=== PATIENT | male | born 1980 | race Caucasian/White ===

== ENCOUNTER 2019-04-24 15:49 | Emergency (ER) | payer OTHER, SELFPAY ==
[2019-04-24 15:56] VITALS: BP 143/82; PULSE 100; RESP 16; TEMP 36.8; O2SAT 98
--- NOTE | 2019-04-24 15:59 | ED.URI ---
HPI - URI/Sore Throat General Chief Complaint: Upper Respiratory Infection Stated Complaint: asthma Time Seen by Provider: 04/24/19 15:59 Source: patient and RN notes reviewed History of Present Illness HPI Narrative: Patient is a 38-year-old male presents the urgent care with complaints of asthma complications. Patient states that for the last week he has been wheezing, cough, shortness of breath. Patient states that he has been using his inhalers, nebulizer solution, Singulair and Claritin as prescribed. Patient also reports of chills and sweats but denies taking his temperature. No other acute complaints. No acute distress noted. Patient read the plan of care. Related Data Home Medications Medication Instructions Recorded Confirmed albuterol sulfate 1.25 mg INHALATION Q4H PRN 04/24/19 04/24/19 albuterol sulfate 2 puff INHALATION QID PRN 04/24/19 04/24/19 fluticasone propion-salmeterol 1 inh INHALATION Q12H 04/24/19 04/24/19 [Wixela Inhub] loratadine 10 mg PO DAILY 04/24/19 04/24/19 montelukast [Singulair] 10 mg PO DAILY 04/24/19 04/24/19 Allergies Allergy/AdvReac Type Severity Reaction Status Date / Time No Known Allergies Allergy Verified 04/24/19 16:08 Review of Systems Review of Systems: Narrative: CONSTITUTIONAL: Reports of chills and sweats EYES: Denies visual changes, redness, or discharge. ENT: Reports of sinus congestion CARDIOVASCULAR: Denies chest pain, palpitations, or edema. RESPIRATORY: Reports of cough with dyspnea and wheezing GASTROINTESTINAL: Denies abdominal pain, nausea, vomiting, or diarrhea. GENITOURINARY: Denies dysuria or hematuria. SKIN: Denies rash or itching. MUSCULOSKELETAL: Denies back pain, joint pain, or myalgia. NEUROLOGIC: Denies headache, numbness, or weakness. PMFSH Comments At the time of my signature, I reviewed and agree with the nursing past medical, surgical, social, and family history. There is no relevant family history pertinent to the patient complaint. Exam Narrative: Exam Narrative: GENERAL: This is a well-nourished, well-developed patient, in no apparent distress. HEAD: normocephalic, atraumatic. EYES: PERRL. Sclera clear/white. Vision is grossly intact. EARS: External ears normal, auditory canals clear and without drainage, TMs normal without perforation. Hearing grossly intact. NOSE: External nose normal with no obvious nasal discharge, nares without redness, clear rhinorrhea. THROAT: Mucous membranes moist, posterior pharynx clear. NECK: Neck supple CARDIOVASCULAR: Regular rate and rhythm without murmurs, gallops, or rubs. RESPIRATORY: Moderate inspiratory and expiratory wheezes throughout slightly diminished left upper lobe SKIN: warm, intact with no suspicious lesions or rash, good texture and turgor. NEURO: awake, alert, and oriented to person, place and time. There were no obvious focal neurologic abnormalities. EXTREMITIES: No clubbing, cyanosis, or edema. Course Vital Signs Vital signs: Vital Signs Temperature 98.2 F 04/24/19 15:56 Pulse Rate 100 04/24/19 15:56 Respiratory Rate 16 04/24/19 15:56 Blood Pressure 143/82 H 04/24/19 15:56 Pulse Oximetry 98 04/24/19 15:56 Temperature 98.2 F 04/24/19 15:56 Pulse Rate 100 04/24/19 15:56 Respiratory Rate 16 04/24/19 15:56 Blood Pressure 143/82 H 04/24/19 15:56 Pulse Oximetry 98 04/24/19 15:56 Reviewed?patient is informed that they may have pre-hypertension or hypertension based on a blood pressure reading in the department. I recommend the patient call the primary care provider listed on their discharge instructions or a physician of their choice this week to arrange follow-up for further evaluation of possible pre-hypertension or hypertension. MDM - URI/Sore Throat MDM Narrative Medical decision making narrative: Advised the patient to complete antibiotic regimen as prescribed. Make sure to eat and drink with medication. Complete steroid regimen as prescribed. Increase f
== END 2019-04-24 16:15 | disposition home or self-care (01) ==
PROVIDERS: Emergency Provider Nurse Practitioner Family
DX: J40 Bronchitis, not specified as acute or chronic (principal)
CPT/HCPCS: 99213; G0463

== ENCOUNTER 2019-09-22 13:04 | Emergency (ER) | payer OTHER, SELFPAY ==
--- NOTE | ~2019-09-22 | XR_ITS ---
EXAMINATION: XR chest 2V EXAM DATE: 09/22/2019 13:36 INDICATION: Cough. TECHNIQUE: Frontal and lateral projections of the chest obtained and reviewed. Comparison is made to prior examination from 11/26/2018. FINDINGS: There is moderate sliding gastroesophageal hiatal hernia. Mild hyperinflation. The lungs ar e clear. There are no pleural effusions. The cardiomediastinal silhouette is within normal limits. There is no pneumothorax suspected. The bones and soft tissues are unremarkable. There is no sign ificant interval change. IMPRESSION: 1. No acute cardiopulmonary findings. 2. Moderate hiatal hernia. Reviewed, dictated and finalized at location B.
[2019-09-22 13:09] VITALS: BP 134/79; PULSE 90; RESP 14; TEMP 36.8; O2SAT 98
--- NOTE | 2019-09-22 13:48 | ED.URI ---
HPI - URI/Sore Throat General Chief Complaint: Upper Respiratory Infection Stated Complaint: chest congestion/cough Time Seen by Provider: 09/22/19 13:31 Source: patient and RN notes reviewed Mode of arrival: ambulatory Limitations: no limitations History of Present Illness HPI Narrative: Patient presents today complaining of a 3-week history of nasal congestion, chest congestion, occasional cough with clear sputum, and occasional shortness of breath with exertion. Denies fever, wheezing. He does have severe asthma and allergies. He has been using albuterol, Singulair, Claritin, Mucinex with some relief. He ran out of his nebulizer solution yesterday. MD elicited complaint: cough Related Data Home Medications Medication Instructions Recorded Confirmed albuterol sulfate 1.25 mg INHALATION Q4H PRN 04/24/19 09/22/19 albuterol sulfate 2 puff INHALATION QID PRN 04/24/19 09/22/19 loratadine 10 mg PO DAILY 04/24/19 09/22/19 montelukast [Singulair] 10 mg PO DAILY 04/24/19 09/22/19 fluticasone propion-salmeterol 1 inh INHALATION BID 09/22/19 09/22/19 Allergies Allergy/AdvReac Type Severity Reaction Status Date / Time No Known Allergies Allergy Verified 09/22/19 13:17 Review of Systems Review of Systems: Narrative: CONSTITUTIONAL: Denies body aches, fever, chills, or sweats. EYES: Denies visual changes, redness, or discharge. ENT: Denies rhinorrhea, congestion, sore throat, or otalgia. CARDIOVASCULAR: Denies chest pain, palpitations, or edema. RESPIRATORY: + Cough, chest congestion, shortness of breath with exertion GASTROINTESTINAL: Denies abdominal pain, nausea, vomiting, or diarrhea. GENITOURINARY: Denies dysuria or hematuria. SKIN: Denies rash, itching, or wounds. MUSCULOSKELETAL: Denies back pain, joint pain, or myalgia. NEUROLOGIC: Denies headache, numbness, tingling, or weakness. PSYCH: Denies depression or anxiety. [facility] Past Medical History Medical History (Updated 09/22/19 @ 13:52 by Chetna Alcocer, PROCEDURES ANALYST, BC) Asthma Seasonal allergies Comments At time of signature, I have reviewed and agree with nursing past medical, surgical, social and family history unless otherwise noted. Please see nursing chart for further information. There is no relevant family history pertinent to the presenting complaint Exam Narrative: Exam Narrative: GENERAL: Well-appearing, well-nourished, and in no acute distress. HEAD: Normocephalic, atraumatic. EYES: EOMI. No redness or drainage. Conjunctivae normal. ENT: Mucous membranes pink and moist. Nares clear. No rhinorrhea. TMs normal bilaterally. Throat normal. Uvula midline. NECK: Normal AROM. Supple. No lymphadenopathy. CHEST: No respiratory distress. Clear to auscultation. HEART: Regular rate and rhythm. No murmur appreciated. Normal peripheral pulses. EXTREMITIES: Normal range of motion. No edema. SKIN: Warm, dry, no rash. Capillary refill normal. Normal skin turgor. NEURO: No focal deficits. Alert and oriented x3. Gait steady. PSYCH: Normal affect. No signs of depression or anxiety. Course Vital Signs Vital signs: Vital Signs Temperature 98.3 F 09/22/19 13:09 Pulse Rate 90 09/22/19 13:09 Respiratory Rate 14 09/22/19 13:09 Blood Pressure 134/79 09/22/19 13:09 Pulse Oximetry 98 09/22/19 13:09 Temperature 98.3 F 09/22/19 13:09 Pulse Rate 90 09/22/19 13:09 Respiratory Rate 14 09/22/19 13:09 Blood Pressure 134/79 09/22/19 13:09 Pulse Oximetry 98 09/22/19 13:09 Reviewed. Pt has been instructed to follow up with his PCP regarding his elevated blood pressure today. MDM - URI/Sore Throat Differential Diagnosis Differential diagnosis: Likely upper respiratory infection, sinusitis, bronchitis and other (Asthma exacerbation, pneumonia) Imaging Data Radiologist's impression: ITS Impressions Chest X-Ray 09/22/19 13:37 IMPRESSION: 1. No acute cardiopulmonary findings. 2. Moderate hiatal hernia. Crit
== END 2019-09-22 14:00 | disposition home or self-care (01) ==
PROVIDERS: Emergency Provider Nurse Practitioner; PCP Internal Medicine
DX: J45.901 Unspecified asthma with (acute) exacerbation (principal)
CPT/HCPCS: 71046; 99213; G0463

== ENCOUNTER 2020-11-12 12:38 | Emergency (ER) | payer OTHER, SELFPAY ==
[2020-11-12 12:45] VITALS: BP 137/70; PULSE 100; RESP 18; TEMP 37.8; O2SAT 97
[2020-11-12 12:54] VITALS: BP 137/70; PULSE 100; RESP 18; TEMP 37.8; O2SAT 97
--- NOTE | 2020-11-12 13:15 | ED.ASTHMA ---
HPI - Asthma General Chief Complaint: Asthma Stated Complaint: asthma issues Time Seen by Provider: 11/12/20 13:16 Source: patient and RN notes reviewed Mode of arrival: ambulatory Limitations: no limitations History of Present Illness HPI Narrative: 40-year-old male with history of asthma neuromuscular disease presents with concern for asthma exacerbation. Reports he has been using his nebulizer every 6 hours with persistent wheezing. He reports body aches, cough, rhinorrhea, nasal congestion. He denies current shortness of breath, loss of sense of taste or smell. Denies known sick contacts. MD complaint: wheezing Related Data Home Medications Medication Instructions Recorded Confirmed albuterol sulfate 2 puff INHALATION QID PRN 04/24/19 11/12/20 loratadine 10 mg PO DAILY 04/24/19 11/12/20 montelukast [Singulair] 10 mg PO DAILY 04/24/19 11/12/20 fluticasone propion-salmeterol 250 inh INHALATION BID PRN 11/12/20 11/12/20 [Wixela Inhub] Allergies Allergy/AdvReac Type Severity Reaction Status Date / Time No Known Allergies Allergy Verified 09/22/19 13:17 Review of Systems Review of Systems: CONSTITUTIONAL: Denies malaise, chills, sweats, or fever. EYES: Denies visual changes, redness, or discharge. ENT: Reports rhinorrhea, congestion. Denies sinus pain, otalgia and sore throat. CARDIOVASCULAR: Denies chest pain, palpitations, or edema. RESPIRATORY: Reports cough, wheezing, dyspnea. GASTROINTESTINAL: Denies abdominal pain, nausea, vomiting, diarrhea SKIN: Denies rash or itching. MUSCULOSKELETAL: Reports myalgia. NEUROLOGIC: Denies headache. All systems reviewed & are unremarkable except as noted in HPI and below PMFSH Past Medical History Medical History (Updated 11/12/20 @ 13:24 by Iram Palencia NP) Asthma Seasonal allergies Social History Social History Gender identity (if verbalized by the patient): Male Comments At time of signature, agree with nursing past medical, surgical, social and family history. There is no relevant family history pertinent to the presenting complaint Exam Narrative: GENERAL: Well-appearing, well-nourished, and in no acute distress. HEAD: Normocephalic EYES: PERRLA, conjunctivae clear ENT: Nares clear, clear discharge. Mucous membranes moist. TM pearly machado with dull light reflex bilaterally; no tragal tenderness. Oropharynx not erythematous without lesions. Tonsils not enlarged and without exudate, no drooling, no hoarseness, no trismus, uvula midline. NECK: Supple. No lymphadenopathy CHEST: Scattered inspiratory and expiratory wheeze, scattered rhonchi, breath sounds equal. Ge, or stridor. No respiratory distress, speaks in full sentences. HEART: Regular rate and rhythm. No murmur heard. SKIN: Warm, dry, no rash. NEURO: Alert and oriented x3. PSYCH: Normal mood and affect Course Course Emergency Course: Patient is aware of diagnosis, understands and agrees to treatment plan. Anticipatory guidance given. Patient agrees to follow-up as directed and is aware of reasons to seek care at the emergency department. Portions of this record may have been created with voice recognition software Vital Signs Vital signs: Vital Signs Temperature 100.1 F H 11/12/20 12:45 Pulse Rate 100 11/12/20 12:45 Respiratory Rate 18 11/12/20 12:45 Blood Pressure 137/70 11/12/20 12:45 Pulse Oximetry 97 11/12/20 12:45 Temperature 100.1 F H 11/12/20 12:54 Pulse Rate 100 11/12/20 12:54 Respiratory Rate 18 11/12/20 12:54 Blood Pressure 137/70 11/12/20 12:54 Pulse Oximetry 97 11/12/20 12:54 Reviewed. Pt has been instructed to follow up with his primary care provider within the next week regarding his elevated blood pressure today. MDM - Asthma MDM Narrative Medical decision making narrative: Differential diagnosis considered: Siddiqui virus, strep pharyngitis, allergic rhinitis, upper respiratory tract infection, sinusitis, rhinosinusitis, nasopharyngiti
== END 2020-11-12 13:43 | disposition home or self-care (01) ==
PROVIDERS: Emergency Provider Nurse Practitioner; PCP Internal Medicine
DX: J45.41 Moderate persistent asthma with (acute) exacerbation (principal); Z20.822 Contact with and (suspected) exposure to COVID-19
CPT/HCPCS: 87426; 99213; C9803; G0463

== ENCOUNTER 2021-05-08 15:11 | Emergency (ER) | payer OTHER, SELFPAY ==
--- NOTE | ~2021-05-08 | XR_ITS ---
EXAMINATION: XR chest 2V DATE: 05/08/2021 15:39 INDICATION: Cough and congestion TECHNIQUE: PA and lateral views of the chest are obtained. COMPARISON: 09/22/2019 FINDINGS: The lungs are free of acute opacities. There is no pleural effusion or pneumothorax. The he art size is normal. There is a moderate-sized hiatal hernia. There is mild thoracic spondylosis. IMPRESSION: 1. No acute cardiopulmonary abnormality. Reviewed, dictated and finalized at location F. RAM ASSISTANT
[2021-05-08 15:16] VITALS: BP 142/80; PULSE 97; RESP 20; TEMP 36.9; O2SAT 98
--- NOTE | 2021-05-08 15:45 | ED.URI ---
HPI - URI/Sore Throat General Chief Complaint: Upper Respiratory Infection Stated Complaint: Chest Congestion Time Seen by Provider: 05/08/21 15:25 Source: patient, RN notes reviewed and old records reviewed Mode of arrival: ambulatory Limitations: no limitations History of Present Illness HPI Narrative: 40-year-old male who presents to [facility] care with complaints of cough, congestion,shortness of breath, wheezing , and orthopnea for the past 4 days. Patient reports that he has been using his nebulizer and treatments didn't seem to be relieving his symptoms. Patient has scattered wheezing throughout lung wilkinson with tightness and shortness of breath. Patient is able to speak inn full sentences no nasal flaring or tachypnea noted. Patient reports that he has not had COVID vaccinations. MD elicited complaint: cough and other (Shortness of breath and wheezing) Pertinent past history: asthma and seasonal allergies Onset (ago): day(s) (4) Consistency: constant Severity: moderate Description of mucous: clear Able to tolerate fluids by mouth: Yes Exacerbating factors: exertion Relieving factors: other (treatments help some) Associated symptoms: cough Treatments prior to arrival: other (neb treatments) Related Data Home Medications Medication Instructions Recorded Confirmed albuterol sulfate 2 puff INHALATION QID PRN 04/24/19 05/08/21 loratadine 10 mg PO DAILY 04/24/19 05/08/21 montelukast [Singulair] 10 mg PO DAILY 04/24/19 05/08/21 atorvastatin 10 mg PO DAILY 05/08/21 05/08/21 fluticasone propion-salmeterol 1 inh INHALATION Q12H 05/08/21 05/08/21 [Advair Diskus] Allergies Allergy/AdvReac Type Severity Reaction Status Date / Time No Known Allergies Allergy Verified 05/08/21 15:34 Review of Systems Review of Systems: CONSTITUTIONAL: Denies fever, chills, or sweats. EYES: Denies visual changes, redness, or discharge. ENT: Denies rhinorrhea, congestion, sore throat, or otalgia. CARDIOVASCULAR: Denies chest pain, palpitations, or edema. RESPIRATORY: Positive cough or dyspnea. GASTROINTESTINAL: Denies abdominal pain, nausea, vomiting, or diarrhea. GENITOURINARY: Denies dysuria or hematuria. SKIN: Denies rash or itching. MUSCULOSKELETAL: Denies back pain, joint pain, or myalgia. NEUROLOGIC: Denies headache, numbness, or weakness. PSYCHIATRIC: Positive history of anxiety or depression. All systems reviewed & are unremarkable except as noted in HPI and below PMFSH Past Medical History Medical History (Updated 05/08/21 @ 21:54 by Kiley Perales NP) Asthma Muscular dystrophy Seasonal allergies Social History Social History (Updated 05/08/21 @ 22:04 by Kiley Perales NP) Social History: Has some exposure to 2nd hand tobacco Smoking packs per day: 0.25 Smoking cigarettes per day: 5.0 Years smoked: 20 Smoking pack-years: 5.00 Smoking status: Former smoker Additional smoking assessment comments: quit one year ago Alcohol intake: never Substance use: never Living arrangements: with family Gender identity (if verbalized by the patient): Male Comments At time of signature, agree with nursing past medical, surgical, social and family history. There is no relevant family history pertinent to the presenting complaint Exam Narrative: GENERAL: Well-appearing, well-nourished, and in no acute distress. HEAD: Normocephalic, atraumatic. EYES: PERRLA and EOMI. ENT: Nares clear, no rhinorrhea or epistaxis. Mucous membranes moist.TM's normal with good light reflex, throat pink with no lesions or exudates, no tonsil swelling, edentulous NECK: Supple.no lymphadenopathy CHEST: Scattered wheezing on auscultation. No respiratory distress.SAO2 98% on room air. Able to speak in full sentences, no nasal flaring or any tachypnea noted. HEART: Regular rate and rhythm. No murmur heard. Normal peripheral pulses. ABDOMEN: Soft, nontender, nondistended, normal active bowel sounds. EXTREMITIES: Normal range of motion.
[2021-05-08] MEDS: IPRATROPIUM BR 0.02% INH SOLN 0.5 MG/2.5 ML VIAL INHALATION (16:00)
[2021-05-08] MEDS: ALBUTEROL SULFATE NEB 2.5 MG/3 ML INH INHALATION (16:00)
== END 2021-05-08 17:05 | disposition home or self-care (01) ==
PROVIDERS: Emergency Provider Registered Nurse; PCP Internal Medicine
DX: J45.41 Moderate persistent asthma with (acute) exacerbation (principal); Z20.822 Contact with and (suspected) exposure to COVID-19; Z87.891 Personal history of nicotine dependence; G71.00 Muscular dystrophy, unspecified
CPT/HCPCS: 71046; 87426; 94640; 99213; C9803; G0463

== ENCOUNTER 2021-08-23 13:17 | Emergency (ER) | payer OTHER, SELFPAY ==
[2021-08-23 13:40] VITALS: BP 137/79; PULSE 111; RESP 16; TEMP 37.1; O2SAT 95
--- NOTE | 2021-08-23 14:39 | ED.URI ---
HPI - URI/Sore Throat General Chief Complaint: Upper Respiratory Infection Stated Complaint: Cough/Chest Congestion/Fever Time Seen by Provider: 08/23/21 14:39 Source: patient Mode of arrival: ambulatory Limitations: no limitations History of Present Illness HPI Narrative: 40-year-old male presents to [facility] care with complaints of cough, chest congestion with fever up to 103 since 5 days. Patient reports that his mother has also been ill and his brother, reports that he has not had COVID vaccinations or flu shot.. Patient reports that his cough is making it hard to sleep and he also has asthma with some wheezing noted. Patient reports that he has felt some dyspnea and has been using his inhaler. MD elicited complaint: fever, cough and other (dyspnea and wheezing) Pertinent past history: asthma Onset (ago): day(s) (5) Description of mucous: clear Treatments prior to arrival: other (Mucinex and inhalers) Related Data Home Medications Medication Instructions Recorded Confirmed albuterol sulfate 90 mcg/actuation 2 puff inhalation QID PRN 04/24/19 08/23/21 aerosol inhaler Shortness Of Breath Or Wheezing montelukast 10 mg tablet 10 mg PO DAILY 04/24/19 08/23/21 (Singulair) atorvastatin 10 mg tablet 10 mg PO DAILY 05/08/21 08/23/21 fluticasone 250 mcg-salmeterol 50 1 inh inhalation Q12H 05/08/21 08/23/21 mcg/dose blistr powdr for inhalation (Advair Diskus) Allergies Allergy/AdvReac Type Severity Reaction Status Date / Time No Known Allergies Allergy Verified 08/23/21 13:29 Review of Systems Review of Systems: CONSTITUTIONAL: Positive episodes of fever, chills, or sweats. EYES: Denies visual changes, redness, or discharge. ENT:Positive for rhinorrhea, congestion, no sore throat, or otalgia. CARDIOVASCULAR: Denies chest pain, palpitations, or edema. RESPIRATORY: Positive for cough and some dyspnea. GASTROINTESTINAL: Denies abdominal pain, nausea, vomiting, or diarrhea. GENITOURINARY: Denies dysuria or hematuria. SKIN: Denies rash or itching. MUSCULOSKELETAL: Denies back pain, joint pain, or myalgia. NEUROLOGIC: Denies headache, numbness, or weakness. PSYCHIATRIC: Denies anxiety or depression. [facility] Past Medical History Medical History Asthma Muscular dystrophy Seasonal allergies Social History Social History Social History: Has some exposure to 2nd hand tobacco Smoking packs per day: 0.25 Smoking cigarettes per day: 5.0 Years smoked: 20 Smoking pack-years: 5.00 Smoking status: Former smoker Additional smoking assessment comments: quit one year ago Alcohol intake: never Substance use: never Gender identity (if verbalized by the patient): Male Comments at time of signature, agree with nursing past medical, surgical, social and family history. There is no relevant family history pertinent to the presenting complaint Exam Narrative: GENERAL: Well-appearing, well-nourished, and in no acute distress. HEAD: Normocephalic, atraumatic. EYES: PERRLA and EOMI. ENT: Nares red with clear rhinorrhea no epistaxis. Mucous membranes moist.TM's normal with good light reflex throat pink with no lesions or exudates no tonsil enlargement, NECK: Supple. no lymphadenopathy CHEST: Clear to auscultation. No respiratory distress.SAO2 95% on room air HEART: Regular rate and rhythm. No murmur heard. Normal peripheral pulses. ABDOMEN: Soft, nontender, nondistended, normal active bowel sounds. EXTREMITIES: Normal range of motion. No edema. SKIN: Warm, dry, no rash. NEURO: No focal deficits. Alert and oriented x3. Course Course Level of Care: Express Care Visit Vital Signs Vital signs: Vital Signs Temperature 37.1 C 08/23/21 13:40 Pulse Rate 111 H 08/23/21 13:40 Respiratory Rate 16 08/23/21 13:40 Blood Pressure 137/79 08/23/21 13:40 Pulse Oximetry 95 08/23/21 13:40 Oxy
--- NOTE | 2021-08-23 15:08 | ED.URI ---
HPI - URI/Sore Throat General Chief Complaint: Upper Respiratory Infection Stated Complaint: Cough/Chest Congestion/Fever Time Seen by Provider: 08/23/21 14:39 Source: patient Mode of arrival: ambulatory Limitations: no limitations History of Present Illness HPI Narrative: 40-year-old male who presents to [facility] care with complaints of illness since . He also reports that his mother and brother have been ill with similar symptoms. Patient has history of asthma and takes daily inhalers. Patient states cough has increased and is affecting his sleep Treatments prior to arrival: other (Mucinex and inhalers) Related Data Home Medications Medication Instructions Recorded Confirmed albuterol sulfate 90 mcg/actuation 2 puff inhalation QID PRN 04/24/19 08/23/21 aerosol inhaler Shortness Of Breath Or Wheezing montelukast 10 mg tablet 10 mg PO DAILY 04/24/19 08/23/21 (Singulair) atorvastatin 10 mg tablet 10 mg PO DAILY 05/08/21 08/23/21 fluticasone 250 mcg-salmeterol 50 1 inh inhalation Q12H 05/08/21 08/23/21 mcg/dose blistr powdr for inhalation (Advair Diskus) Allergies Allergy/AdvReac Type Severity Reaction Status Date / Time No Known Allergies Allergy Verified 08/23/21 13:29 [facility] Past Medical History Medical History Asthma Muscular dystrophy Seasonal allergies Social History Social History Social History: Has some exposure to 2nd hand tobacco Smoking packs per day: 0.25 Smoking cigarettes per day: 5.0 Years smoked: 20 Smoking pack-years: 5.00 Smoking status: Former smoker Additional smoking assessment comments: quit one year ago Alcohol intake: never Substance use: never Gender identity (if verbalized by the patient): Male Course Vital Signs Vital signs: Vital Signs Temperature 37.1 C 08/23/21 13:40 Pulse Rate 111 H 08/23/21 13:40 Respiratory Rate 16 08/23/21 13:40 Blood Pressure 137/79 08/23/21 13:40 Pulse Oximetry 95 08/23/21 13:40 Oxygen Delivery Room Air 08/23/21 13:40 Temperature 37.1 C 08/23/21 13:40 Pulse Rate 111 H 08/23/21 13:40 Respiratory Rate 16 08/23/21 13:40 Blood Pressure 137/79 08/23/21 13:40 Pulse Oximetry 95 08/23/21 13:40 Oxygen Delivery Room Air 08/23/21 13:40 MDM - URI/Sore Throat Medical Records Attestation: I reviewed the patient's medical records. Critical Care Time Critical Care Time Critical Care Time: No Discharge Plan Discharge Clinical Impression: URI, acute Asthma exacerbation Qualifiers: Asthma severity: moderate Asthma persistence: persistent Qualified Code(s): J45.41 - Moderate persistent asthma with (acute) exacerbation Patient Disposition: Home, Self-Care Condition: Stable Instructions: Antibiotic Form, Bronchospasm (ED) Additional Instructions: Increase fluids especially juices and water [id number] cough and cold medicine of your choice for your symptoms Continue your inhaler/nebulizer as directed Steroids as directed--take with food heat to the face 20-30 minutes 4-6 times a day for pain Salt water gargles, throat lozenges or throat sprays as desired Antibiotic as directed--finished the medication If your symptoms persist, change or worsen significantly before you can contact your personal physician then please, without delay, go to the emergency department for further evaluation. Follow-up with PCP in 7-10 days or sooner if needed Follow up with PCP soon in regards to your blood pressure which is elevated above threshold for referral. Blood pressure above 120/80 may indicate pre-hypertension. Prescriptions: New azithromycin 250 mg tablet See Rx Instructions .ROUTE .COMPLEX Qty: 6 0RF Rx Instructions: For 250 mg dose pack: take 500 mg today (day 1), then 250 mg for 4 days (days 2-5) prednisone 10 mg tablet 10 mg PO DAILY Qty:
== END 2021-08-23 15:19 | disposition home or self-care (01) ==
PROVIDERS: Emergency Provider Registered Nurse; PCP Internal Medicine
DX: J45.901 Unspecified asthma with (acute) exacerbation (principal); J06.9 Acute upper respiratory infection, unspecified; Z87.891 Personal history of nicotine dependence; G71.00 Muscular dystrophy, unspecified
CPT/HCPCS: 99213; G0463

== ENCOUNTER 2022-01-02 13:44 | Emergency (ER) | payer OTHER, SELFPAY ==
[2022-01-02 13:46] VITALS: BP 156/86; PULSE 98; RESP 16; TEMP 36.9; O2SAT 97
--- NOTE | 2022-01-02 13:48 | ED.URI ---
HPI - URI/Sore Throat General Chief Complaint: Upper Respiratory Infection Stated Complaint: sinus pressure ears chest Time Seen by Provider: 01/02/22 13:49 Source: patient and RN notes reviewed History of Present Illness HPI Narrative: Patient is a 41-year-old male who presents the urgent care with complaints of severe sinus pressure/ear pain/chest congestion. Patient states is been ongoing for approximately 1 week and he has been using Claritin and Mucinex D. Patient states that he has been using his inhalers and nebulizer treatments as directed. Patient denies of any fevers, nausea, vomiting, chest pain or shortness of breath. No other acute complaints. No acute distress noted. Patient aware of the plan of care. Some parts of this dictation were generated by voice recognition software and may contain typographical and/or grammatical inaccuracies. Related Data Home Medications Medication Instructions Recorded Confirmed albuterol sulfate 90 mcg/actuation 2 puff inhalation QID PRN 04/24/19 01/02/22 aerosol inhaler Shortness Of Breath Or Wheezing montelukast 10 mg tablet 10 mg PO DAILY 04/24/19 01/02/22 (Singulair) atorvastatin 10 mg tablet 10 mg PO DAILY 05/08/21 01/02/22 fluticasone 250 mcg-salmeterol 50 1 inh inhalation Q12H 05/08/21 01/02/22 mcg/dose blistr powdr for inhalation (Advair Diskus) cyclobenzaprine 10 mg tablet 10 mg PO HS 01/02/22 01/02/22 fluticasone 250 mcg-salmeterol 50 1 inh inhalation Q12H 01/02/22 01/02/22 mcg/dose blistr powdr for inhalation (Advair Diskus) loratadine 10 mg tablet (Claritin) 10 mg PO DAILY 01/02/22 01/02/22 Allergies Allergy/AdvReac Type Severity Reaction Status Date / Time No Known Allergies Allergy Verified 01/02/22 13:52 Review of Systems Review of Systems: CONSTITUTIONAL: Denies fever, chills, or sweats. EYES: Denies visual changes, redness, or discharge. ENT: Reports of sinus congestion, postnasal drainage and bilateral otalgia CARDIOVASCULAR: Denies chest pain, palpitations, or edema. RESPIRATORY: Reports of nonproductive cough with intermittent dyspnea GASTROINTESTINAL: Denies abdominal pain, nausea, vomiting, or diarrhea. GENITOURINARY: Denies dysuria or hematuria. SKIN: Denies rash or itching. MUSCULOSKELETAL: Denies back pain, joint pain, or myalgia. NEUROLOGIC: Denies headache, numbness, or weakness. All other systems reviewed are negative, except as documented in HPI. [facility] Past Medical History Medical History Asthma Muscular dystrophy Seasonal allergies Social History Social History Social History: Has some exposure to 2nd hand tobacco Smoking packs per day: 0.25 Smoking cigarettes per day: 5.0 Years smoked: 20 Smoking pack-years: 5.00 Smoking status: Former smoker Additional smoking assessment comments: quit one year ago Alcohol intake: never Substance use: never Gender identity (if verbalized by the patient): Male Comments At the time of my signature, I reviewed and agree with the nursing past medical, surgical, social, and family history. There is no relevant family history pertinent to the patient complaint. Exam Narrative: GENERAL: This is a well-nourished, well-developed patient, in no apparent distress. HEAD: normocephalic, atraumatic. EYES: PERRL. Sclera clear/white. Vision is grossly intact. EARS: External ears normal, auditory canals clear and without drainage, TMs normal without perforation. Hearing grossly intact. NOSE: External nose normal with no obvious nasal discharge, nares without redness, clear rhinorrhea. THROAT: Mucous membranes moist, posterior pharynx clear. Moderate postnasal drainage NECK: Neck supple CARDIOVASCULAR: Regular rate and rhythm without murmurs, gallops, or rubs. RESPIRATORY: Inspiratory and expiratory wheezes throughout with slight crackles SKIN: warm, intact with no susp
[2022-01-02 13:55] VITALS: BP 156/86; PULSE 98; RESP 16; TEMP 36.9; O2SAT 97
== END 2022-01-02 14:08 | disposition home or self-care (01) ==
PROVIDERS: Emergency Provider Nurse Practitioner Family; PCP Internal Medicine
DX: J40 Bronchitis, not specified as acute or chronic (principal); J32.9 Chronic sinusitis, unspecified; Z87.891 Personal history of nicotine dependence; J45.909 Unspecified asthma, uncomplicated; G71.00 Muscular dystrophy, unspecified
CPT/HCPCS: 99213; G0463

== ENCOUNTER 2022-01-27 14:22 | Emergency (ER) | payer OTHER, SELFPAY ==
--- NOTE | ~2022-01-27 | XR_ITS ---
EXAMINATION: XR chest 2V DATE: 01/27/2022 14:48 INDICATION: Asthma. Wheezing. TECHNIQUE: Frontal and lateral views of the chest were obtained. COMPARISON: Chest 2 views 05/08/2021 FINDINGS: There is no pneumonia, pleural effusion, or pneumothorax. The heart size is normal. There i s a large hiatal hernia. There is mild chronic anterior wedging of multiple thoracic vertebral bodies . IMPRESSION: 1. Large hiatal hernia. Reviewed, dictated and finalized at location A. IMPRESSION: 1. Large hiatal hernia.
[2022-01-27 14:26] VITALS: BP 148/73; PULSE 105; RESP 16; TEMP 36.6; O2SAT 98
--- NOTE | 2022-01-27 14:37 | ED.URI ---
HPI - URI/Sore Throat General Chief Complaint: Upper Respiratory Infection Stated Complaint: asthma chest congestion Time Seen by Provider: 01/27/22 14:38 Source: patient and RN notes reviewed Mode of arrival: ambulatory Limitations: no limitations History of Present Illness HPI Narrative: 41-year-old male presents to the [facility] with chest congestion and asthma. patient states that he has been on amoxicillin. Had seen his doctor recently. States that they did not prescribed prednisone and that is normally what he needs for his asthma and bronchitis. Has been using his nebulizer every 4-6 hours. Denies any chest pain. Denies any significant shortness of breath. Reports that he would really like a chest x-ray to make sure he does not have a pneumonia or anything else going on. Denies fevers Related Data Home Medications Medication Instructions Recorded Confirmed albuterol sulfate 90 mcg/actuation 2 puff inhalation QID PRN 04/24/19 01/27/22 aerosol inhaler Shortness Of Breath Or Wheezing montelukast 10 mg tablet 10 mg PO DAILY 04/24/19 01/27/22 (Singulair) atorvastatin 10 mg tablet 10 mg PO DAILY 05/08/21 01/27/22 cyclobenzaprine 10 mg tablet 10 mg PO HS 01/02/22 01/27/22 Allergies Allergy/AdvReac Type Severity Reaction Status Date / Time No Known Allergies Allergy Verified 01/27/22 14:33 Review of Systems Review of Systems: All systems reviewed & are unremarkable except as noted in HPI and below Constitutional: Constitutional: Reports no additional constitutional complaints, Denies chills and Denies fever(s) Eyes: Eyes: Reports no additional eye complaints ENT: Reports system reviewed and no additional complaints, except as documented Cardiovascular: Cardiovascular: Reports no additional cardiovascular complaints Respiratory: Respiratory: Reports as per HPI, Reports cough, Reports dyspnea and Reports wheezing Gastrointestinal: Gastrointestinal: Reports no additional gastrointestinal complaints Musculoskeletal: Musculoskeletal: Reports no additional musculoskeletal complaints Integumentary/Breasts: Skin/Breast: Reports system reviewed and no additional complaints, except as docu Neurologic: Reports system reviewed and no additional complaints, except as documented Psychiatric: Psychiatric: Reports no additional psychiatric complaints Allergic/Immunologic: Allergic/Immunologic: Reports no additional allergic/immunologic complaints PMFSH Past Medical History Medical History Asthma Muscular dystrophy Seasonal allergies Social History Social History Social History: Has some exposure to 2nd hand tobacco Smoking packs per day: 0.25 Smoking cigarettes per day: 5.0 Years smoked: 20 Smoking pack-years: 5.00 Smoking status: Former smoker Additional smoking assessment comments: quit one year ago Alcohol intake: never Substance use: never Gender identity (if verbalized by the patient): Male Comments At the time of my signature, I reviewed and agree with the nursing past medical, surgical, social, and family history. There is no relevant family history pertinent to the patient complaint. Exam Const: General: healthy appearing, no acute distress, alert and well nourished Nutritional Appearance: well nourished Orientation/consciousness: patient oriented x3 Limitations: no limitations HENMT: Head: normal to inspection Ears: external ears normal, TM's normal bilaterally and EAC's normal Face/Nose/Sinus: Normal external nose present and Normal nares present Face and sinus: normal facial exam Mouth: Yes Normal oral and palatal mucosa present, Yes lip normal and Yes moist mucous membranes Throat: posterior oropharynx normal and uvula midline Eyes: General: appearance normal, both eyes and all related structures Pupils: Equal, round and reactive pupils present Neck:
== END 2022-01-27 15:12 | disposition home or self-care (01) ==
PROVIDERS: Emergency Provider Nurse Practitioner; PCP Internal Medicine
DX: J40 Bronchitis, not specified as acute or chronic (principal); Z87.891 Personal history of nicotine dependence; G71.00 Muscular dystrophy, unspecified; J45.909 Unspecified asthma, uncomplicated
CPT/HCPCS: 71046; 99213; G0463

== ENCOUNTER 2022-04-14 09:05 | Emergency (ER) | payer OTHER, SELFPAY ==
[2022-04-14 09:10] VITALS: BP 155/85; PULSE 100; RESP 18; TEMP 37.1; O2SAT 98
--- NOTE | 2022-04-14 09:59 | ED.URI ---
HPI - URI/Sore Throat General Chief Complaint: Upper Respiratory Infection Stated Complaint: Asthma/Sinus/congestion Time Seen by Provider: 04/14/22 09:59 Source: patient, RN notes reviewed and old records reviewed Mode of arrival: ambulatory Limitations: no limitations History of Present Illness HPI Narrative: 41-year-old male who presents to [facility] Care with complaints of some tightness with his breathing, shortness of breathing and wheezing for the past 3 days. Patient has history of asthma and reports that he has been using his nebulizer for his symptoms with some improvement but not resolution. Patient states that he has increased dyspnea especially with exertion with wheezing, denies any know fevers has had some congestion. Patient reports that he has been taking some Mucinex. MD elicited complaint: cough and sore throat Pertinent past history: asthma Onset (ago): day(s) (3) Treatments prior to arrival: other (Nebulizer, Mucinex) Related Data Home Medications Medication Instructions Recorded Confirmed albuterol sulfate 90 mcg/actuation 2 puff inhalation QID PRN 04/24/19 04/14/22 aerosol inhaler Shortness Of Breath Or Wheezing montelukast 10 mg tablet 10 mg PO DAILY 04/24/19 04/14/22 (Singulair) atorvastatin 10 mg tablet 10 mg PO DAILY 05/08/21 04/14/22 cyclobenzaprine 10 mg tablet 10 mg PO HS 01/02/22 04/14/22 ipratropium 0.5 mg-albuterol 3 mg 3 ml inhalation Q4-6H PRN 04/14/22 04/14/22 (2.5 mg base)/3 mL nebulization Shortness Of Breath soln Allergies Allergy/AdvReac Type Severity Reaction Status Date / Time No Known Allergies Allergy Verified 04/14/22 09:48 Review of Systems Review of Systems: CONSTITUTIONAL: Denies malaise, chills, sweats, or fever. EYES: Denies visual changes, redness, or discharge. ENT: Reports rhinorrhea, congestion, sinus pain, no otalgia and sore throat. CARDIOVASCULAR: Denies chest pain, palpitations, or edema. RESPIRATORY: Reports cough.? Reports some dyspnea, tightness in chest with breathing. GASTROINTESTINAL: Denies abdominal pain, nausea, vomiting, diarrhea SKIN: Denies rash or itching. MUSCULOSKELETAL: Denies myalgia. NEUROLOGIC: Denies headache. All systems reviewed & are unremarkable except as noted in HPI and below PMFSH Past Medical History Medical History (Updated 04/14/22 @ 20:43 by Kiley Perales NP) Asthma Elevated cholesterol Muscular dystrophy Seasonal allergies Social History Social History Social History: Has some exposure to 2nd hand tobacco Smoking packs per day: 0.25 Smoking cigarettes per day: 5.0 Years smoked: 20 Smoking pack-years: 5.00 Smoking status: Former smoker Additional smoking assessment comments: quit one year ago Alcohol intake: never Substance use: never Living arrangements: with family Gender identity (if verbalized by the patient): Male Comments At time of signature, agree with nursing past medical, surgical, social and family history. There is no relevant family history pertinent to the presenting complaint Exam Narrative: GENERAL: Well-appearing, well-nourished, and in no acute distress. HEAD: Normocephalic EYES: PERRLA, conjunctivae clear ENT: Nares clear, turbinates edematous and erythematous, clear discharge. Mucous membranes moist. TM pearly machado with dull light reflex bilaterally; no tragal tenderness. Oropharynx erythematous without lesions. Tonsils not enlarged and without exudate, no drooling, no hoarseness, no trismus, uvula midline.some post nasal drainage. NECK: Supple. No lymphadenopathy CHEST: Scattered wheezing on auscultation, breath sounds equal.Scattered wheezing,no rhonchi, rales, or stridor. No respiratory distress, speaks in full sentences. cough dry SAO2 98% on room air HEART: Regular rate and rhythm. No murmur heard. SKIN: Warm, dry, no rash. NEURO: Alert and oriented x3. PSYCH: Normal mood an
== END 2022-04-14 10:18 | disposition home or self-care (01) ==
PROVIDERS: Emergency Provider Registered Nurse; PCP Internal Medicine
DX: J45.41 Moderate persistent asthma with (acute) exacerbation (principal); Z87.891 Personal history of nicotine dependence
CPT/HCPCS: 99213; G0463

== ENCOUNTER 2023-02-08 15:45 | Emergency (ER) | payer OTHER, SELFPAY ==
[2023-02-08 15:53] VITALS: BP 152/84; PULSE 99; RESP 18; TEMP 36.7; O2SAT 97
--- NOTE | 2023-02-08 16:04 | ED.URI ---
HPI - URI/Sore Throat General Chief Complaint: Upper Respiratory Infection Stated Complaint: Shortness of Breath/Sinus Congestion Source: patient and RN notes reviewed History of Present Illness HPI Narrative: 42 yo M presents to urgent care with complaints of his asthma acting up. Pt reports cough, wheezing, and SOB x 3 days. pt states he felt like this last week but it went away on it's own. Pt reports using his inhaler with moderate relief. Denies any fevers, chills, vomiting, chest pain, or other complaints. Related Data Home Medications Medication Instructions Recorded Confirmed albuterol sulfate 90 mcg/actuation 2 puff inhalation QID PRN 04/24/19 04/14/22 aerosol inhaler Shortness Of Breath Or Wheezing montelukast 10 mg tablet 10 mg PO DAILY 04/24/19 04/14/22 (Singulair) atorvastatin 10 mg tablet 10 mg PO DAILY 05/08/21 04/14/22 cyclobenzaprine 10 mg tablet 10 mg PO HS 01/02/22 04/14/22 ipratropium 0.5 mg-albuterol 3 mg 3 ml inhalation Q4-6H PRN 04/14/22 04/14/22 (2.5 mg base)/3 mL nebulization Shortness Of Breath soln Allergies Allergy/AdvReac Type Severity Reaction Status Date / Time No Known Allergies Allergy Verified 02/08/23 16:08 Review of Systems Review of Systems: Pertinent positives and pertinent negatives per HPI. [facility] Past Medical History Medical History (Updated 02/08/23 @ 16:06 by Scarlet Agudelo APRN) Asthma Elevated cholesterol Muscular dystrophy Seasonal allergies Social History Social History Social History: Has some exposure to 2nd hand tobacco Smoking packs per day: 0.25 Smoking cigarettes per day: 5.0 Years smoked: 20 Smoking pack-years: 5.00 Smoking status: Former smoker Additional smoking assessment comments: quit one year ago Alcohol intake: never Substance use: never Living arrangements: with family Gender identity (if verbalized by the patient): Male Comments At the time of my signature, I reviewed and agree with the nursing past medical, surgical, social, and family history. There is no relevant family history pertinent to the patient complaint. Exam Narrative: GENERAL: This is a well-nourished, well-developed patient, in no apparent distress. HEAD: normocephalic, atraumatic. EYES: Sclera clear/white. Vision is grossly intact. EARS: External ears normal, auditory canals clear and without drainage, TMs normal without perforation. Hearing grossly intact. NOSE: External nose normal with no obvious nasal discharge, nares without redness, no rhinorrhea. THROAT: Mucous membranes moist, posterior pharynx clear. NECK: Neck supple, non-tender without lymphadenopathy, masses or thyromegaly. CARDIOVASCULAR: Regular rate and rhythm without murmurs, gallops, or rubs. RESPIRATORY: Clear to auscultation. Breath sounds equal bilaterally. No wheezes, rales, or rhonchi. GASTROINTESTINAL: Abdomen soft, non-tender, nondistended. Bowel sounds are active. No hepato-splenomegaly, or palpable masses. No guarding. SKIN: warm, intact with no suspicious lesions or rash, good texture and turgor. NEURO: awake, alert, and oriented to person, place and time. There were no obvious focal neurologic abnormalities. EXTREMITIES: No clubbing, cyanosis, or edema. No joint tenderness, effusion, or edema noted. BACK: Nontender without deformity or crepitus. No flank tenderness. Course Course Level of Care: Express Care Visit Vital Signs Vital signs: Vital Signs Temperature 98.0 F 02/08/23 15:53 Pulse Rate 99 02/08/23 15:53 Respiratory Rate 18 02/08/23 15:53 Blood Pressure 152/84 H 02/08/23 15:53 Pulse Oximetry 97 02/08/23 15:53 Oxygen Delivery Room Air 02/08/23 15:53 Temperature 98.0 F 02/08/23 15:53 Pulse Rate 99 02/08/23 15:53 Respiratory Rate 18 02/08/23 15:53 Blood Pressure 152/84 H 02/08/23 15:53 Pulse Oximetry 97 02/08/23 15:53 Oxygen Delivery Room Air 02/08/23
== END 2023-02-08 16:10 | disposition home or self-care (01) ==
PROVIDERS: Emergency Provider Nurse Practitioner Family
DX: J45.909 Unspecified asthma, uncomplicated (principal); Z87.891 Personal history of nicotine dependence; E78.00 Pure hypercholesterolemia, unspecified; G71.00 Muscular dystrophy, unspecified
CPT/HCPCS: 99213; G0463

== ENCOUNTER 2023-02-24 10:55 | Emergency (ER) | payer OTHER, SELFPAY ==
[2023-02-24 11:00] VITALS: BP 135/82; PULSE 125; RESP 20; TEMP 37.3; O2SAT 98
--- NOTE | 2023-02-24 12:08 | ED.GENADULT ---
HPI - General Adult General Chief complaint: Upper Respiratory Infection Stated complaint: Chest Pain, Cough, Asthma Problems Source: patient Mode of arrival: ambulatory Limitations: no limitations History of Present Illness HPI narrative: Patient presents for evaluation of sick symptoms. Symptom onset 3 days ago. He reports sinus congestion and nonproductive cough. He had some SOB earlier today but that resolved after using a nebulizer treatment. He has an underlying history of asthma. He still has an albuterol inhaler at home. He reports fever and chills. No nausea, vomiting or diarrhea. He tried taking mucinex without much improvement.. Denies sore throat or otalgia. His brother has some similar symptoms. Related Data Home Medications Medication Instructions Recorded Confirmed albuterol sulfate 90 mcg/actuation 2 puff inhalation QID PRN 04/24/19 04/14/22 aerosol inhaler Shortness Of Breath Or Wheezing atorvastatin 10 mg tablet 10 mg PO DAILY 05/08/21 04/14/22 cyclobenzaprine 10 mg tablet 10 mg PO HS 01/02/22 04/14/22 ipratropium 0.5 mg-albuterol 3 mg 3 ml inhalation Q4-6H PRN 04/14/22 04/14/22 (2.5 mg base)/3 mL nebulization Shortness Of Breath soln trazodone 50 mg tablet mg 02/24/23 Allergies Allergy/AdvReac Type Severity Reaction Status Date / Time No Known Allergies Allergy Verified 02/08/23 16:08 Review of Systems Review of Systems: CONSTITUTIONAL: Reports fever and chills. EYES: Denies visual changes, redness, or discharge. ENT: Reports sinus congestion. Denies significant nasal drainage, sore throat or otalgia. CARDIOVASCULAR: Denies chest pain, palpitations, or edema. RESPIRATORY: Reports cough. Reports recent shortness of breath, now resolved. GASTROINTESTINAL: Denies abdominal pain, nausea, vomiting, or diarrhea. GENITOURINARY: Denies dysuria or hematuria. SKIN: Denies rash or itching. MUSCULOSKELETAL: Denies back pain, joint pain, or myalgia. NEUROLOGIC: Denies headache, numbness, dizziness, or weakness. PSYCHIATRIC: Denies anxiety or depression. [facility] Past Medical History Medical History (Updated 02/24/23 @ 12:14 by Fredy Pulido, UNDERWRITING TECHNICIAN, ) Asthma Elevated cholesterol Muscular dystrophy Seasonal allergies Surgical History Surgical History No pertinent past surgical history Family History Family History Mother Family history non-contributory Social History Social History Social History: Has some exposure to 2nd hand tobacco Smoking packs per day: 0.25 Smoking cigarettes per day: 5.0 Years smoked: 20 Smoking pack-years: 5.00 Smoking status: Former smoker Additional smoking assessment comments: quit one year ago Alcohol intake: never Substance use: never Living arrangements: with family Gender identity (if verbalized by the patient): Male Exam Narrative: GENERAL: Well-appearing, well-nourished, and in no acute distress. HEAD: Normocephalic, atraumatic. EYES: PERRLA and EOMI. ENT: Nares clear, no rhinorrhea or epistaxis. Mucous membranes moist. Mild posterior pharyngeal erythema without exudate. Uvula is midline.. Bilateral TMs pearly machado nonbulging NECK: Supple. No adenopathy or masses. No carotid bruits or JVD CHEST: Cough present on exam. Clear to auscultation. No respiratory distress. No wheezes rales or rhonchi HEART: Regular rate and rhythm. No murmur heard. Normal peripheral pulses. ABDOMEN: Soft, nontender, nondistended, normal active bowel sounds. EXTREMITIES: Normal range of motion. No edema. SKIN: Warm, dry, no rash. NEURO: No focal deficits. Alert and oriented x3. PSYCH: Normal mood and affect. Course Course Emergency Course: This is a 42-year-old male who presented for evaluation of sick symptoms for last 3 days. Influenza posi
== END 2023-02-24 12:13 | disposition home or self-care (01) ==
PROVIDERS: Emergency Provider Nurse Practitioner
DX: J10.1 Influenza due to other identified influenza virus with other respiratory manifestations (principal); Z20.822 Contact with and (suspected) exposure to COVID-19; Z87.891 Personal history of nicotine dependence; G71.00 Muscular dystrophy, unspecified; J45.909 Unspecified asthma, uncomplicated; E78.00 Pure hypercholesterolemia, unspecified
CPT/HCPCS: 87081; 87426; 87804; 87880; 99213; C9803; G0463

== ENCOUNTER 2023-07-30 10:00 | Emergency (ER) | payer OTHER, SELFPAY ==
[2023-07-30 10:08] VITALS: BP 136/83; PULSE 92; RESP 20; TEMP 37; O2SAT 98
[2023-07-30 10:12] VITALS: BP 136/83; PULSE 92; RESP 20; TEMP 37; O2SAT 98
--- NOTE | 2023-07-30 10:14 | ED.URI ---
HPI - URI/Sore Throat General Chief Complaint: Upper Respiratory Infection Stated Complaint: Asthma/chest Congestion Source: patient Mode of arrival: ambulatory Limitations: no limitations History of Present Illness HPI Narrative: 42 y/o male with hx asthma presented for c/o cough, chest congestion and sinus congestion. Symptoms for over one week, states he felt better for a few days, but symptoms have been persistent for one week. Endorses wheezing, and has been using nebulizer and inhalers. Last neb tx 0700. Denies sob, n/v/d/f/c. Related Data Home Medications Medication Instructions Recorded Confirmed albuterol sulfate 90 mcg/actuation 2 puff inhalation QID PRN 04/24/19 04/14/22 aerosol inhaler Shortness Of Breath Or Wheezing atorvastatin 10 mg tablet 10 mg PO DAILY 05/08/21 04/14/22 ipratropium 0.5 mg-albuterol 3 mg 3 ml inhalation Q4-6H PRN 04/14/22 04/14/22 (2.5 mg base)/3 mL nebulization Shortness Of Breath soln trazodone 50 mg tablet mg 02/24/23 budesonide-formoterol HFA 160 inhalation 07/30/23 mcg-4.5 mcg/actuation aerosol inhaler (Symbicort) cyclobenzaprine 10 mg tablet mg 07/30/23 loratadine 10 mg tablet mg 07/30/23 tiotropium bromide 1.25 inhalation 07/30/23 mcg/actuation mist for inhalation (Spiriva Respimat) Allergies Allergy/AdvReac Type Severity Reaction Status Date / Time No Known Allergies Allergy Verified 02/08/23 16:08 Review of Systems Review of Systems: CONSTITUTIONAL: Denies body aches, fever, chills, or sweats. EYES: Denies visual changes, redness, or discharge. ENT: Denies rhinorrhea, congestion, sore throat, or otalgia. CARDIOVASCULAR: Denies chest pain, palpitations, or edema. RESPIRATORY: Reports cough, wheezing. GASTROINTESTINAL: Denies abdominal pain, nausea, vomiting, or diarrhea. GENITOURINARY: Denies dysuria or hematuria. SKIN: Denies rash, itching, or wounds. MUSCULOSKELETAL: Denies back pain, joint pain, or myalgia. NEUROLOGIC: Denies headache, numbness, tingling, or weakness. All systems reviewed & are unremarkable except as noted in HPI and below PMFSH Past Medical History Medical History Asthma Elevated cholesterol Muscular dystrophy Seasonal allergies Surgical History Surgical History No pertinent past surgical history Family History Family History Mother Family history non-contributory Social History Social History Social History: Has some exposure to 2nd hand tobacco Smoking packs per day: 0.25 Smoking cigarettes per day: 5.0 Years smoked: 20 Smoking pack-years: 5.00 Smoking status: Former smoker Additional smoking assessment comments: quit one year ago Alcohol intake: never Substance use: never Living arrangements: with family Gender identity (if verbalized by the patient): Male Comments At time of signature, I have reviewed and agree with nursing past medical, surgical, social and family history unless otherwise noted. Please see nursing chart for further information. There is no relevant family history pertinent to the presenting complaint Exam Narrative: GENERAL: Well-appearing, in no acute distress. EYES: EOMI. No redness or drainage. Conjunctivae normal. ENT: Mucous membranes pink and moist. No rhinorrhea. TMs normal bilaterally. Throat normal. Uvula midline. NECK: Normal AROM. Supple. CHEST: No respiratory distress, unlabored, regular rate. Exp Wheezing to all wilkinson. Speaks full sentences. No cough. HEART: Regular rate and rhythm. No murmur appreciated. ABDOMEN: Soft, nontender, nondistended, normal active bowel sounds. EXTREMITIES: Normal range of motion. No edema. SKIN: Warm, dry, no rash. Capillary refill normal. Normal skin turgor. NEURO: Alert and oriented x3. G
== END 2023-07-30 10:28 | disposition home or self-care (01) ==
PROVIDERS: Emergency Provider Nurse Practitioner Family
DX: J45.901 Unspecified asthma with (acute) exacerbation (principal); Z87.891 Personal history of nicotine dependence; J32.9 Chronic sinusitis, unspecified
CPT/HCPCS: 99213; G0463

== ENCOUNTER 2023-08-30 10:03 | Emergency (ER) | payer OTHER, SELFPAY ==
[2023-08-30 10:15] VITALS: BP 149/95; PULSE 97; RESP 18; TEMP 37.1; O2SAT 98
--- NOTE | 2023-08-30 10:59 | ED.ASTHMA ---
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 Symptoms for over one week. Took Augmentin and steroid one month ago, with improvement for a few weeks. Endorses wheezing, and has been using nebulizer and inhalers. Last neb tx 0700 today. Denies sob, n/v/d/f/c. Scheduled with pcp next week. Related Data Home Medications Medication Instructions Recorded Confirmed albuterol sulfate 90 mcg/actuation 2 puff inhalation QID PRN 04/24/19 04/14/22 aerosol inhaler Shortness Of Breath Or Wheezing atorvastatin 10 mg tablet 10 mg PO DAILY 05/08/21 04/14/22 ipratropium 0.5 mg-albuterol 3 mg 3 ml inhalation Q4-6H PRN 04/14/22 04/14/22 (2.5 mg base)/3 mL nebulization Shortness Of Breath soln trazodone 50 mg tablet mg 02/24/23 budesonide-formoterol HFA 160 inhalation 07/30/23 mcg-4.5 mcg/actuation aerosol inhaler (Symbicort) cyclobenzaprine 10 mg tablet mg 07/30/23 loratadine 10 mg tablet mg 07/30/23 tiotropium bromide 1.25 inhalation 07/30/23 mcg/actuation mist for inhalation (Spiriva Respimat) Allergies Allergy/AdvReac Type Severity Reaction Status Date / Time No Known Allergies Allergy Verified 02/08/23 16:08 Review of Systems Review of Systems: CONSTITUTIONAL: Denies body aches, fever, chills, or sweats. EYES: Denies visual changes, redness, or discharge. ENT: Denies rhinorrhea, congestion, sore throat, or otalgia. CARDIOVASCULAR: Denies chest pain, palpitations, or edema. RESPIRATORY: Reports cough, wheezing. GASTROINTESTINAL: Denies abdominal pain, nausea, vomiting, or diarrhea. SKIN: Denies rash, itching, or wounds. MUSCULOSKELETAL: Denies back pain, joint pain, or myalgia. NEUROLOGIC: Denies headache, numbness, tingling, or weakness. PSYCH: Denies depression or anxiety. All systems reviewed & are unremarkable except as noted in HPI and below PMFSH Past Medical History Medical History Asthma Elevated cholesterol Muscular dystrophy Seasonal allergies Surgical History Surgical History No pertinent past surgical history Family History Family History Mother Family history non-contributory Social History Social History Social History: Has some exposure to 2nd hand tobacco Smoking packs per day: 0.25 Smoking cigarettes per day: 5.0 Years smoked: 20 Smoking pack-years: 5.00 Smoking status: Former smoker Additional smoking assessment comments: quit one year ago Alcohol intake: never Substance use: never Living arrangements: with family Gender identity (if verbalized by the patient): Male Comments At time of signature, I have reviewed and agree with nursing past medical, surgical, social and family history unless otherwise noted. Please see nursing chart for further information. There is no relevant family history pertinent to the presenting complaint Exam Narrative: GENERAL: Well-appearing, in no acute distress. EYES: EOMI. No redness or drainage. Conjunctivae normal. ENT: Mucous membranes pink and moist. No rhinorrhea. TMs normal bilaterally. Throat normal. Uvula midline. NECK: Normal AROM. Supple. CHEST: No respiratory distress. Wheezing to all wilkinson. Speaks full sentences. No cough. HEART: Regular rate and rhythm. No murmur appreciated. ABDOMEN: Soft, nontender, nondistended, normal active bowel sounds. EXTREMITIES: Normal range of motion. No edema. SKIN: Warm, dry, no rash. Capillary refill normal. Normal skin turgor. NEURO: Alert and oriented x3. Gait steady. PSYCH: Normal affec
== END 2023-08-30 11:11 | disposition home or self-care (01) ==
PROVIDERS: Emergency Provider Nurse Practitioner Family
DX: J45.901 Unspecified asthma with (acute) exacerbation (principal); Z87.891 Personal history of nicotine dependence; E78.00 Pure hypercholesterolemia, unspecified; G71.00 Muscular dystrophy, unspecified
CPT/HCPCS: 99213; G0463

== ENCOUNTER 2023-12-17 16:26 | Emergency (ER) | payer OTHER, SELFPAY ==
[2023-12-17 16:47] VITALS: BP 130/89; PULSE 101; RESP 22; TEMP 37; O2SAT 98
--- NOTE | 2023-12-17 17:29 | ED.URI ---
HPI - URI/Sore Throat General Chief Complaint: Upper Respiratory Infection Stated Complaint: chest congestion/asthma Source: patient Mode of arrival: ambulatory Limitations: no limitations History of Present Illness HPI Narrative: 43-year-old male with a history of asthma and muscular dystrophy presented for complaint of cough , chest congestion, and wheezing for 2 weeks. has been using nebulizer with temporary improvement. last neb treatment about 1 hour prior to arrival. Denies Chest pain, palpitations, nausea, vomiting, diarrhea, fevers or chills. scheduled with [facility] in 2 days Related Data Home Medications Medication Instructions Recorded Confirmed albuterol sulfate 90 mcg/actuation 2 puff inhalation QID PRN 04/24/19 12/17/23 aerosol inhaler Shortness Of Breath Or Wheezing atorvastatin 10 mg tablet 10 mg PO DAILY 05/08/21 12/17/23 ipratropium 0.5 mg-albuterol 3 mg 3 ml inhalation Q4-6H PRN 04/14/22 12/17/23 (2.5 mg base)/3 mL nebulization Shortness Of Breath soln trazodone 50 mg tablet 50 mg PO DAILY 02/24/23 12/17/23 budesonide-formoterol HFA 160 See Rx Instructions .Route .COMPLEX 07/30/23 12/17/23 mcg-4.5 mcg/actuation aerosol inhaler (Symbicort) cyclobenzaprine 10 mg tablet See Rx Instructions .Route .COMPLEX 07/30/23 12/17/23 loratadine 10 mg tablet 10 mg PO DAILY 07/30/23 12/17/23 tiotropium bromide 1.25 See Rx Instructions .Route .COMPLEX 07/30/23 12/17/23 mcg/actuation mist for inhalation (Spiriva Respimat) Allergies Allergy/AdvReac Type Severity Reaction Status Date / Time No Known Allergies Allergy Verified 12/17/23 16:53 Review of Systems Review of Systems: CONSTITUTIONAL: Denies body aches, fever, chills, or sweats. EYES: Denies visual changes, redness, or discharge. ENT: Denies rhinorrhea, congestion, sore throat, or otalgia. CARDIOVASCULAR: Denies chest pain, palpitations, or edema. RESPIRATORY: Reports cough, sob, wheezing. GASTROINTESTINAL: Denies abdominal pain, nausea, vomiting, or diarrhea. NEUROLOGIC: Denies headache, numbness, tingling, or weakness. All systems reviewed & are unremarkable except as noted in HPI and below PMFSH Past Medical History Medical History Asthma Elevated cholesterol Muscular dystrophy Seasonal allergies Surgical History Surgical History No pertinent past surgical history Family History Family History Mother Family history non-contributory Social History Social History Social History: Has some exposure to 2nd hand tobacco Smoking packs per day: 0.25 Smoking cigarettes per day: 5.0 Years smoked: 20 Smoking pack-years: 5.00 Smoking status: Former smoker Additional smoking assessment comments: quit one year ago Alcohol intake: never Substance use: never Living arrangements: with family Gender identity (if verbalized by the patient): Male Comments At time of signature, I have reviewed and agree with nursing past medical, surgical, social and family history unless otherwise noted. Please see nursing chart for further information. There is no relevant family history pertinent to the presenting complaint Exam Narrative: GENERAL: Well-appearing, in no acute distress. EYES: EOMI. No redness or drainage. Conjunctivae normal. ENT: Mucous membranes pink and moist. No rhinorrhea. TMs normal bilaterally. Throat normal. Uvula midline. NECK: Normal AROM. Supple. CHEST: No respiratory distress. Wheezing to all wilkinson. speaks full sentences. No cough. HEART: Regular rate and rhythm. No murmur appreciated. ABDOMEN: Soft, nontender, nondistended, normal active bowel sounds. EXTREMITIES: Normal range of motion. No edema. SKIN: Warm, dry, no rash. Capillary refill normal. Normal skin
[2023-12-17] MEDS: IPRATROPIUM 0.5 MG/ALBUTEROL SULFATE 2.5 MG AMPUL.NEB 3 ML INHALATION (17:40)
[2023-12-17] MEDS: methylPREDNISolone SOD SUCC 125 MG VIAL IM (17:41)
[2023-12-17 18:15] VITALS: PULSE 96; RESP 18; O2SAT 98
== END 2023-12-17 18:15 | disposition home or self-care (01) ==
PROVIDERS: Emergency Provider Nurse Practitioner Family
DX: J45.901 Unspecified asthma with (acute) exacerbation (principal); Z87.891 Personal history of nicotine dependence; E78.00 Pure hypercholesterolemia, unspecified; G71.00 Muscular dystrophy, unspecified
CPT/HCPCS: 96372; 99213; G0463; J2919

== ENCOUNTER 2024-08-25 09:17 | Emergency (ER) | payer OTHER, SELFPAY ==
--- NOTE | ~2024-08-25 | XR_ITS ---
XR chest 2V 08/25/2024 10:27 Indication: Cough with wheezing and congestion Procedure: 2 view chest Comparison: Comparison to multiple prior studies sequentially, with oldest reviewed study dated 05/2018. Findings: Large hiatal hernia. Heart size normal. No focal air space disease, pulmonary edema, pleura l effusion or suspected pneumothorax. There is right basilar atelectasis. Impression: 1: Large hiatal hernia. 2: Right basilar atelectasis. Reviewed, dictated and finalized at location A. Impression: 1: Large hiatal hernia. 2: Right basilar atelectasis.
[2024-08-25 09:26] VITALS: BP 148/95; PULSE 88; RESP 20; TEMP 36.9; O2SAT 98
--- OUTSIDE RECORDS SUMMARY | 2024-08-25 09:34 | XMS_ITS | Referral Summary ---
Author Organization [facility] Address [address] [place] [address] Care Team Providers Care Associate Relations Specialist Name Role Phone Fredy Bowden MD Primary Care Provide r Ivana Archer NP Unavailable [phone] Americo Martinez MD Unavailable Norma Garcia MD PhD Unavailable [phone] Encounters Date Type Department Care Team Description 07/01/2024 11:10 AM CDT Lab [address] Metabolic myopathy 07/01/2024 10:00 AM CDT Office Visit [facility] [address] [place] [address] [address], [place] [phone] Mich Dooley MD Metabolic myopathy (Primary Dx); Numbness and tingling of both upper extremities 06/19/2024 2:00 PM CDT Office Visit [facility] at [address] [address] India Russell NP Moderate persistent asthma without complication (Primary Dx); Obesity (BMI 30-39.9) 06/08/2024 1:40 PM CDT - 06/08/2024 3:30 PM CDT Emergency [facility] Emergency Department [address] [place] [address] Chest congestion (Primary Dx) Discharge Disposition: Discharge to home or self care 06/06/2024 DI ED Outreach [facility] Accountable Care Organization [address] [place] [phone] Cassy Sigala MA 06/05/2024 DI ED Outreach [facility] Accountable Care Organization [address] [place] [address] Cassy Sigala MA 06/04/2024 11:28 AM CDT - 06/04/2024 12:46 PM CDT Emergency [facility] Emergency Department 1 [place] [address] Asthma with acute exacerbation, unspecified asthma severity, unspecified whether persistent (Primary Dx) Discharge Disposition: Discharge to home or self care 06/04/2024 10:00 AM CDT Office Visit [facility] Sleep [facility] at [address] [place] [address] Hawa Navarro MD Insomnia, unspecified type (Primary Dx); Hypersomnolence; Obesity, unspecified class, unspecified obesity type, unspecified whether serious comorbidity present; Snoring; Obstructive sleep apnea; Hypersomnia from Last 3 Months Allergies Active Allergy Reactions Criticality Noted Date Comments Milk Diarrhea Low 08/19/2018 Penicillins Diarrhea Low 09/15/2022 Medications ibuprofen (ADVIL,MOTRIN) 600 mg tablet Take 1 tablet (600 mg total) by mouth every 8 (eight) hours 01/01/20 18 Active multivit-minera ls/folic acid (CENTRUM ADULTS ORAL) Take 1 tablet by mouth daily Active MAGNESIUM CARBONATE ORAL Take 1 tablet by mouth daily 500mg Active albuterol 2.5 mg /3 mL (0.083 %) nebulizer solution Take 3 mL (2.5 mg total) by nebulization every 6 (six) hours as needed for wheezing 180 mL 11/05/19 24 Active fluticasone propionate (FLONASE) 50 mcg/actuation nasal spray Administer 2 sprays into each nostril 2 (two) times a day 16 g 3 12/19/19 24 Active budesonide-form oteroL (Symbicort) 160-4.5 mcg/actuation inhalerIndicati ons:Severe persistent asthma with (acute) exacerbation (HCC) Inhale 2 puffs 2 (two) times a day Rinse mouth with water after use. Do not swallow. 1 each 11 12/19/19 24 Active montelukast (SINGULAIR) 10 mg tablet TAKE 1 TABLET BY MOUTH DAILY 90 tablet 3 03/29/19 25 Active cyclobenzaprine (FLEXERIL) 10 mg tablet Take 1 tablet (10 mg total) by mouth 3 (three) times a day as needed for muscle spasms 60 tablet 2 04/18/19 25 Active albuterol HFA (PROVENTIL HFA,VENTOLIN HFA,PROAIR HFA) 90 mcg/actuation inhaler INHALE 2 PUFFS BY MOUTH EVERY 4 HOURS NEEDED FOR WHEEZING 18 g 5 05/13/19 25 Active Spiriva Respimat 1.25 mcg/actuation inhaler Inhale 2 puffs daily 4 g 11 05/22/19 25 Active loratadine (CLARITIN) 10 mg tabletIndicatio ns:Seasonal allergic rhinitis due to pollen TAKE 1 TABLET BY MOUTH EVERY DAY 100 tablet 1 08/14/19 25 Active loratadine (CLARITIN) 10 mg tabletIndicatio ns:Seasonal allergic rhinitis due to pollen Take 1 tablet (10 mg total) by mouth daily 90 tablet 3 01/02/20 23 2024 Discontinued Active Problems Problem Noted Date Diagnosed Date 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 was told to repeat in 5 years. No family hx of colon cancer. Will schedule colonoscopy Asthma 07/10/2022 Low back pain 07/10/2022 Scoliosis 07/10/2022 Hyperlipidemia 07/10/2022 Resolved Problems Problem Noted Date Diagnosed Date Resolved Date Rectal bleeding 08/04/2022 10/10/2023 Assessment & Plan (08/04/2022 1:31 PM CDT): Suspect from hemorrhoids, no fissures noted on rectal exam today. Has daily straining with BM, once a week would notice rectal pain and blood with wiping previous tried fiber gummies but did not tolerate Uses preparation H as needed Colonoscopy 2014 with benign polyps per patient No family hx of colon cancer or colitis Labs 07/10/2022 showed elevated alk-phos of 157 otherwise normal CMP Normal CBC from 09/2018 Plan Repeat CBC, obtain ESR and CRP Start metamucil Schedule colonoscopy to rule out other causes rectal bleeding such as colitis or large polyps Acute maxillary sinusitis 04/28/2022 Acute bronchitis 10/23/2018 07/10/2022 Asthma with acute exacerbation 10/23/2018 07/10/2022 Immunizations Immunization Administration Dates Next Due Influenza, Quadrivalent, Spl it, Intramuscular 01/12/2017,12/28/2014 Influenza, Trivalent, IM (MDV) 12/24/2012 Influenza, Unspecified 12/19/2023,2022(Deferred: Patient Refused),01/28/2023(Deferred: Patient Refused),10/24/2022(Deferred: Patient Refused),12/24/2021(Deferred: Patient Refused),12/24/2020(Deferred: Patient Refused) Pneumococcal Conjugate Pcv20 10/09/2022 Pneumococcal Polysaccharide PPV23 06/02/2014 Tdap 06/28/2016 Social History Tobacco Use Types Packs/Day Years Used Date Smoking Tobacco: Former Cigarettes 2 23.4 S tarted: 2001 Smokeless Tobacco: Never Tobacco Cessation:Counseling Given: Not Answered Alcohol Use Standard Drinks/Week Comments No 0 (1 standard drink = 0.6 oz pur e alcohol) PHQ-2 Answer Date Recorded PHQ-2 Total Score (If total score is 3 or more points, staff should administer the PHQ-9) 2 10/10/2023 PHQ-9 Answer Date Recorded PHQ-9 Total Score 5 10/10/2023 Personal Safety Answer Date Recorded Have you ever been in or are you currently in a harmful physical or emotional relationship or is someone making you feel afraid or unsafe? 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 Gender Identity Not on file Sexual Orientation Not on file Last Filed Vital Signs Vital Sign Reading Time Taken Comments Blood Pressure 134/82 07/01/2024 9:44 AM CDT Pulse 90 07/01/2024 9:44 AM CDT Temperature 36.6 C (97.9 F) 06/08/2024 1:38 PM CDT Respiratory Rate 16 06/08/2024 1:38 PM CDT Oxygen Saturation 98% 07/01/2024 9:44 AM CDT Inhaled Oxygen Concentration - - Weight 99.1 kg (218 lb 6.4 oz) 07/01/2024 9:44 A M CDT Height 177.8 cm (5' 10) 07/01/2024 9:44 AM CDT Body Mass Index 31.34 07/01/2024 9:44 AM CDT Plan of Treatment Not on file Procedures Procedure Name Priority Date/Time Associated Diagnosis Comments ALDOLASE Routine 07/01/2024 11:08 AM CDT Metabolic myopathy CREATINE KINASE (CK), TOTAL Routine 07/01/2024 11:08 AM CDT Metabolic myopathy INFLUENZA A/B, RSV, AND COVID-19 PCR STAT 06/08/2024 2:27 PM CDT XR CHEST 1 VIEW ED 06/08/2024 2:09 PM CDT XR CHEST PA LATERAL 2 VIEWS ED 06/04/2024 11:57 AM CDT HEPATITIS C ANTIBODY Routine 10/10/2023 3:00 PM CDT Annual physical exam COLONOSCOPY 08/07/2022 7:30 AM CDT from Last 3 Months or Most Recently Relevant to Health Maintenance Results * Aldolase (07/01/2024 11:08 AM CDT) Aldolase 5.2 <7.7 Units/L [facility] Comment: ADDITIONAL INFORMATION This test has been modified from the intermediate accountant's instructions. Its performance characteristics were determined by [facility] in a manner consistent with CLIA requirements. This test has not been cleared or approved by the U.S. Food and Drug Administration. Test Performed by: [facility] [place] [address] Fisher Pot: Agustin Bolanos Ph.D.; CLIA# [id number] Blood 07/01/2024 11:0 8 AM CDT 07/01/2024 1:32 PM CDT Mich Dooley MD LAB BLOOD ORDERABLES Fi nal Result [facility] ([place]) [address] [place] [address] [facility] * Creatine kinase (CK), total (07/01/2024 11:08 AM CDT) CK 60 40 - 300 Units/L Blood 07/01/2024 11:0 8 AM CDT 07/01/2024 1:32 PM CDT Mich Dooley MD LAB BLOOD ORDERABLES nal Result Performing Organization Address City/[facility]/ZIP Co de Phone Number [facility] ([place]) [address] [place] [phone] * Influenza A/B, RSV, and COVID-19 PCR Nasopharyngeal (06/08/2024 2:27 PM CDT) COVID-19 RNA Negative Negative Influenza A RNA Negative Negative [facility] ([place]) Influenza B RNA Negative Negative [facility] RSV RNA Negative Negative [facility] ([place]) Comment: Interpretive data: Testing performed by [facility]. This test is performed using the [employer] Xpert Xpress CoV-2/Flu/RSV plus assay. This is a multiplex, real- time reverse transcriptase PCR assay intended for the qualitative detection of nucleic acid from SARS-CoV-2, influenza A, influenza B, and respiratory syncytial virus. This assay has been cleared by the [place] Food and Drug administration. The performance characteristics have been verified by the [facility]. Results must be considered in the clinical context, and a negative result does not rule out infection. Interpretive Data last revised 2023 Nasopharyngeal 06/08/2024 2: 27 PM CDT 06/08/2024 2:29 PM CDT Narrative [facility] - 06/08/2024 3:11 PM CDT Is the Patient experiencing symptoms consistent with COVID?->Yes us Deena K[facility] LAB MICROBIOLOGY - GENERAL ORDE [facility] Final Result [facility] ([place]) 1 [facility] Department [place] [address] * XR Chest 1 Vw Portable (06/08/2024 2:09 PM CDT) Anatomical Region Laterality Modality Body, Chest N/A Computed Radiogr aphy 06/08/2024 2:16 PM CDT Narrative 06/08/2024 2:18 PM CDT EXAM DESCRIPTION: XR CHEST 1 VIEW REASON FOR STUDY: cough Pt to the ED with c/o congestion and asthma. Pt stated that he was here on for the same and not feeling any better. TECHNIQUE: 1 radiographic view(s) of the chest. COMPARISON: 06/04/2024 FINDINGS: LUNGS: No focal opacity, pleural effusion, or pneumothorax. HEART/MEDIASTINUM: Stable contours. Normal heart size. Large hiatal hernia. LINES/TUBES: None. BONES: No acute osseous abnormality. IMPRESSION: No acute pulmonary process. Large hiatal hernia. THIS IS AN ELECTRONICALLY VERIFIED FINAL REPORT 06/08/2024 2:18 PM - Electronically signed by Kevan Purdy M.D. MM: MM Report ID: [id number] Reading Location: [id number] Procedure Note Kevan Purdy MD - 06/08/2024 EXAM DESCRIPTION: XR CHEST 1 VIEW REASON FOR STUDY: cough Pt to the ED with c/o congestion and asthma. Pt stated that he was here on for the same and not feeling any better. TECHNIQUE: 1 radiographic view(s) of the chest. COMPARISON: 06/04/2024 FINDINGS: LUNGS: No focal opacity, pleural effusion, or pneumothorax. HEART/MEDIASTINUM: Stable contours. Normal heart size. Large hiatalhernia. LINES/TUBES: None. BONES: No acute osseous abnormality. IMPRESSION: No acute pulmonary process. Large hiatal hernia. THIS IS AN ELECTRONICALLY VERIFIED FINAL REPORT 06/08/2024 2:18 PM - Electronically signed by Kevan Purdy M.D. MM: MM Report ID: [id number] Reading Location: [place] [address] Deena K[facility]TZ IMG XR PROCEDURES Final Result * XR Chest Pa Lateral 2 Vw (06/04/2024 11:57 AM CDT) Anatomical Region Laterality Modality Body, Chest N/A Computed Radiogr aphy 06/04/2024 12:2 5 PM CDT Narrative 06/04/2024 12:27 PM CDT EXAM DESCRIPTION: XR CHEST PA LATERAL 2 VIEWS REASON FOR STUDY: Cough, wheezing, and shortness of breath for 1.5-2 weeks. TECHNIQUE: Frontal and lateral radiographic view(s) of the chest. COMPARISON: Chest radiograph 12/19/2023; relevant portions of CT abdomen pelvis with contrast 04/21/2022 FINDINGS: LUNGS: Redemonstration of right basilar compressive atelectasis adjoining large hiatal hernia. No new focal consolidation no pleural effusion. No pneumothorax. HEART/MEDIASTINUM: Stable cardiomediastinal silhouette, noting redemonstration of large hiatal hernia better evaluated on prior CT imaging. LINES/TUBES: None. BONES: No acute osseous abnormality. IMPRESSION: No acute cardiopulmonary process with chronic findings as above. THIS IS AN ELECTRONICALLY VERIFIED FINAL REPORT 06/04/2024 12:27 PM - Electronically signed by Milad KAY: ELIZA Report ID: [id number] Reading Location: [id number] Procedure Note Milad Luu MD - 06/04/2024 EXAM DESCRIPTION: XR CHEST PA LATERAL 2 VIEWS REASON FOR STUDY: Cough, wheezing, and shortness of breath for 1.5-2weeks. TECHNIQUE: Frontal and lateral radiographic view(s) of the chest. COMPARISON: Chest radiograph 12/19/2023; relevant portions of CT abdomen pelvis with contrast 04/21/2022 FINDINGS: LUNGS: Redemonstration of right basilar compressive atelectasis adjoining large hiatal hernia. No new focal consolidation no pleural effusion. No pneumothorax. HEART/MEDIASTINUM: Stable cardiomediastinal silhouette, noting redemonstration of large hiatal hernia better evaluated on prior CTimaging. LINES/TUBES: None. BONES: No acute osseous abnormality. IMPRESSION: No acute cardiopulmonary process with chronic findings as above. THIS IS AN ELECTRONICALLY VERIFIED FINAL REPORT 06/04/2024 12:27 PM - Electronically signed by Milad Luu M.D. ELIZA: ELIZA Report ID: [id number] Reading Location: [place] [address] Chance [facility] IMG XR PROCEDURES Final Resu lt * Hepatitis C antibody Blood (10/10/2023 3:00 PM CDT) Hep C Ab Nonreactive Nonreactive Comment: Interpretive Data Nonreactive: Antibodies to HCV not detected. Does NOT exclude the possibility of recent exposure to HCV. Equivocal: Equivocal for HCV antibodies. Supplemental molecular testing will be automatically performed to determine infection status in accordance with current CDC screening recommendations. Reactive: Positive for HCV antibodies. This may represent current or past HCV infection. Supplemental molecular testing will be automatically performed to determine current infection status in accordance with current CDC screening recommendations. Interpretive data was last revised on 2019. Blood 10/10/2023 3:00 PM CDT 10/10/2023 5:16 PM CDT Fredy Bowden MD LAB MICROBIOLOGY - NERAL ORDERABLES Final Result [facility] [address] [facility] [place] [address] * COLONOSCOPY (08/07/2022 7:30 AM CDT) Anatomical Region Laterality Modality Other Narrative Procedure Note Americo Martinez MD - 08/07/2022 7:30 AM CDT [facility] Patient Name: Reji Cash Procedure Date: 08/07/2022 7:30 AM Date of : 1980 Admit Type: Outpatient Age: 41 Gender: Male Attending MD: Americo Martinez M.D. Room: [facility] ENDOSCOPY ROOM 3 Note Status: Finalized Patient Profile: This is a 41 year old male h/o asthma, HLD,scoliosis here for colonoscopy for evaluation of rectalbleeding and iron deficiency without anemia. [id number] with some benign polyps per patient. was told to repeat in 5 years. No family hx of colon cancer. Procedure: Colonoscopy Indications: Rectal bleeding, Iron deficiency anemia Referring MD: Fredy Bowden M.D. Providers: Americo Martinez M.D. Impression: - Hemorrhoids found on perianal exam. - Erythematous mucosa in the rectum. Biopsied. - External and internal hemorrhoids likely cause of rectal bleeding Recommendation: - Patient has a contact number available for emergencies. The signs and symptoms of potential delayed complications were discussed with thepatient. Return to normal activities tomorrow. Written discharge instructions were provided to thepatient. - Discharge patient to home (with escort). - High fiber diet. - Continue present medications. - Start metamucil - Use preparation H cream or suppository as neededfor hemorroids - Await pathology results. - Repeat colonoscopy for surveillance based on pathology results, if biopsies benign then repeatin 10 years for screening. - Return to GI clinic as previously scheduled. Medicines: Monitored Anesthesia Care Complications: No immediate complications. Estimated Blood Loss: Estimated blood loss was minimal. Procedure: Pre-Anesthesia Assessment: - Prior to the procedure, a History and Physicalwas performed, and patient medications and allergieswere reviewed. The patient is competent. The risks and benefits of the procedure and the sedation optionsand risks were discussed with the patient. Allquestions were answered and informed consent was obtained. Patient identification and proposed procedure were verified by the physician, the electric lineman and the set up mold technician in the endoscopy suite. Mental Status Examination: normal. Prophylactic Antibiotics: The patient does not require prophylactic antibiotics. Prior Anticoagulants: The patient has taken no anticoagulant or antiplatelet agents. ASA Grade Assessment: III - A patient with severe systemic disease. After reviewing the risks and benefits,the patient was deemed in satisfactory condition to undergo the procedure. The anesthesia plan was touse monitored anesthesia care (MAC). Immediately priorto administration of medications, the patient was re-assessed for adequacy to receive sedatives. The heart rate, respiratory rate, oxygen saturations, blood pressure, adequacy of pulmonary ventilation,and response to care were monitored throughout the procedure. The physical status of the patient was re-assessed after the procedure. The benefits, risks and alternatives of theprocedure and sedation were discussed and informed consentwas obtained. All questions were answered. Please referto the signed informed consent document in the medical record. The bowel preparation used was Miralax and bisacodyl tablets via split dose instruction. The scope was passed under direct vision. TheColonoscope [id number] was introduced through the anus and advanced to the the cecum, identified by appendiceal orifice and ileocecal valve. The colonoscopy was performed without difficulty. The patient tolerated the procedure well. The qualityof the bowel preparation was excellent. Bowel prep was administered using a split dose. Findings: Hemorrhoids were found on perianal exam. An area of mildly erythematous mucosa was found in the rectum. Thiswas biopsied with a cold forceps for histology. External and internal hemorrhoids were found during retroflexion. Americo Martinez M.D. 08/07/2022 8:46:01 AM Number of Addenda: 0 Note Initiated On: 08/07/2022 7:30 AM Procedure Code(s): --- Professional --- 61761, Colonoscopy, flexible; with biopsy, single or multiple --- Technical --- 02629, Colonoscopy, flexible; with biopsy, single or multiple Diagnosis Code(s): --- Professional --- K64.8, Other hemorrhoids K62.89, Other specified diseases of anus and rectum K62.5, Hemorrhage of anus and rectum D50.9, Iron deficiency anemia, unspecified --- Technical --- K64.8, Other hemorrhoids K62.89, Other specified diseases of anus and rectum K62.5, Hemorrhage of anus and rectum D50.9, Iron deficiency anemia, unspecified CPT copyright 2020 [employer]. All rights reserved. The codes documented in this report are preliminary and upon corporate legal secretary reviewmay be revised to meet current compliance requirements. Recognized by the [employer] for promoting quality in endoscopy Americo Martinez MD ENDOSCOPY PROCEDURES Final Resul t from Last 3 Months or Most Recently Relevant to Health Maintenance Insurance [facility] [employer] [facility] [place] [facility] Advance Directives For more information, please contact: [phone] * Full Code (Latest Code Status on File) Date Activated Date Inactivated Comments 08/07/2022 7:31 AM 08/07/2022 1:39 PM * Full Code Date Activated Date Inactivated Comments 08/07/2022 7:31 AM 08/07/2022 7:31 AM Care Teams Associate Relations Specialist Relationship Specialty [place] [address] [address] [address] [address] PCP - General Family Medicine 07/10/22 Ivana Archer, [employer] [address] [place] [address] Nurse Practitioner Pulmonary Disease 07/10/22 Americo Martinez MD [address] [place] [address] [address] [place] [address] Consulting Physician Gastroenterology 10/09/22 Norma Garcia MD PhD [address] [place] [address] [address] [place] [address] Consulting Physician Allergy and Immunology 10/09/22
--- OUTSIDE RECORDS SUMMARY | 2024-08-25 09:34 | XMS_ITS | Encounter Summary ---
Author Organization [facility] Address 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
--- OUTSIDE RECORDS SUMMARY | 2024-08-25 09:34 | XMS_ITS | Clinical Summary ---
Author Organization [facility] Address [address] [place] [address] Care Team Providers Care Carbide Operator Name Role Phone Fredy Bowden MD Primary Care Provide r Ivana Archer NP Unavailable [phone] Americo Martinez MD Unavailable Norma Garcia MD PhD Unavailable [phone] Allergies Active Allergy Reactions Criticality Noted Date [...] hours as needed for wheezing 180 mL 11 11/05/19 24 Active fluticasone propionate (FLONASE) 50 [...] 07/10/2022 Asthma with acute exacerbation 10/23/2018 07/10/2022 Encounters Date Type Department Care Team Description 07/01/2024 11:10 AM CDT Lab [address] Metabolic myopathy 07/01/2024 10:00 AM CDT Office Visit [facility] [address] [place] [address] [address] [address] Mich Dooley MD Metabolic myopathy (Primary Dx); Numbness and tingling of both upper extremities 06/19/2024 2:00 PM CDT Office Visit [facility] at [address] [address] India Russell NP Moderate persistent asthma without complication (Primary Dx); Obesity (BMI 30-39.9) 06/08/2024 1:40 PM CDT - 06/08/2024 3:30 PM CDT Emergency [facility] Emergency Department [address] [place] [address] Chest congestion (Primary Dx) Discharge Disposition: Discharge to home or self care 06/06/2024 DI ED Outreach [facility] Accountable Care Organization [address] [place] [address] Cassy Sigala MA 06/05/2024 DI ED Outreach [facility] Accountable Care Organization [address] [place] [address] Cassy Sigala MA 06/04/2024 11:28 AM CDT - 06/04/2024 12:46 PM CDT Emergency [facility] Emergency Department [address] [place] [address] Asthma with acute exacerbation, unspecified asthma severity, unspecified whether persistent (Primary Dx) Discharge Disposition: Discharge to home or self care 06/04/2024 10:00 AM CDT Office Visit [facility] [place] [address] [place] [address] Hawa Navarro MD Insomnia, unspecified type (Primary Dx); Hypersomnolence; Obesity, unspecified class, unspecified obesity type, unspecified whether serious comorbidity present; Snoring; Obstructive sleep apnea; Hypersomnia from Last 3 Months Immunizations Immunization Administration Dates Next Due Influenza, Quadrivalent, Spl it, Intramuscular 01/12/2017,12/28/2014 Influenza, Trivalent, IM (MDV) 12/24/2012 Influenza, Unspecified 12/19/2023,2022(Deferred: Patient Refused),01/28/2023(Deferred: Patient Refused),10/24/2022(Deferred: Patient Refused),12/24/2021(Deferred: Patient Refused),12/24/2020(Deferred: Patient Refused) Pneumococcal Conjugate Pcv20 10/09/2022 Pneumococcal Polysaccharide PPV23 06/02/2014 Tdap 06/28/2016 Surgical History Surgery Date Site/Laterality Comments COLONOSCOPY 03/26/2014 - 03/25/2015 COLONOSCOPY 08/07/2022 Medical History Medical History Date Comments Asthma Neuromuscular disorder (HCC) Acute bronchitis 10/23/2018 Asthma with acute exacerbation 10/23/2018 Acute maxillary sinusitis 04/28/2022 Sleep apnea Rectal bleeding 08/04/2022 Family History Medical History Relation Name Comments Asthma Father reji agustin sr Hyperlipidemia Other Hypertension Other Relation Name Status Comments Father reji agustin sr Other Social History Tobacco Use Types Packs/Day Years Used Date Smoking Tobacco: Former Cigarettes 2 23.4 S tarted: 2002 Smokeless Tobacco: Never Tobacco Cessation:Counseling Given: Not [...] on file Legal 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 Gender Identity Not on file Sexual Orientation Not on file Obstetrics History Last Filed Vital Signs Vital Sign Reading [...] 07/01/2024 9:44 AM CDT Plan of Treatment Health Maintenance Due Date Last Done Comments Depression Screening 10/09/2024 10/10/2023, 10/10/2023, 07/10/2022 Regular Well Visit/Exam 18-64 10/09/2024 10/10/2023, 10/09/2022 DTaP/Tdap/Td Vaccine (2 - Td or Tdap) 06/28/2026 06/28/2016 Colon Cancer Screening-Colonoscopy 08/07/2032 08/07/2022 Pneumococcal vaccine <65 Completed 10/09/2022, 05/24 Hepatitis B Screening Completed 10/10/2023 Hepatitis C Screening Completed 10/10/2023 Influenza Vaccine Completed 12/19/2023, , 12/28/2014, Additional history exists HPV Vaccines Aged Out No longer eligi ble based on patient's age to complete this topic Procedures Procedure Name Priority Date/Time Associated Diagnosis [...] 11:08 AM CDT) Aldolase 5.2 <7.7 Units/L [facility] Comment: ADDITIONAL INFORMATION This test has been modified from the electrical electronics engineers's instructions. Its performance characteristics were determined by [facility] in a manner consistent with CLIA requirements. This test has not been cleared or approved by the U.S. Food and Drug Administration. Test Performed by: [facility] [place] [address] Refinery Operator Assistant: Agustin Bolanos Ph.D.; CLIA# [id number] Blood 07/01/2024 11:0 8 AM CDT 07/01/2024 1:32 PM CDT us Mich Dooley MD LAB BLOOD ORDERABLES Fi nal Result [facility] [place]) [address] Department [place] [address] [facility] * Creatine kinase (CK), total (07/01/2024 11:08 AM CDT) CK 60 40 - 300 Units/L Blood 07/01/2024 11:0 8 AM CDT 07/01/2024 1:32 PM CDT Mihc Dooley MD LAB BLOOD ORDERABLES Fi nal Result [facility] COUNT INCLUDES THE [facility] ([place]) [address] [place] [address] Department [place] [address] * Influenza A/B, RSV, and COVID-19 PCR Nasopharyngeal (06/08/2024 2:27 PM CDT) Pathologist [facility] COVID-19 RNA Negative Negative Influenza A RNA Negative Negative [facility] COUNT INCLUDES THE [facility] ([place]) Influenza B RNA Negative Negative [facility] COUNT INCLUDES THE [facility] ([place]) RSV RNA [facility] Negative [facility] ([place] Comment: Interpretive data: Testing performed by [facility]. This test is performed using the [employer] Xpert Xpress CoV-2/Flu/RSV plus assay. This is a multiplex, real- time reverse transcriptase PCR assay intended for the qualitative detection of nucleic acid from SARS-CoV-2, influenza A, influenza B, and respiratory syncytial virus. This assay has been cleared by the [place] Food and Drug administration. The performance characteristics have been verified by the [facility]. Results must be considered in the clinical context, and a negative result does not rule out infection. Interpretive Data last revised 2023 Nasopharyngeal 06/08/2024 2: 27 PM CDT 06/08/2024 2:29 PM CDT Narrative [facility] ([place] - 06/08/2024 3:11 PM CDT Is the Patient experiencing symptoms consistent with COVID?->Yes us Deena [facility] LAB MICROBIOLOGY - GENERAL ORDRoxana CASTRO Final Result [facility] ([place]) [address] Department [place] [address] * XR Chest 1 Vw Portable (06/08/2024 [...] Kevan Purdy M.D. MM: MM Report ID: [id number] Reading Location: [id number] Procedure Note Kevan Purdy MD - 06/08/2024 [...] Kevan Purdy M.D. MM: MM Report ID: [id number] Reading Location: [id number] Deena Kaylan KURTZ IMG XR PROCEDURES Final Result * [...] 06/04/2024 12:27 PM - Electronically signed by Mliad Luu M.D. ELIZA: ELIZA Report ID: [id number] Reading Location: [id number] Procedure Note Milad Luu MD - 06/04/2024 [...] Milad Luu M.D. ELIZA: ELIZA Report ID: [id number] Reading Location: [id number] Chance K[facility] IMG XR PROCEDURES Final Resu [...] CDT Fredy Bowden MD LAB MICROBIOLOGY - [facility] ORDERABLES Final Result [facility] [address] Department [place] [address] * COLONOSCOPY (08/07/2022 7:30 AM CDT) Anatomical Region Laterality Modality Other Narrative Procedure Note Americo Martinez MD - 08/07/2022 7:30 AM CDT [facility] Patient Name: Reji Cash Procedure Date: 08/07/2022 7:30 AM Date of : 1980 Admit Type: Outpatient Age: 41 Gender: Male Attending MD: Americo Martinez M.D. Room: COUNT INCLUDES THE [facility] ENDOSCOPY ROOM 3 Note Status: Finalized Patient Profile: This is a 41 year old male h/o asthma, HLD,scoliosis here for colonoscopy for evaluation of rectalbleeding and iron deficiency without anemia. [id number] with some benign polyps per patient. was [...] procedure were verified by the physician, the contribution solicitor and the nanotechnician in the endoscopy suite. Mental Status Examination: [...] scope was passed under direct vision. TheColonoscope [id number] was introduced through the anus and advanced [...] 7:30 AM Procedure Code(s): --- Professional --- 32824, Colonoscopy, flexible; with biopsy, single or multiple --- Technical --- 31458, Colonoscopy, flexible; with biopsy, single or multiple Diagnosis Code(s): --- Professional --- K64.8, Other hemorrhoids K62.89, Other specified diseases of anus and rectum K62.5, Hemorrhage of anus and rectum D50.9, Iron deficiency anemia, unspecified --- Technical --- K64.8, Other hemorrhoids K62.89, Other specified diseases of anus and rectum K62.5, Hemorrhage of anus and rectum D50.9, Iron deficiency anemia, unspecified CPT copyright 2020 [employer]. All rights reserved. The codes documented in this report are preliminary and upon senior manager creative services reviewmay be revised to meet current compliance requirements. Recognized by the [employer] for promoting quality in endoscopy Americo Martinez MD ENDOSCOPY PROCEDURES Final Resul t from Last 3 Months or Most Recently Relevant to Health Maintenance Insurance [facility] [employer] [employer] [place] [facility] Advance Directives For more information, please contact: [phone] * Full Code (Latest Code Status on File) Date Activated Date Inactivated Comments 08/07/2022 7:31 AM 08/07/2022 1:39 PM * Full Code Date Activated Date Inactivated Comments 08/07/2022 7:31 AM 08/07/2022 7:31 AM Care Teams Carbide Operator Relationship Specialty [place] [address] [address] [facility] [address] [place] [address] PCP - General Family Medicine 07/10/22 Ivana Archer NP [address] [place] [address] Nurse Practitioner Pulmonary Disease 07/10/22 Americo Martinez MD [address] [place] [address] [address] [place] [address] Consulting Physician Gastroenterology 10/09/22 Norma Garcia MD PhD [address] [place] [address] [address] [place] [address] Consulting Physician Allergy and Immunology 10/09/22
--- OUTSIDE RECORDS SUMMARY | 2024-08-25 09:34 | XMS_ITS | Clinical Summary ---
Author Organization [facility] Address [address] [place] [address] Phone Care Team Providers Care Bead Supervisor Name Role Phone Eleazar Escamilla MD Primary Care Provider [phone] Allergies No known active allergies Medications Montelukast Sodium (SINGULAIR PO) Take by mouth. Active ALBUTEROL IN take by inhalation. Active TRAZODONE HCL PO Take by mouth. Active Budesonide-Form oterol Fumarate (SYMBICORT IN) take by inhalation. Active traMADol (ULTRAM) 50 MG Tablet Take 1 Tab by mouth every 6 hours as needed for Pain. 20 Tab 06/11/2017 Active ipratropium (ATROVENT) 0.06 % Solution 2 Sprays by Nasal route 4 times daily. 1 Bottle 06/11/2017 Active FLUTICASONE PROPIONATE, NASAL, NA by Nasal route. Active traMADol (ULTRAM) 50 MG Tablet Take 1 Tab by mouth every 6 hours as needed for Moderate or more severe pain. 15 Tab 12/16/2017 Active ibuprofen (MOTRIN) 600 MG Tablet Take 1 Tab by mouth every 8 hours. 60 Tab 12/31/2017 Active traMADol (ULTRAM) 50 MG Tablet Take 1 Tab by mouth every 6 hours as needed for Moderate or more severe pain. 20 Tab 01/01/2018 Active predniSONE (DELTASONE) 20 MG Tablet Use as directed. 15 Tab 04/27/2018 Active Meloxicam (MOBIC) 15 MG Tablet Take 1 Tab by mouth daily as needed for Pain. 30 Tab 04/27/2018 Active Active Problems No known active problems Social History Tobacco Use Types Packs/Day Years Used Date Smoking Tobacco: Every Day Cigarettes Smokeless Tobacco: Never Alcohol Use Standard Drinks/Week Comments No 0 (1 standard drink = 0.6 oz pur e alcohol) Sex and Gender Information Value Date Recorded Sex Assigned at Not on file Legal Sex Male 10:39 PM CDT Gender Identity Not on file Sexual Orientation Not on file Last Filed Vital Signs Vital Sign Reading Time Taken Comments Blood Pressure 133/79 04/27/2018 9:27 AM DIRECTOR COMMUNICATIONS Pulse 79 04/27/2018 10:14 AM DIRECTOR COMMUNICATIONS Temperature 36.6 C (97.8 F) 04/27/2018 9:27 AM DIRECTOR COMMUNICATIONS Respiratory Rate 18 04/27/2018 10:14 AM DIRECTOR COMMUNICATIONS Oxygen Saturation 98% 04/27/2018 10:14 AM DIRECTOR COMMUNICATIONS Inhaled Oxygen Concentration - - Weight 81.6 kg (180 lb) 04/27/2018 9:27 AM DIRECTOR COMMUNICATIONS Height 177.8 cm (5' 10) 04/27/2018 9:27 AM DIRECTOR COMMUNICATIONS Body Mass Index 25.83 04/27/2018 9:27 AM DIRECTOR COMMUNICATIONS Plan of Treatment Health Maintenance Due Date Last Done Comments Hepatitis C Virus (HCV) Screening 1980 Hepatitis B Immunization (1 of 3 - 19+ 3-dose series) 1997 Colonoscopy 11/09/2023 Colorectal Cancer Screening 11/09/2023 Influenza Immunization (#1) 11/25/202312/25, 12/28/2014 SARS-COV-2 Immunization ( season) 2023 Respiratory Syncytial Virus (RSV) Immunization (Adult) (1 - 1-dose 75+ series) 2053 Pneumococcal Immunization Combined Aged Out 06/02/2014 No longer eligible based on patient's age to complete this topic DTaP/Tdap/Td Immunization Discontinued 06/28/2016 TdaP Immunization Completed 06/28/2016 Meningococcal Immunization (ACWY) Aged Out No longer eligible based on patient's age to complete this topic Rotavirus Immunization Aged Out No lo nger eligible based on patient's age to complete this topic Insurance MEDICAID [facility] Care Teams Bead Supervisor Relationship Specialty Start Date End Date Eleazar Escamilla MD [address] [place] [address] PCP - General Internal Medicine 06/11/17
--- OUTSIDE RECORDS SUMMARY | 2024-08-25 09:34 | XMS_ITS | Encounter Summary ---
Author Organization [facility] Address 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
--- OUTSIDE RECORDS SUMMARY | 2024-08-25 09:34 | XMS_ITS | Encounter Summary ---
Author Organization [facility] Address [address] [place] [address] Care Team Providers Care Warehouse Forklift Operator Name Role Phone Unavailable Primary Care Provider Unavailabl e Encounter Details Date Type Department Care Team (Late st Contact Info) Description 07/03/2003 Outpatient Historical [facility] Primary Care - [facility] [address] [place] [address] [address] [place] [address] Devyn Bernal Social History Tobacco Use Types Packs/Day Years Used Date Smoking Tobacco: Never Assessed Sex and Gender Information Value Date Recorded Sex Assigned at Not on file Legal Sex Male 4:15 AM PUMP ROOM OPERATOR Gender Identity Not on file Sexual Orientation Not on file documented as of this encounter Plan of Treatment Not on file documented as of this encounter Visit Diagnoses Not on filedocumented in this encounter
--- OUTSIDE RECORDS SUMMARY | 2024-08-25 09:34 | XMS_ITS | Clinical Summary ---
Author Organization [facility] Address [address] Rojo: Epic Prelude ADT MARTIN [place]OPEZ TATI [address] Care Team Providers Care C.O.D. 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
--- OUTSIDE RECORDS SUMMARY | 2024-08-25 09:34 | XMS_ITS | Encounter Summary ---
Author Organization [facility] Address [address] [place] [address] Care Team Providers Care Auto Battery Builder Name Role Phone Unavailable Primary Care Provider Unavailabl e Encounter Details Date Type Department Care Team (Late st Contact Info) Description 07/24/2002 Outpatient Historical [facility] Primary Care - [facility] [address] [place] [address] [address] [place] [address] Devyn Bernal Social History Tobacco Use Types Packs/Day Years Used Date Smoking Tobacco: Never Assessed Sex and Gender Information Value Date Recorded Sex Assigned at Not on file Legal Sex Male 4:15 AM CLINICAL FACULTY Gender Identity Not on file Sexual Orientation Not on file documented as of this encounter Plan of Treatment Not on file documented as of this encounter Visit Diagnoses Not on filedocumented in this encounter
--- OUTSIDE RECORDS SUMMARY | 2024-08-25 09:34 | XMS_ITS | Encounter Summary ---
Author Organization [facility] Address [address] [place] [address] Care Team Providers Care Copper Plater Name Role Phone Unavailable Primary Care Provider Unavailabl e Encounter Details Date Type Department Care Team (Late st Contact Info) Description 02/12/2002 Outpatient Historical [facility] Primary Care - [facility] [address] [place] [address] [address] [place] [address] Devyn Bernal Social History Tobacco Use Types Packs/Day Years Used Date Smoking Tobacco: Never Assessed Sex and Gender Information Value Date Recorded Sex Assigned at Not on file Legal Sex Male 4:15 AM SYSTEMS ENGINEER Gender Identity Not on file Sexual Orientation Not on file documented as of this encounter Plan of Treatment Not on file documented as of this encounter Visit Diagnoses Not on filedocumented in this encounter
--- OUTSIDE RECORDS SUMMARY | 2024-08-25 09:34 | XMS_ITS | Clinical Summary ---
Author Organization [facility] Address [address] [place] [address] Care Team Providers Care Artillery Officer Name Role Phone Unavailable Primary Care Provider Unavailabl e Source Comments [facility],non-owned Affiliates and Associated Physician Practices is amultiple site organization consisting of ambulatory clinics and hospital sitesin [place], [place], [place] and [place]. This disclosure is being madepursuant to the Care Everywhere program and may not contain all information available regarding this patient. Last updated 17.[facility] Social History Tobacco Use Types Packs/Day Years Used Date Smoking Tobacco: Never Assessed Sex and Gender Information Value Date Recorded Sex Assigned at Not on file Legal Sex Male 5:01 PM CDT Gender Identity Not on file Sexual Orientation Not on file Plan of Treatment Health Maintenance Due Date Last Done Comments COLOGUARD (AGES 45-75) - COL ON CA SCREENING 1978 COLON MONITORING 1978 COLONOSCOPY - COLON CA SCREENING 1978 CT COLONOGRAPHY - COLON CA SCREENING 1978 Colorectal Cancer Screening 1978 FIT - COLON CA SCREENING 1978 FLEX SIG - COLON CA SCREENING 1978 LIPID TESTING 1978 HIV SCREENING 1993 HEPATITIS C SCREENING 11/03/1996 DTAP/TDAP/TD VACCINES (1 - Tdap) 1997 HEPATITIS B VACCINE (1 of 3 - 19+ 3-dose series) 1997 COVID-19 VACCINE ( - 2023-2 5 season) 2023 DEPRESSION SCREENING 03/26/2024 INFLUENZA VACCINE (Season Ended) 2024 01/12/2017, 12/28/2014 ZOSTER VACCINE (1 of 2) 2028 HIB VACCINE Aged Out No longer eligi ble based on patient's age to complete this topic HPV VACCINE Aged Out No longer eligi ble based on patient's age to complete this topic MENINGOCOCCAL (Group B) VACCINE SHARED DECISION-MAKING Aged Out No longer eligible based on patient's age to complete this topic MENINGOCOCCAL GROUPS A/C/Y/W VACCINE Aged Out No longer eligible b ased on patient's age to complete this topic PNEUMOCOCCAL VACCINE Aged Out No long er eligible based on patient's age to complete this topic Insurance [facility]
--- OUTSIDE RECORDS SUMMARY | 2024-08-25 09:34 | XMS_ITS | Encounter Summary ---
Author Organization [facility] Address [address] [place] [address] Care Team Providers Care Inhalation Therapy Teacher Name Role Phone Unavailable Primary Care Provider Unavailabl e Encounter Details Date Type Department Care Team (Late st Contact Info) Description 04/22/2003 Outpatient Historical [facility] Primary Care - [facility] [address] [place] [address] [address] [place] [address] Devyn Bernal Social History Tobacco Use Types Packs/Day Years Used Date Smoking Tobacco: Never Assessed Sex and Gender Information Value Date Recorded Sex Assigned at Not on file Legal Sex Male 4:15 AM RATE AND COST ANALYST Gender Identity Not on file Sexual Orientation Not on file documented as of this encounter Plan of Treatment Not on file documented as of this encounter Visit Diagnoses Not on filedocumented in this encounter
--- OUTSIDE RECORDS SUMMARY | 2024-08-25 09:34 | XMS_ITS | Encounter Summary ---
Author Organization [facility] Address [address] [place] [address] Care Team Providers Care Patent Paralegal Name Role Phone Unavailable Primary Care Provider Unavailabl e Encounter Details Date Type Department Care Team (Late st Contact Info) Description 02/09/2004 Outpatient Historical [facility] Primary Care - [address] [facility] [place] [address] Braxton Deras MD [address] [facility] [address] [place] [address] Social History Tobacco Use Types Packs/Day Years Used Date Smoking Tobacco: Never Assessed Sex and Gender Information Value Date Recorded Sex Assigned at Not on file Legal Sex Male 4:15 AM 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
--- OUTSIDE RECORDS SUMMARY | 2024-08-25 09:34 | XMS_ITS | Encounter Summary ---
Author Organization [facility] Address [address] [place] [address] Care Team Providers Care Technical Services Specialist Name Role Phone Unavailable Primary Care Provider Unavailabl e Encounter Details Date Type Department Care Team (Late st Contact Info) Description 06/24/2001 Outpatient Historical [facility] [place] [facility] Primary Care - [facility] [address] [place] [address] [address] [place] [address] Devyn Bernal Social History Tobacco Use Types Packs/Day Years Used Date Smoking Tobacco: Never Assessed Sex and Gender Information Value Date Recorded Sex Assigned at Not on file Legal Sex Male 4:15 AM PICTURE BOOKER Gender Identity Not on file Sexual Orientation Not on file documented as of this encounter Plan of Treatment Not on file documented as of this encounter Visit Diagnoses Not on filedocumented in this encounter
--- OUTSIDE RECORDS SUMMARY | 2024-08-25 09:34 | XMS_ITS | Encounter Summary ---
Author Organization [facility] Address [address] [place] [address] Phone Care Team Providers Care Spark Plug Assembler Name Role Phone Eleazar Escamilla MD Primary Care Provider [phone] Fredy Bowden MD Primary Care Provide r Ivana Archer NP Unavailable [phone] Americo Martinez MD Unavailable Norma Garcia MD PhD Unavailable [phone] Cassy Sigala MA Unavailable Encounter Details Date Type Department Care Team (Latest Contact Info) Description 05/24/2022 Orders Only [facility] Scanning, Provider Social History Tobacco Use Types Packs/Day Years Used Date Smoking Tobacco: Some Days Cigarettes Smokeless Tobacco: Never Alcohol Use Standard Drinks/Week Comments No 0 (1 standard drink = 0.6 oz pur e alcohol) Sex and Gender Information Value Date Recorded Sex Assigned at Not on file Legal Sex Male 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 Gender Identity Not on file Sexual Orientation Not on file documented as of this encounter Plan of Treatment Not on file documented as of this encounter Procedures Procedure Name Priority Date/Time Associated Diagnosis Comments SCAN - LABS 05/24/2022 documented in this encounter Results * SCAN - LABS (05/24/2022) us Provider Scanning Final Result documented in this encounter Visit Diagnoses Not on filedocumented in this encounter Additional Health Concerns Infection Onset Date Last Indicated Resolved Time COVID: Suspected 06/08/2024 06/08/2024 06/08/2024 3:12 PM CDT documented as of this encounter Care Teams Spark Plug Assembler Relationship Specialty Start Date End Date Eleazar Escamilla MD [address] [place] [address] PCP - General 08/15/16 07/09/22 [place] [address] [facility] [address] [place] [address] PCP - General Family Medicine 07/10/22 Ivana Archer, [address] [place] [address] Nurse Practitioner Pulmonary Disease 07/10/22 Americo Martinez MD [address] [place] [address] [address] [place] [address] Consulting Physician Gastroenterology 10/09/22 Norma Garcia MD PhD [address] [place] [address] [address] [place] [address] Consulting Physician Allergy and Immunology 10/09/22 Cassy Sigala MA [address] [place] [address] [address] [place] [address] ACO Care Unit Secretary 06/05/24 06/05/24 documented as of this encounter
[2024-08-25] MEDS: IPRATROPIUM 0.5 MG/ALBUTEROL SULFATE 2.5 MG AMPUL.NEB 3 ML INHALATION (10:13)
--- NOTE | 2024-08-25 10:17 | ED_ITS ---
HPI - URI/Sore Throat General Chief Complaint: Upper Respiratory Infection Stated Complaint: Chest Congestion/Asthma Time Seen by Provider: 08/25/24 10:05 Source: patient and RN notes reviewed Mode of arrival: ambulatory Limitations: no limitations History of Present Illness HPI Narrative: 43-year-old male presents Express Care complaining of cough, congestion, sinus pressure, wheezing for 10 days. Patient denies any sore throat, ear pain, chest pain, or shortness of breath. Patient has a history of asthma says he has been using his inhaler and nebulizer as needed. Patient reports he still feels wheezy even after treatment. Patient also reports having a mucopurulent sputum and nasal drainage. Patient denies any other symptoms. Patient denies any smoking history. Related Data Home Medications ?Medication ?Instructions ?Recorded ?Confirmed ?Last Taken ?Type albuterol sulfate 90 mcg/actuation 2 puff inhalation QID PRN 04/24/19 12/17/23 Unknown History aerosol inhaler Shortness Of Breath Or Wheezing atorvastatin 10 mg tablet 10 mg PO DAILY 05/08/21 12/17/23 Unknown History ipratropium 0.5 mg-albuterol 3 mg 3 ml inhalation Q4-6H PRN 04/14/22 12/17/23 Unknown History (2.5 mg base)/3 mL nebulization Shortness Of Breath soln trazodone 50 mg tablet 50 mg PO DAILY 02/24/23 12/17/23 Unknown History budesonide-formoterol HFA 160 See Rx Instructions .Route .COMPLEX 07/30/23 12/17/23 Unknown History mcg-4.5 mcg/actuation aerosol inhaler (Symbicort) cyclobenzaprine 10 mg tablet See Rx Instructions .Route .COMPLEX 07/30/23 12/17/23 Unknown History loratadine 10 mg tablet 10 mg PO DAILY 07/30/23 12/17/23 Unknown History tiotropium bromide 1.25 See Rx Instructions .Route .COMPLEX 07/30/23 12/17/23 Unknown History mcg/actuation mist for inhalation (Spiriva Respimat) Allergies Allergy/AdvReac Type Severity Reaction Status Date / Time No Known Allergies Allergy Verified 12/17/23 16:53 Review of Systems Review of Systems: CONSTITUTIONAL: Denies fever, chills, body aches, or sweats. EYES: Denies visual changes, redness, or discharge. ENT: Positive for congestion and sinus pressure. Negative for rhinorrhea, sore throat, or otalgia. CARDIOVASCULAR: Denies chest pain, palpitations, or edema. RESPIRATORY: Positive for cough and wheezing. Negative for dyspnea. GASTROINTESTINAL: Denies abdominal pain, nausea, vomiting, or diarrhea. GENITOURINARY: Denies dysuria or hematuria. SKIN: Denies rash or itching. MUSCULOSKELETAL: Denies back pain, joint pain, or myalgia. NEUROLOGIC: Denies headache, numbness, or weakness. PSYCHIATRIC: Denies anxiety or depression. All other systems reviewed are negative, except as documented in HPI. [facility] Past Medical History Medical History Asthma Elevated cholesterol Muscular dystrophy Seasonal allergies Surgical History Surgical History No pertinent past surgical history Family History Family History Mother Family history non-contributory Social History Social History Social History: Has some exposure to 2nd hand tobacco Smoking packs per day: 0.25 Smoking cigarettes per day: 5.0 Years smoked: 20 Smoking pack-years: 5.00 Smoking status: Former smoker Additional smoking assessment comments: quit one year ago Alcohol intake: never Substance use: never Living arrangements: with family Gender identity (if verbalized by the patient): Male Comments At the time of my signature, I reviewed and agree with the nursing past medical, surgical, social, and family history. There is no relevant family history pertinent to the patient complaint. Exam Narrative: GENERAL: This is a well-nourished, well-developed adult, in no apparent distress. They are non ill-appearing, nontoxic appearing. HEAD: normocephalic, atraumatic. EYES: Sclera clear/white. Vision is grossly intact. Conjunctiva normal bilaterally. Extraocular movements intact. EARS: External ears normal, auditory canals clear and without drainage, TMs without erythema or perforation. Hearing grossly intact. NOSE: External nose normal with no obvious nasal discharge, nasal turbinates erythematous, no rhinorrhea. Sinus tenderness to palpation to the maxillary sinuses. THROAT: Mucous membranes moist, posterior pharynx pink without redness or swelling without exudate. Uvula is midline. Postnasal drip present. NECK: Neck supple, non-tender without lymphadenopathy, masses or thyromegaly. CARDIOVASCULAR: Regular rate and rhythm without murmurs, gallops, or rubs. RESPIRATORY: Expiratory wheezes heard throughout. Breath sounds equal bilaterally. No rales, or rhonchi. Respiratory rate normal, respiratory effort nonlabored, no respiratory distress SKIN: warm, Dry, intact with no suspicious lesions or rash, good texture and turgor. NEURO: awake, alert, and oriented to person, place and time. There were no obvious focal neurologic abnormalities. EXTREMITIES: No joint tenderness, effusion, or edema noted. BACK: Nontender without deformity. Course Course Emergency Course: Patient given duo nebulizer treatment. Patient's wheezing completely result. Patient reports feeling a lot better. Repeat lung sounds show that they are clear to auscultation throughout. Patient is in no distress. Level of Care: Express Care Visit Vital Signs Vital signs: Vital Signs Temperature 98.4 F 08/25/24 09:26 Pulse Rate 88 08/25/24 09:26 Respiratory Rate 20 08/25/24 09:26 Blood Pressure 148/95 H 08/25/24 09:26 Pulse Oximetry 98 08/25/24 09:26 Oxygen Delivery Room Air 08/25/24 09:26 Temperature 98.4 F 08/25/24 09:26 Pulse Rate 88 08/25/24 09:26 Respiratory Rate 20 08/25/24 09:26 Blood Pressure 148/95 H 08/25/24 09:26 Pulse Oximetry 98 08/25/24 09:26 Oxygen Delivery Room Air 08/25/24 09:26 MDM - URI/Sore Throat MDM Narrative Medical decision making narrative: Chest x-ray showed no evidence of pneumonia or acute findings. Large hiatal hernia was noted on x-ray showed was incidental finding. Patient is aware of his hiatal hernia. Likely patient has and asthma exacerbation that was exacerbated by upper respiratory infection. Patient was given a DuoNeb treatment and reports that typically feeling better, and his wheezing has resolved completely. Given patient's length of upper respiratory symptoms likely as a bacterial sinusitis. Will treat empirically with Augmentin. Will also give patient a course of steroids for asthma. Will refill patient's albuterol nebulizer as he says he is almost out. Discussed physical exam findings. Advised supportive measures and signs/symptoms to go to the ER. Pt is appropriate for outpt treatment and f/u. Differential Diagnosis Differential diagnosis: Likely upper respiratory infection, sinusitis, viral infection, bronchitis and other (Asthma exacerbation, pneumonia) Discharge Plan Discharge Clinical Impression: Sinusitis Qualifiers: Sinusitis location: unspecified location Chronicity: acute Recurrence: non- recurrent Qualified Code(s): J01.90 - Acute sinusitis, unspecified Asthma Qualifiers: Asthma severity: mild Asthma persistence: intermittent Asthma complication type: with acute exacerbation Qualified Code(s): J45.21 - Mild intermittent asthma with (acute) exacerbation Patient Disposition: Home Condition: Stable Instructions: Antibiotic Form, Asthma (ED), Sinusitis (ED) Additional Instructions: Chest x-ray was negative for any pneumonia or acute findings. It is likely that you have a bacterial sinus infection that worsened your asthma symptoms. Use your albuterol nebulizer that when inhaler as directed. Refilled your nebulizer prescription. Take the prednisone as directed, take in the morning with food. Take the antibiotics as directed and complete the course even if you start to feel better. You may use a Neti pot saline rinse 3 times a day with lukewarm distilled water Continue to take Tylenol or Motrin for pain. Use a humidifier or vaporizer at night. Drink plenty of water. 8-10 glasses per day. Use flonase 2 times per day for 5 days then as needed Take mucinex 2 times per day and be sure to take with 8oz of water. Follow up with Primary provider in 3-5 days Please go to the ER if he develops any difficulty breathing, worsening symptoms, or any other concerns Patient Language: Liberian Prescriptions: New albuterol sulfate 2.5 mg /3 mL (0.083 %) solution for nebulization 2.5 mg inhalation Q4H PRN (Reason: shortness of breath or wheezing) Qty: 75 0RF prednisone 20 mg tablet 40 mg PO DAILY 5 Days Qty: 10 0RF amoxicillin-pot clavulanate 875-125 mg tablet 1 tablet PO Q12H 7 Days Qty: 14 0RF No Action albuterol sulfate 2.5 mg /3 mL (0.083 %) solution for nebulization 2.5 mg INHALATION Q4H PRN (Reason: shortness of breath or wheezing) Qty: 90 0RF atorvastatin 10 mg Tablet 10 mg PO DAILY trazodone 50 mg tablet 50 mg PO DAILY cyclobenzaprine 10 mg tablet See Rx Instructions .ROUTE .COMPLEX Rx Instructions: as prescribed loratadine 10 mg tablet 10 mg PO DAILY budesonide-formoterol [Symbicort] 160-4.5 mcg/actuation HFA aerosol inhaler See Rx Instructions .ROUTE .COMPLEX Rx Instructions: as prescribed Spiriva Respimat 1.25 mcg/actuation mist See Rx Instructions .ROUTE .COMPLEX Rx Instructions: as prescribed methylprednisolone [Medrol (Dickson)] 4 mg tablets,dose pack See Rx Instructions .ROUTE .COMPLEX Qty: 21 0RF Rx Instructions: orally per package directions. Start 12/18/23. albuterol sulfate 90 mcg/actuation Hfa Aerosol Inhaler 2 puff INHALATION QID PRN (Reason: Shortness Of Breath Or Wheezing) ipratropium-albuterol 0.5 mg-3 mg(2.5 mg base)/3 mL solution for nebulization 3 ml INHALATION Q4-6H PRN (Reason: Shortness Of Breath) Follow-up/Referrals: PHYSICIAN NOT ON STAFF,NONSTAFF [Primary Care Provider] - Time of Disposition: 11:06
== END 2024-08-25 11:14 | disposition home or self-care (01) ==
DX: J01.90 Acute sinusitis, unspecified (principal); J45.21 Mild intermittent asthma with (acute) exacerbation; Z87.891 Personal history of nicotine dependence; E78.00 Pure hypercholesterolemia, unspecified; G71.00 Muscular dystrophy, unspecified
CPT/HCPCS: 71046; 94640; 99213; G0463

== ENCOUNTER 2024-12-12 08:31 | Emergency (ER) | payer OTHER, SELFPAY ==
--- NOTE | 2024-12-12 08:34 | ED.URI ---
HPI - URI/Sore Throat General Chief Complaint: Upper Respiratory Infection Stated Complaint: asthma issues, conjestion Time Seen by Provider: 12/12/24 08:44 Source: patient and RN notes reviewed Mode of arrival: ambulatory Limitations: no limitations History of Present Illness HPI Narrative: 44-year-old male with history of asthma presents with concern for flare-up. Reports for 1 and half weeks he has had increased shortness of breath and cough. Reports he is coughing clear mucus. Reports he is using his nebulizer every 4 hours. He reports he used it last night 715 this morning. He has been feeling warm, has not measured a temperature. Reports he has runny nose and stuffy nose. MD elicited complaint: cough Related Data Home Medications ?Medication ?Instructions ?Recorded ?Confirmed ?Last Taken ?Type albuterol sulfate 90 mcg/actuation 2 puff inhalation QID PRN 04/24/19 12/17/23 Unknown History aerosol inhaler Shortness Of Breath Or Wheezing atorvastatin 10 mg tablet 10 mg PO DAILY 05/08/21 12/17/23 Unknown History ipratropium 0.5 mg-albuterol 3 mg 3 ml inhalation Q4-6H PRN 04/14/22 12/17/23 Unknown History (2.5 mg base)/3 mL nebulization Shortness Of Breath soln trazodone 50 mg tablet 50 mg PO DAILY 02/24/23 12/17/23 Unknown History budesonide-formoterol HFA 160 See Rx Instructions .Route .COMPLEX 07/30/23 12/17/23 Unknown History mcg-4.5 mcg/actuation aerosol inhaler (Symbicort) cyclobenzaprine 10 mg tablet See Rx Instructions .Route .COMPLEX 07/30/23 12/17/23 Unknown History loratadine 10 mg tablet 10 mg PO DAILY 07/30/23 12/17/23 Unknown History tiotropium bromide 1.25 See Rx Instructions .Route .COMPLEX 07/30/23 12/17/23 Unknown History mcg/actuation mist for inhalation (Spiriva Respimat) Allergies Allergy/AdvReac Type Severity Reaction Status Date / Time No Known Allergies Allergy Verified 12/12/24 08:38 Review of Systems Review of Systems: CONSTITUTIONAL: Denies malaise, chills, sweats, or fever. EYES: Denies visual changes, redness, or discharge. ENT: Reports rhinorrhea, congestion. Denies sinus pain, otalgia and sore throat. CARDIOVASCULAR: Denies chest pain, palpitations, or edema. RESPIRATORY: Reports cough, dyspnea. GASTROINTESTINAL: Denies abdominal pain, nausea, vomiting, diarrhea SKIN: Denies rash or itching. MUSCULOSKELETAL: Denies myalgia. NEUROLOGIC: Denies headache. All systems reviewed & are unremarkable except as noted in HPI and below PMFSH Past Medical History Medical History Asthma Elevated cholesterol Muscular dystrophy Seasonal allergies Surgical History Surgical History No pertinent past surgical history Family History Family History Mother Family history non-contributory Social History Social History Social History: Has some exposure to 2nd hand tobacco Smoking packs per day: 0.25 Smoking cigarettes per day: 5.0 Years smoked: 20 Smoking pack-years: 5.00 Smoking status: Former smoker Additional smoking assessment comments: quit one year ago Alcohol intake: never Substance use: never Living arrangements: with family Gender identity (if verbalized by the patient): Male Comments At time of signature, agree with nursing past medical, surgical, social and family history. There is no relevant family history pertinent to the presenting complaint Exam Narrative: GENERAL: Well-appearing, well-nourished, and in no acute distress. HEAD: Normocephalic EYES: PERRLA, conjunctivae clear ENT: Nares clear. Mucous membranes moist. TM pearly machado with sharp light reflex bilaterally; no tragal tenderness. Oropharynx not erythematous without lesions. Tonsils not enlarged and without exudate, no drooling, no hoarseness, no trismus, uvula midline. NECK: Supple. No lymphadenopathy CHEST: Scattered wheeze, otherwise Clear to auscultation, breath sounds equal. No rhonchi, rales, or stridor. No respiratory distress, speaks in full sentences. HEART: Regular rate and rhythm. No murmur heard. SKIN: Warm, dry, no rash. NEURO: Alert and oriented x3. PSYCH: Normal mood and affect Course Course Emergency Course: Patient is aware of diagnosis, understands and agrees to treatment plan. Anticipatory guidance given. Patient agrees to follow-up as directed and is aware of reasons to seek care at the emergency department. Portions of this record may have been created with voice recognition software Level of Care: Express Care Visit Vital Signs Vital signs: Reviewed. MDM - URI/Sore Throat MDM Narrative Medical decision making narrative: Differential diagnosis considered: Sdidiqui virus, strep pharyngitis, allergic rhinitis, upper respiratory tract infection, sinusitis, rhinosinusitis, nasopharyngitis. viral pharyngitis, otitis media, otitis externa, pneumonia, bronchitis, viral cough syndrome, viral syndrome, and influenza. Exam findings show no acute concerns or changes; patient is non-toxic appearing and is in no distress. Patient is appropriate for outpatient treatment and follow-up. Lab Data Attestation: I reviewed the patient's lab results. Critical Care Time Critical Care Time Critical Care Time: No Discharge Plan Discharge Clinical Impression: Asthma exacerbation Patient Disposition: Home Condition: Stable Instructions: Antibiotic Form, Asthma (ED) Additional Instructions: Take medicines as directed. Visit your primary care doctor if: You have wheezing, shortness of breath, or a cough even if taking medicine to prevent attacks. You have thickening of sputum. Your sputum changes from clear or white to yellow, green, machado, or bloody. You have any problems that may be related to the medicines you are taking (such as a rash, itching, swelling, or trouble breathing). You are using a reliever medicine more than 2 to 3 times per week. Visit the ER if: You are short of breath even at rest or when doing very little physical activity. You develop difficulty eating, drinking, or talking due to asthma symptoms. You have chest pain or you feel that your heart is beating fast. You are lightheaded, dizzy, faint or have bluish lips or fingernails. You have a fever or persistent symptoms for more than 2 to 3 days or symptoms suddenly get worse. You seem to be getting worse and are unresponsive to treatment during an asthma attack. Patient Language: Italian Prescriptions: New azithromycin [Zithromax Z-Dickson] 250 mg tablet See Rx Instructions .ROUTE .COMPLEX Qty: 6 0RF Rx Instructions: take 500 mg today (day 1), then 250 mg for 4 days (days 2-5) prednisone 20 mg tablet 40 mg PO DAILY 5 Days Qty: 10 0RF No Action albuterol sulfate 2.5 mg /3 mL (0.083 %) solution for nebulization 2.5 mg INHALATION Q4H PRN (Reason: shortness of breath or wheezing) Qty: 90 0RF atorvastatin 10 mg Tablet 10 mg PO DAILY trazodone 50 mg tablet 50 mg PO DAILY cyclobenzaprine 10 mg tablet See Rx Instructions .ROUTE .COMPLEX Rx Instructions: as prescribed loratadine 10 mg tablet 10 mg PO DAILY budesonide-formoterol [Symbicort] 160-4.5 mcg/actuation HFA aerosol inhaler See Rx Instructions .ROUTE .COMPLEX Rx Instructions: as prescribed Spiriva Respimat 1.25 mcg/actuation mist See Rx Instructions .ROUTE .COMPLEX Rx Instructions: as prescribed methylprednisolone [Medrol (Dickson)] 4 mg tablets,dose pack See Rx Instructions .ROUTE .COMPLEX Qty: 21 0RF Rx Instructions: orally per package directions. Start 12/18/23. albuterol sulfate 90 mcg/actuation Hfa Aerosol Inhaler 2 puff INHALATION QID PRN (Reason: Shortness Of Breath Or Wheezing) ipratropium-albuterol 0.5 mg-3 mg(2.5 mg base)/3 mL solution for nebulization 3 ml INHALATION Q4-6H PRN (Reason: Shortness Of Breath) albuterol sulfate 2.5 mg /3 mL (0.083 %) solution for nebulization 2.5 mg inhalation Q4H PRN (Reason: shortness of breath or wheezing) Qty: 75 0RF prednisone 20 mg tablet 40 mg PO DAILY 5 Days Qty: 10 0RF Follow-up/Referrals: UNKNOWN,DOCTOR [Primary Care Provider] Time of Disposition: 08:51
--- OUTSIDE RECORDS SUMMARY | 2024-12-12 08:34 | XMS_ITS | Encounter Summary ---
Author Organization [facility] Address [address] [place] [address] Care Team Providers Care Author Agent Name Role Phone Unavailable Primary Care Provider Unavailabl e Encounter Details Date Type Department Care Team (Late st Contact Info) Description 04/22/2003 Outpatient Historical [facility] Primary Care - 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
--- OUTSIDE RECORDS SUMMARY | 2024-12-12 08:34 | XMS_ITS | Encounter Summary ---
Author Organization [facility] Address 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
--- OUTSIDE RECORDS SUMMARY | 2024-12-12 08:34 | XMS_ITS | Clinical Summary ---
Author Organization [facility] Address [address] [place] [address] Care Team Providers Care Electrical Maintenance Worker Name Role Phone Unavailable Primary Care Provider Unavailabl e Source Comments [facility],non-owned Affiliates and Associated Physician Practices is amultiple site organization consisting of ambulatory clinics and hospital sitesin [place], [place], [place] and [place]. This disclosure is being madepursuant to the Care Everywhere program and may not contain all information available regarding this patient. Last updated 17.[facility] Social History Tobacco Use Types Packs/Day Years [...] of 3 - 19+ 3-dose series) 1997 DEPRESSION SCREENING 03/26/2024 COVID-19 VACCINE (1 - 2023-2 5 season) 2024 INFLUENZA VACCINE (#1) 2024 7, 12/28/2014 ZOSTER VACCINE (1 of 2) 2028 [...] patient's age to complete this topic Insurance [facility]
--- OUTSIDE RECORDS SUMMARY | 2024-12-12 08:34 | XMS_ITS | Encounter Summary ---
Author Organization [facility] Address 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
--- OUTSIDE RECORDS SUMMARY | 2024-12-12 08:34 | XMS_ITS | Encounter Summary ---
Author Organization 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 Gender Identity Not on file Sexual Orientation [...] documented as of this encounter Care Teams Solid Plasterer Relationship Specialty Start Date End Date Eleazar Escamilla MD [address] [place] [address] PCP - General 08/15/16 07/09/22 [place] [address] [facility] [address] [place] [address] PCP - General Family Medicine 07/10/22 Ivana Archer, [address] [place] [address] Nurse Practitioner Pulmonary Disease 07/10/22 Americo Martinez MD [address] [place] [address] [address] [place] [address] Consulting Physician Gastroenterology 10/09/22 Norma Garcia MD PhD [address] [place] [address] [address] [place] [address] Consulting Physician Allergy and Immunology 10/09/22 Cassy Sigala MA [address] [place] [address] [address] [place] [address] ACO Care Architectural Sales Consultant 06/05/24 06/05/24 documented as of this encounter
--- OUTSIDE RECORDS SUMMARY | 2024-12-12 08:34 | XMS_ITS | Encounter Summary ---
Author Organization [facility] Address [address] [place] [address] Care Team Providers Care Big Data Software Engineer Name Role Phone Unavailable Primary Care Provider Unavailabl e Encounter Details Date Type Department Care Team (Late st Contact Info) Description 02/09/2004 Outpatient Historical [facility] Primary Care - [address] [facility] [address] [place] [address] Braxton Deras MD [address] [facility] [address] [place] [address] Social History Tobacco Use Types Packs/Day Years Used Date Smoking Tobacco: Never Assessed Sex and Gender Information Value Date Recorded Sex Assigned at Not on file Legal 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
--- OUTSIDE RECORDS SUMMARY | 2024-12-12 08:34 | XMS_ITS | Clinical Summary ---
Author Organization [facility] Address [address] [place] [address] Phone Care Team Providers Care Molding Sander Name Role Phone Eleazar Escamilla MD Primary Care Provider [phone] Allergies No known active allergies Medications Montelukast [...] Comments Blood Pressure 133/79 04/27/2018 9:27 AM AUTOMOBILE MECHANIC HELPER Pulse 79 04/27/2018 10:14 AM AUTOMOBILE MECHANIC HELPER Temperature 36.6 C (97.8 F) 04/27/2018 9:27 AM AUTOMOBILE MECHANIC HELPER Respiratory Rate 18 04/27/2018 10:14 AM AUTOMOBILE MECHANIC HELPER Oxygen Saturation 98% 04/27/2018 10:14 AM AUTOMOBILE MECHANIC HELPER Inhaled Oxygen Concentration - - Weight 81.6 kg (180 lb) 04/27/2018 9:27 AM AUTOMOBILE MECHANIC HELPER Height 177.8 cm (5' 10) 04/27/2018 9:27 AM AUTOMOBILE MECHANIC HELPER Body Mass Index 25.83 04/27/2018 9:27 AM AUTOMOBILE MECHANIC HELPER Plan of Treatment Health Maintenance Due Date Last Done Comments Hepatitis C Virus (HCV) Screening 1978 Hepatitis B Immunization (1 of 3 - 19+ 3-dose series) 1997 Cologuard 11/09/2023 Colonoscopy 11/09/2023 Colorectal Cancer Screening 11/09/2023 Immunochemical Fecal Occult Blood 11/09/2023 Influenza Immunization (#1) 11/24/202412/25, 12/28/2014 SARS-COV-2 Immunization ( season) 2024 Respiratory Syncytial Virus (RSV) Immunization (Adult) (1 - 1-dose 75+ series) 2053 Pneumococcal Immunization Combined Aged Out 06/02/2014 No longer eligible based on patient's age to complete this topic DTaP/Tdap/Td Immunization Discontinued 06/28/2016 TdaP Immunization Completed 06/28/2016 Human Papillomavirus (HPV) Immunization Aged Out No longer eligible based on patient's age to complete this topic Meningococcal Immunization (ACWY) Aged Out No longer eligible based on patient's age to complete this topic Rotavirus Immunization Aged Out No lo nger eligible based on patient's age to complete this topic Insurance MEDICAID [employer] Care Teams Molding Sander Relationship Specialty Start Date End Date Eleazar Escamilla MD [address] [place] [address] PCP - General Internal Medicine 06/11/17
--- OUTSIDE RECORDS SUMMARY | 2024-12-12 08:34 | XMS_ITS | Encounter Summary ---
Author Organization [facility] Address 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
--- OUTSIDE RECORDS SUMMARY | 2024-12-12 08:34 | XMS_ITS | Clinical Summary ---
Author Organization [facility] Address [address] [place] [address] Care Team Providers Care Automation Qa Lead Name Role Phone Fredy Bowden MD Primary Care Provide r Ivana Archer NP Unavailable [phone] Americo Martinez MD Unavailable Norma Garcia MD PhD Unavailable [phone] Allergies Active Allergy Reactions Criticality Noted Date Comments Milk Diarrhea Low 08/19/2018 Penicillins Diarrhea Low 09/15/2022 Medications ibuprofen (ADVIL,MOTRIN) 600 mg tablet Take 1 tablet (600 mg total) by mouth every 8 (eight) hours 8 Active multivit-mineral s/folic acid (CENTRUM ADULTS ORAL) Take 1 tablet by mouth daily Active MAGNESIUM CARBONATE ORAL Take 1 tablet by mouth daily 500mg Active albuterol 2.5 mg /3 mL (0.083 %) nebulizer solution Take 3 mL (2.5 mg total) by nebulization every 6 (six) hours as needed for wheezing 180 mL 11 4 Active fluticasone propionate (FLONASE) 50 mcg/actuation nasal spray Administer 2 sprays into each nostril 2 (two) times a day 16 g 3 4 Active budesonide-formo teroL (Symbicort) 160-4.5 mcg/actuation inhalerIndicatio ns:Severe persistent asthma with (acute) exacerbation (HCC) Inhale 2 puffs 2 (two) times a day Rinse mouth with water after use. Do not swallow. 1 each 11 4 Active montelukast (SINGULAIR) 10 mg tablet TAKE 1 TABLET BY MOUTH DAILY 90 tablet 3 5 Active cyclobenzaprine (FLEXERIL) 10 mg tablet Take 1 tablet (10 mg total) by mouth 3 (three) times a day as needed for muscle spasms 60 tablet 2 5 Active Spiriva Respimat 1.25 mcg/actuation inhaler Inhale 2 puffs daily 4 g 11 5 Active loratadine (CLARITIN) 10 mg tabletIndication s:Seasonal allergic rhinitis due to pollen TAKE 1 TABLET BY MOUTH EVERY DAY 100 tablet 1 5 Active albuterol HFA (PROVENTIL HFA,VENTOLIN HFA,PROAIR HFA) 90 mcg/actuation inhaler INHALE 2 PUFFS BY MOUTH EVERY 4 HOURS NEEDED FOR WHEEZING 18 g 5 5 Active Active Problems Problem Noted Date Diagnosed Date [...] Medical History Date Comments Asthma Neuromuscular disorder Acute bronchitis 10/23/2018 Asthma with acute exacerbation 10/23/2018 Acute maxillary sinusitis 04/28/2022 Sleep apnea Rectal bleeding 08/04/2022 Family History Medical History Relation Name Comments Asthma Father reji agustin sr Hyperlipidemia Other Hypertension Other Relation Name Status Comments Father reji agustin sr Other Social History Tobacco Use Types Packs/Day Years Used Date Smoking Tobacco: Former Cigarettes 2 23.7 S tarted: 2002 Smokeless Tobacco: Never Tobacco [...] on file 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 Gender Identity Not on file Sexual Orientation [...] Maintenance Due Date Last Done Comments Hepatitis B Screening 1996 Depression Screening 10/09/2024 10/10/2023, 10/10/2023, 07/10/2022 Regular Well Visit/Exam 18-64 10/09/2024 10/10/2023, 10/09/2022 Influenza Vaccine (#1) 2024 , 01/12/2017, 12/28/2014, Additional history exists DTaP/Tdap/Td Vaccine (2 - Td or Tdap) 06/28/2026 06/28/2016 Colon Cancer Screening-Colonoscopy 08/07/2032 08/07/2022 Pneumococcal vaccine <65 Completed 10/09/2022, 05/24 Hepatitis C Screening Completed 10/10/2023 HPV Vaccines Aged Out No longer eligi ble based on patient's age to complete this topic Procedures Procedure Name Priority Date/Time Associated Diagnosis Comments HEPATITIS C ANTIBODY Routine 10/10/2023 3:00 PM CDT Annual physical exam COLONOSCOPY 08/07/2022 7:30 AM CDT from Last 3 Months or Most Recently Relevant to Health Maintenance Results * Hepatitis C antibody Blood (10/10/2023 3:00 [...] CDT Fredy Bowden MD LAB MICROBIOLOGY - [facility] ORDERABLES Final Result [facility] [address] [facility] Department [place] [address] * COLONOSCOPY (08/07/2022 7:30 AM CDT) Anatomical Region Laterality Modality Other Narrative Procedure Note Americo Martinez MD - 08/07/2022 7:30 AM CDT [facility] Patient Name: Reji Aj Procedure Date: 08/07/2022 7:30 AM Date of : 1980 Admit Type: Outpatient Age: 41 Gender: Male Attending MD: Americo Martinez M.D. Room: [facility] ENDOSCOPY ROOM 3 Note Status: Finalized Patient Profile: This is a 41 year old male h/o asthma, HLD,scoliosis here for colonoscopy for evaluation of rectalbleeding and iron deficiency without anemia. [id number] with some benign polyps per patient. was [...] procedure were verified by the physician, the criminal intelligence specialist and the soil conservation technician in the endoscopy suite. Mental Status [...] scope was passed under direct vision. TheColonoscope [id number] was introduced through the anus and advanced [...] 7:30 AM Procedure Code(s): --- Professional --- 77850, Colonoscopy, flexible; with biopsy, single or multiple --- Technical --- 98953, Colonoscopy, flexible; with biopsy, single or multiple Diagnosis Code(s): --- Professional --- K64.8, Other hemorrhoids K62.89, Other specified diseases of anus and rectum K62.5, Hemorrhage of anus and rectum D50.9, Iron deficiency anemia, unspecified --- Technical --- K64.8, Other hemorrhoids K62.89, Other specified diseases of anus and rectum K62.5, Hemorrhage of anus and rectum D50.9, Iron deficiency anemia, unspecified CPT copyright 2020 [employer]. All rights reserved. The codes documented in this report are preliminary and upon solar energy systems designer reviewmay be revised to meet current compliance requirements. Recognized by the [employer] for promoting quality in endoscopy Americo Martinez MD ENDOSCOPY PROCEDURES Final Resul t from Last 3 Months or Most Recently Relevant to Health Maintenance Insurance [facility] PLAN [facility] Advance Directives For more information, please contact: [phone] * Full Code (Latest Code Status on File) Date Activated Date Inactivated Comments 08/07/2022 7:31 AM 08/07/2022 1:39 PM * Full Code Date Activated Date Inactivated Comments 08/07/2022 7:31 AM 08/07/2022 7:31 AM Care Teams Automation Qa Lead Relationship Specialty [place] [id number] [address] PCP - General Family Medicine 07/10/22 Ivana Archer NP [address] [place] [address] Nurse Practitioner Pulmonary Disease 07/10/22 Americo Martinez MD [address] [place] [address] Consulting Physician Gastroenterology 10/09/22 Norma Garcia MD PhD [address] [place] [address] DR RAMOS [address] [place] [address] Consulting Physician Allergy and Immunology 10/09/22
--- OUTSIDE RECORDS SUMMARY | 2024-12-12 08:34 | XMS_ITS | Encounter Summary ---
Author Organization [facility] Address [address] [place] [address] Care Team Providers Care Demonstrator Sales Name Role Phone Unavailable Primary Care Provider Unavailabl e Encounter Details Date Type Department Care Team (Late st Contact Info) Description 07/24/2002 Outpatient Historical [facility] Primary Care - [facility] [address] [place] [address] [address] [place] [address] Devyn Bernal Social History Tobacco Use Types Packs/Day Years Used Date Smoking Tobacco: Never Assessed Sex and Gender Information Value Date Recorded Sex Assigned at Not on file 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
--- OUTSIDE RECORDS SUMMARY | 2024-12-12 08:34 | XMS_ITS | Encounter Summary ---
Author Organization [facility] Address 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
--- OUTSIDE RECORDS SUMMARY | 2024-12-12 08:34 | XMS_ITS | Encounter Summary ---
Author Organization [facility] Address 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
--- OUTSIDE RECORDS SUMMARY | 2024-12-12 08:34 | XMS_ITS | Clinical Summary ---
Author Organization [facility] Address [address] 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
[2024-12-12 08:38] VITALS: BP 164/97; PULSE 89; RESP 16; TEMP 36.5; O2SAT 96
== END 2024-12-12 08:53 | disposition home or self-care (01) ==
PROVIDERS: Emergency Provider Nurse Practitioner
DX: J45.901 Unspecified asthma with (acute) exacerbation (principal); G71.00 Muscular dystrophy, unspecified; E78.00 Pure hypercholesterolemia, unspecified; Z87.891 Personal history of nicotine dependence
CPT/HCPCS: 99213; G0463

== ENCOUNTER 2025-01-14 11:03 | Emergency (ER) | payer OTHER, SELFPAY ==
[2025-01-14 11:17] VITALS: BP 131/89; PULSE 95; RESP 16; TEMP 37.1; O2SAT 96
--- NOTE | 2025-01-14 11:24 | ED.URI ---
HPI - URI/Sore Throat General Chief Complaint: Upper Respiratory Infection Stated Complaint: asthma flare up Time Seen by Provider: 01/14/25 11:07 Source: patient Mode of arrival: ambulatory Limitations: no limitations History of Present Illness HPI Narrative: Reji is a 44-year-old male patient presenting to the clinic today with complaints of an asthma flare for the past 5-6 days. He reports he is coughing up some clear phlegm. Denies any fevers, chills, body aches. Does have cough with some shortness of breath. Used albuterol nebulizer at 9:00 a.m. this morning. Denies any chest pain. Takes montelukast, Symbicort, and Spiriva. Related Data Home Medications ?Medication ?Instructions ?Recorded ?Confirmed ?Last Taken ?Type albuterol sulfate 90 mcg/actuation 2 puff inhalation QID PRN 04/24/19 12/17/23 Unknown History aerosol inhaler Shortness Of Breath Or Wheezing atorvastatin 10 mg tablet 10 mg PO DAILY 05/08/21 12/17/23 Unknown History ipratropium 0.5 mg-albuterol 3 mg 3 ml inhalation Q4-6H PRN 04/14/22 12/17/23 Unknown History (2.5 mg base)/3 mL nebulization Shortness Of Breath soln trazodone 50 mg tablet 50 mg PO DAILY 02/24/23 12/17/23 Unknown History budesonide-formoterol HFA 160 See Rx Instructions .Route .COMPLEX 07/30/23 12/17/23 Unknown History mcg-4.5 mcg/actuation aerosol inhaler (Symbicort) loratadine 10 mg tablet 10 mg PO DAILY 07/30/23 12/17/23 Unknown History tiotropium bromide 1.25 See Rx Instructions .Route .COMPLEX 07/30/23 12/17/23 Unknown History mcg/actuation mist for inhalation (Spiriva Respimat) fluticasone propionate 50 intranasal 01/14/25 Unknown History mcg/actuation nasal spray,suspension montelukast 10 mg tablet mg 01/14/25 Unknown History Allergies Allergy/AdvReac Type Severity Reaction Status Date / Time No Known Allergies Allergy Verified 01/14/25 11:20 Review of Systems Review of Systems: Pertinent positives per HPI. Patient denies any fever, chills, rash, headache, visual changes, dizziness, chest pain, palpitations, nausea, vomiting, diarrhea, constipation, abdominal pain, or any urinary issues. [facility] Past Medical History Medical History Elevated cholesterol Muscular dystrophy Seasonal allergies Asthma Surgical History Surgical History No pertinent past surgical history Family History Family History Mother Family history non-contributory Social History Social History Social History: Has some exposure to 2nd hand tobacco Smoking packs per day: 0.25 Smoking cigarettes per day: 5.0 Years smoked: 20 Smoking pack-years: 5.00 Smoking status: Former smoker Additional smoking assessment comments: quit one year ago Alcohol intake: never Substance use: never Living arrangements: with family Gender identity (if verbalized by the patient): Male Comments At the time of my signature, I reviewed and agree with the nursing past medical, surgical, social, and family history. There is no relevant family history pertinent to the patient complaint. Exam Narrative: General: Well-developed, well nourished, in no apparent distress Head: Normocephalic, atraumatic Eyes: Pupils equally round and reactive to light bilaterally, EOM intact, sclera and conjunctive clear, no discharge, lids normal Ears: TMs intact and clear, ear canals clear, no drainage, grossly hearing normal. Nose: Nares patent, no discharge, no inflammation, no sinus tenderness. Mouth: Oral pharynx without lesions or masses, good dentition, MMM. Neck: Supple, trachea midline, no enlargement of anterior or posterior cervical nodes, no thyroid masses or goiter palpable. Cardio: Regular rate and rhythm, s1 and s2 normal, no murmur appreciated. Resp: Inspiratory and expiratory wheezing throughout lung wilkinson, no rhonchi, rales, or rubs, SpO2 96% on room air, patient able speak in full sentences, no retractions Course Course Emergency Course: Portions of this record may have been created with voice recognition software. Level of Care: Express Care Visit Vital Signs Vital signs: Vital Signs Temperature 37.1 C 01/14/25 11:17 Pulse Rate 95 01/14/25 11:17 Respiratory Rate 16 01/14/25 11:17 Blood Pressure 131/89 01/14/25 11:17 Pulse Oximetry 96 01/14/25 11:17 Oxygen Delivery Room Air 01/14/25 11:17 Temperature 37.1 C 01/14/25 11:17 Pulse Rate 95 01/14/25 11:17 Respiratory Rate 16 01/14/25 11:17 Blood Pressure 131/89 01/14/25 11:17 Pulse Oximetry 96 01/14/25 11:17 Oxygen Delivery Room Air 01/14/25 11:17 Vital signs reviewed MDM - URI/Sore Throat MDM Narrative Medical decision making narrative: At the time of visit patient is resting comfortably on the exam table. Patient appears to be nontoxic. Complaints of an asthma flare for the past 5-6 days. He reports he is coughing up some clear phlegm. Denies any fevers, chills, body aches. Does have cough with some shortness of breath. Used albuterol nebulizer at 9:00 a.m. this morning. Denies any chest pain. Takes montelukast, Symbicort, and Spiriva. On exam patient has inspiratory and expiratory wheezing throughout lung wilkinson, heart rates regular rate and rhythm, SpO2 96% on room air and patient is able speak in full sentences. DuoNeb hand-held neb treatment ordered. Medications: DuoNeb hand-held neb treatment given in the clinic today Plan: I suspect patient has asthma exacerbation. DuoNeb Hand-held neb treatment given in the clinic today and this improved patient's lung sounds and he feels as though he can breathe easier. Prescription for dexamethasone taper dose was sent to the pharmacy-patient reports that dexamethasone is the only medication that helps his exacerbations. Supportive measures were discussed with the patient and they voiced understanding discharge instructions and agrees to treatment plan. Return precautions reviewed Differential Diagnosis Differential diagnosis: Likely upper respiratory infection, otitis media, sinusitis, viral infection, bronchitis, influenza, pharyngitis and other (COVID, asthma exacerbation) Discharge Plan Discharge Clinical Impression: Asthma exacerbation Qualifiers: Asthma severity: unspecified severity Asthma persistence: unspecified Qualified Code(s): J45.901 - Unspecified asthma with (acute) exacerbation Patient Disposition: Home Condition: Stable Instructions: Antibiotic Form, Asthma (ED) Additional Instructions: DuoNeb treatment was given in the clinic today. Take prescription medications only as [id number] Dosepak Increase fluids and stay well hydrated May take Tylenol or motrin as directed on bottle for pain/fever May use Flonase 1 spray in each nare daily May take OTC antihistamines such as Zyrtec or Claritin daily as directed on bottle May apply Vicks vapor rub to chest to open sinuses Sinus rinses for congestion Cepacol spray, cough drops, throat lozenges, warm tea with honey/lemon, gargle salt water to soothe throat BRAT diet for diarrhea Clear liquids x 24 hours then advance as tolerated for nausea/vomiting Go to the ED if you develop a worsening in your condition- high fever not controlled by Tylenol or Motrin, dehydration, weakness, lethargy, shortness of breath, or chest pain. Follow up with your PCP in 3-5 days if symptoms persist. Patient Language: Malaysian Prescriptions: New dexamethasone [TaperDex] 1.5 mg (21 tabs) tablets,dose pack See Rx Instructions .ROUTE .COMPLEX Qty: 21 0RF Rx Instructions: orally per package directions No Action albuterol sulfate 2.5 mg /3 mL (0.083 %) solution for nebulization 2.5 mg INHALATION Q4H PRN (Reason: shortness of breath or wheezing) Qty: 90 0RF atorvastatin 10 mg Tablet 10 mg PO DAILY trazodone 50 mg tablet 50 mg PO DAILY loratadine 10 mg tablet 10 mg PO DAILY budesonide-formoterol [Symbicort] 160-4.5 mcg/actuation HFA aerosol inhaler See Rx Instructions .ROUTE .COMPLEX Rx Instructions: as prescribed Spiriva Respimat 1.25 mcg/actuation mist See Rx Instructions .ROUTE .COMPLEX Rx Instructions: as prescribed montelukast 10 mg tablet fluticasone propionate 50 mcg/actuation spray,suspension INTRANASAL albuterol sulfate 90 mcg/actuation Hfa Aerosol Inhaler 2 puff INHALATION QID PRN (Reason: Shortness Of Breath Or Wheezing) ipratropium-albuterol 0.5 mg-3 mg(2.5 mg base)/3 mL solution for nebulization 3 ml INHALATION Q4-6H PRN (Reason: Shortness Of Breath) albuterol sulfate 2.5 mg /3 mL (0.083 %) solution for nebulization 2.5 mg inhalation Q4H PRN (Reason: shortness of breath or wheezing) Qty: 75 0RF Follow-up/Referrals: PHYSICIAN NOT ON STAFF,NONSTAFF [Primary Care Provider] Time of Disposition: 11:35 Quality NIHSS Nursing Documentation ED NIHSS nursing documentation: reviewed/agree
[2025-01-14] MEDS: IPRATROPIUM 0.5 MG/ALBUTEROL SULFATE 2.5 MG (BASE) AMPUL.NEB 3 ML INHALATION (11:29)
--- OUTSIDE RECORDS SUMMARY | 2025-01-14 14:09 | XMS_ITS | Clinical Summary ---
Author Organization [employer] [facility] Address [address] Rojo: Epic Prelude ADT MARTIN LOPEZ TATI [address] Care Team Providers Care Dado Operator Name Role Phone Unavailable Primary Care Provider Unavailabl e Social History Tobacco Use Types Packs/Day Years Used Date Smoking Tobacco: Never Assessed Sex and Gender Information Value Date Recorded Sex Assigned at Not on file Legal Sex Male 4:15 AM TOP CAGER Gender Identity Not on file Sexual Orientation [...]
--- OUTSIDE RECORDS SUMMARY | 2025-01-14 14:09 | XMS_ITS | Encounter Summary ---
Author Organization [facility] Address [address] [place] [address] Care Team Providers Care Casing Tester Name Role Phone Unavailable Primary Care Provider Unavailabl e Encounter Details Date Type Department Care Team (Late st Contact Info) Description 11/21/2002 Outpatient Historical [facility] Primary Care - [facility] [address] [place] [address] [address] [place] [address] Devyn Bernal Social History Tobacco Use Types Packs/Day Years Used Date Smoking Tobacco: Never Assessed Sex and Gender Information Value Date Recorded Sex Assigned at Not on file Legal 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
--- OUTSIDE RECORDS SUMMARY | 2025-01-14 14:09 | XMS_ITS | Clinical Summary ---
Author Organization [facility] Address [address] [place] [address] Phone Care Team Providers Care Payroll Accounting Specialist Name Role Phone Eleazar Escamilla MD Primary Care Provider [phone] Allergies No known active allergies Medications Montelukast [...] Comments Blood Pressure 133/79 04/27/2018 9:27 AM HERB DIGGER Pulse 79 04/27/2018 10:14 AM HERB DIGGER Temperature 36.6 C (97.8 F) 04/27/2018 9:27 AM HERB DIGGER Respiratory Rate 18 04/27/2018 10:14 AM HERB DIGGER Oxygen Saturation 98% 04/27/2018 10:14 AM HERB DIGGER Inhaled Oxygen Concentration - - Weight 81.6 kg (180 lb) 04/27/2018 9:27 AM HERB DIGGER Height 177.8 cm (5' 10) 04/27/2018 9:27 AM HERB DIGGER Body Mass Index 25.83 04/27/2018 9:27 AM HERB DIGGER Plan of Treatment Health Maintenance Due Date [...] Insurance MEDICAID [employer] Care Teams Payroll Accounting Specialist Relationship Specialty Start Date End Date Eleazar Escamilla MD [address] [place] [address] PCP - General Internal Medicine 06/11/17
--- OUTSIDE RECORDS SUMMARY | 2025-01-14 14:09 | XMS_ITS | Encounter Summary ---
Author Organization [facility] Address [address] [place] [address] Care Team Providers Care Irrigation Equipment Installer Name Role Phone Unavailable Primary Care Provider Unavailabl e Encounter Details Date Type Department Care Team (Late st Contact Info) Description 02/09/2004 Outpatient Historical [facility] Primary Care - [address] [place] [address] Braxton Deras MD [address] [facility] [address] [place] [address] Social History Tobacco Use Types Packs/Day Years Used Date Smoking Tobacco: Never Assessed Sex and Gender Information Value Date Recorded Sex Assigned at Not on file Legal Sex Male 4:15 AM ACCOUNTS RECEIVABLE SPECIALIST Gender Identity Not on file Sexual Orientation Not on file documented as of this encounter Plan of Treatment Not on file documented as of this encounter Visit Diagnoses Not on filedocumented in this encounter
--- OUTSIDE RECORDS SUMMARY | 2025-01-14 14:09 | XMS_ITS | Encounter Summary ---
Author Organization [facility] Address [address] [place] [address] Phone Care Team Providers Care Vacuum Form Operator Name Role Phone Eleazar Escamilla MD Primary Care Provider Fredy Bowden MD Primary Care Provide r Ivana Archer NP Unavailable [phone] Americo Martinez MD Unavailable Norma Garcia MD PhD Unavailable [phone] Cassy Sigala MA Unavailable Encounter Details Date [...] on file Legal Sex Male 1:13 AM PARTS WASHER Gender Identity Not on file Sexual Orientation [...] documented as of this encounter Care Teams Vacuum Form Operator Relationship Specialty Start Date End Date Eleazar Escamilla MD [address] [place] [address] PCP - General 08/15/16 07/09/22 [place] [address] [facility] [address] [place] [address] PCP - General Family Medicine 07/10/22 Ivana Archer, [address] [place] [address] Nurse Practitioner Pulmonary Disease 07/10/22 Americo Martinez MD [address] [place] [address] [address] [place] [address] Consulting Physician Gastroenterology 10/09/22 Norma Garcia MD PhD [address] [place] [address] [address] [place] [address] Consulting Physician Allergy and Immunology 10/09/22 Cassy Sigala MA [address] [place] [address] [address] [place] [address] ACO Care Siderographer 06/05/24 06/05/24 documented as of this encounter
--- OUTSIDE RECORDS SUMMARY | 2025-01-14 14:09 | XMS_ITS | Encounter Summary ---
Author Organization [facility] Address [address] [place] [address] Care Team Providers Care Panama Hat Blocker Name Role Phone Unavailable Primary Care Provider Unavailabl e Encounter Details Date Type Department Care Team (Late st Contact Info) Description 02/12/2002 Outpatient Historical [facility] Primary Care - [facility] [address] [place] [address] [address] [place] [address] Devyn Bernal Social History Tobacco Use Types Packs/Day Years Used Date Smoking Tobacco: Never Assessed Sex and Gender Information Value Date Recorded Sex Assigned at Not on file Legal Sex Male 4:15 AM VOLUNTEER SERVICES DIRECTOR Gender Identity Not on file Sexual Orientation Not on file documented as of this encounter Plan of Treatment Not on file documented as of this encounter Visit Diagnoses Not on filedocumented in this encounter
--- OUTSIDE RECORDS SUMMARY | 2025-01-14 14:09 | XMS_ITS | Encounter Summary ---
Author Organization [facility] Address [address] [place] [address] Care Team Providers Care Granite Fabricator Name Role Phone Unavailable Primary Care Provider Unavailabl e Encounter Details Date Type Department Care Team (Late st Contact Info) Description 06/24/2001 Outpatient Historical [facility] Primary Care - [facility] [address] [place] [address] [address] [place] [address] Devyn Bernal Social History Tobacco Use Types Packs/Day Years Used Date Smoking Tobacco: Never Assessed Sex and Gender Information Value Date Recorded Sex Assigned at Not on file Legal Sex Male 4:15 AM GUEST SERVICE AIDE Gender Identity Not on file Sexual Orientation Not on file documented as of this encounter Plan of Treatment Not on file documented as of this encounter Visit Diagnoses Not on filedocumented in this encounter
--- OUTSIDE RECORDS SUMMARY | 2025-01-14 14:09 | XMS_ITS | Encounter Summary ---
Author Organization [facility] Address [address] [place] [address] Care Team Providers Care Video Game Creator Name Role Phone Unavailable Primary Care Provider Unavailabl e Encounter Details Date Type Department Care Team (Late st Contact Info) Description 10/11/2001 Outpatient Historical [facility] Primary Care - [facility] [address] [place] [address] [address] [place] [address] Dveyn Bernal Social History Tobacco Use Types Packs/Day Years Used Date Smoking Tobacco: Never Assessed Sex and Gender Information Value Date Recorded Sex Assigned at Not on file Legal Sex Male 4:15 AM PLANNING SPECIALIST Gender Identity Not on file Sexual Orientation Not on file documented as of this encounter Plan of Treatment Not on file documented as of this encounter Visit Diagnoses Not on filedocumented in this encounter
--- OUTSIDE RECORDS SUMMARY | 2025-01-14 14:09 | XMS_ITS | Encounter Summary ---
Author Organization [facility] Address [address] [place] [address] Care Team Providers Care Education And Development Manager Name Role Phone Unavailable Primary Care Provider Unavailabl e Encounter Details Date Type Department Care Team (Late st Contact Info) Description 07/24/2002 Outpatient Historical [facility] Primary Care - [facility] [address] [place] [address] [address] [place] [address] Devyn Bernal Social History Tobacco Use Types Packs/Day Years Used Date Smoking Tobacco: Never Assessed Sex and Gender Information Value Date Recorded Sex Assigned at Not on file Legal Sex Male 4:15 AM TOUR COORDINATOR Gender Identity Not on file Sexual Orientation Not on file documented as of this encounter Plan of Treatment Not on file documented as of this encounter Visit Diagnoses Not on filedocumented in this encounter
--- OUTSIDE RECORDS SUMMARY | 2025-01-14 14:09 | XMS_ITS | Clinical Summary ---
Author Organization [facility] Address [address] [place] [address] Care Team Providers Care Core Microarchitect Name Role Phone Unavailable Primary Care Provider Unavailabl e Source Comments [facility],non-owned Affiliates and Associated Physician Practices is amultiple site organization consisting of ambulatory clinics and hospital sitesin [place], [place], [place] and [place]. This disclosure is being madepursuant to the Care Everywhere program and may not contain all information available regarding this patient. Last updated 17.[facility] Social History Tobacco Use Types Packs/Day Years [...] patient's age to complete this topic Insurance [facility]
--- OUTSIDE RECORDS SUMMARY | 2025-01-14 14:09 | XMS_ITS | Clinical Summary ---
Author Organization [facility] Address [address] [place] [address] Care Team Providers Care Blogs Manager Name Role Phone Fredy Bowden MD Primary Care Provide r Ivana Archer NP Unavailable Americo Martinez MD Unavailable Norma Garcia MD PhD Unavailable [phone] Allergies Active Allergy Reactions Criticality Noted Date Comments Milk Diarrhea Low 08/19/2018 Penicillins Diarrhea Low 09/15/2022 Medications ibuprofen (ADVIL,MOTRIN) 600 mg tablet Take 1 tablet (600 mg total) by mouth every 8 (eight) hours 01/01/20 18 Active multivit-mineral s/folic acid (CENTRUM ADULTS ORAL) [...] day 16 g 3 12/19/19 24 Active budesonide-formo teroL (Symbicort) 160-4.5 mcg/actuation inhalerIndicatio [...] spasms 60 tablet 2 04/18/19 25 Active Spiriva Respimat 1.25 mcg/actuation inhaler Inhale 2 puffs daily 4 g 11 05/22/19 25 Active loratadine (CLARITIN) 10 mg tabletIndication s:Seasonal allergic rhinitis due to pollen TAKE 1 TABLET BY MOUTH EVERY DAY 100 tablet 1 08/14/19 25 Active albuterol HFA (PROVENTIL HFA,VENTOLIN HFA,PROAIR HFA) 90 mcg/actuation inhaler INHALE 2 PUFFS BY MOUTH EVERY 4 HOURS NEEDED FOR WHEEZING 18 g 5 11/06/19 25 Active predniSONE (DELTASONE) 10 mg tabletIndication s:Moderate persistent asthma with acute exacerbation Take 5 tabs (50mg) daily for 2 days, then take 4 tabs (40mg) daily for 2 days. Continue to decrease by 1 tab (10mg) every 2 days until gone. 30 tablet 12/30/19 25 025 Active Problems Problem Noted Date Diagnosed Date [...] Encounters Date Type Department Care Team Description 12/29/2024 2:15 PM CDT Office Visit [facility] at [address] [place] [phone] India Russell NP Moderate persistent asthma with acute exacerbation (Primary Dx) 12/24/2024 Telephone [facility] [address] [place] [phone] Fredy Bowden MD from Last 3 Months Immunizations Immunization Administration [...] Used Date Smoking Tobacco: Former Cigarettes 2 23.8 S tarted: 2002 Smokeless Tobacco: Never Tobacco Cessation:Counseling Given: No Alcohol Use Standard Drinks/Week Comments No 0 [...] on file Legal Sex Male 1:13 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..] Completed 10/10/2023 Hepatitis C Screening Completed 10/10/2023 HPV Vaccines [...] 3:00 PM CDT 10/10/2023 5:16 PM CDT us Fredy Bowden MD LAB MICROBIOLOGY - NERAL ORDERABLES Final Result [facility] [address] [address] [place] [address] * COLONOSCOPY (08/07/2022 7:30 AM CDT) Anatomical Region Laterality Modality Other Narrative Procedure Note Americo Martinez MD - 08/07/2022 7:[address] [facility] Patient Name: Reji Aj Procedure Date: 08/07/2022 7:30 AM Date of : 1980 Admit Type: Outpatient Age: 41 Gender: Male Attending MD: Americo Martinez M.D. Room: [facility] ENDOSCOPY ROOM 3 Note Status: Finalized Patient Profile: This is a 41 year old male h/o asthma, HLD,scoliosis here for colonoscopy for evaluation of rectalbleeding and iron deficiency without anemia. [id number] with some benign polyps per patient. was [...] procedure were verified by the physician, the health professional and the darkroom technician in the endoscopy suite. Mental Status [...] scope was passed under direct vision. TheColonoscope [id number] was introduced through the anus and advanced [...] 7:30 AM Procedure Code(s): --- Professional --- 63776, Colonoscopy, flexible; with biopsy, single or multiple --- Technical --- 62678, Colonoscopy, flexible; with biopsy, single or multiple Diagnosis Code(s): --- Professional --- K64.8, Other hemorrhoids K62.89, Other specified diseases of anus and rectum K62.5, Hemorrhage of anus and rectum D50.9, Iron deficiency anemia, unspecified --- Technical --- K64.8, Other hemorrhoids K62.89, Other specified diseases of anus and rectum K62.5, Hemorrhage of anus and rectum D50.9, Iron deficiency anemia, unspecified CPT copyright 2020 [employer]. All rights reserved. The codes documented in this report are preliminary and upon mangle press catcher reviewmay be revised to meet current compliance requirements. Recognized by the [employer] for promoting quality in endoscopy Americo Martinez MD ENDOSCOPY PROCEDURES Final Resul t from Last 3 Months or Most Recently Relevant to Health Maintenance Insurance [facility] Member Subscriber Plan / Payer (Ef fective 2022-Present) Name:Aj Reji Sveta Relation to Subscriber:Self Name:Reji Aj Payer ID:[id number] (NAIC) Group ID:Not on file Type:MEDICAID RISK OTHER Address: ATTN: CLAIMS DEPT [address] [facility] [place] [phone] Advance Directives For more information, please contact: [phone] * Full Code (Latest Code Status on File) Date Activated Date Inactivated Comments 08/07/2022 7:31 AM 08/07/2022 1:39 PM * Full Code Date Activated Date Inactivated Comments 08/07/2022 7:31 AM 08/07/2022 7:31 AM Care Teams Blogs Manager Relationship Specialty [place] [id number] [address] PCP - General Family Medicine 07/10/22 Ivana Archer NP [address] [place] [address] Nurse Practitioner Pulmonary Disease 07/10/22 Americo Martinez MD [address] [place] [address] [address] [address] Consulting Physician Gastroenterology 10/09/22 Norma Garcia MD PhD [address] [place] [address] [address] [place] [address] Consulting Physician Allergy and Immunology 10/09/22
--- OUTSIDE RECORDS SUMMARY | 2025-01-14 14:09 | XMS_ITS | Encounter Summary ---
Author Organization [facility] Address 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
--- OUTSIDE RECORDS SUMMARY | 2025-01-14 14:09 | XMS_ITS | Encounter Summary ---
Author Organization [facility] Address [address] [place] [address] Care Team Providers Care Cloud Subject Matter Expert Name Role Phone Unavailable Primary Care Provider Unavailabl e Encounter Details Date Type Department Care Team (Late st Contact Info) Description 04/22/2003 Outpatient Historical [facility] Primary Care - [facility] [address] [place] [address] [address] [place] [address] Devyn Bernal Social History Tobacco Use Types Packs/Day Years Used Date Smoking Tobacco: Never Assessed Sex and Gender Information Value Date Recorded Sex Assigned at Not on file Legal 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
== END 2025-01-14 11:44 | disposition home or self-care (01) ==
PROVIDERS: Emergency Provider Nurse Practitioner Family
DX: J45.901 Unspecified asthma with (acute) exacerbation (principal); E78.00 Pure hypercholesterolemia, unspecified; G71.00 Muscular dystrophy, unspecified; Z87.891 Personal history of nicotine dependence
CPT/HCPCS: 94640; 99213; G0463

== ENCOUNTER 2025-01-24 08:53 | Emergency (ER) | payer OTHER, SELFPAY ==
--- OUTSIDE RECORDS SUMMARY | 2025-01-24 08:58 | XMS_ITS | Clinical Summary ---
Author Organization [facility] Address [address] [place] [address] Phone Care Team Providers Care Filter Tank Tender Name Role Phone Eleazar Escamilla MD Primary Care Provider [phone] Allergies No known active allergies Medications Montelukast [...] Comments Blood Pressure 133/79 04/27/2018 9:27 AM AIRPORT SCREENER Pulse 79 04/27/2018 10:14 AM AIRPORT SCREENER Temperature 36.6 C (97.8 F) 04/27/2018 9:27 AM AIRPORT SCREENER Respiratory Rate 18 04/27/2018 10:14 AM AIRPORT SCREENER Oxygen Saturation 98% 04/27/2018 10:14 AM AIRPORT SCREENER Inhaled Oxygen Concentration - - Weight 81.6 kg (180 lb) 04/27/2018 9:27 AM AIRPORT SCREENER Height 177.8 cm (5' 10) 04/27/2018 9:27 AM AIRPORT SCREENER Body Mass Index 25.83 04/27/2018 9:27 AM AIRPORT SCREENER Plan of Treatment Health Maintenance Due Date [...] Insurance MEDICAID [employer] Care Teams Filter Tank Tender Relationship Specialty Start Date End Date Eleazar Escamilla MD [address] [place] [address] PCP - General Internal Medicine 06/11/17
--- OUTSIDE RECORDS SUMMARY | 2025-01-24 08:58 | XMS_ITS | Encounter Summary ---
Author Organization [facility] Address [address] [place] [address] Care Team Providers Care Clerical Grader Name Role Phone Unavailable Primary Care Provider Unavailabl e Encounter Details Date Type Department Care Team (Late st Contact Info) Description 11/21/2002 Outpatient Historical [facility] Primary Care - [facility] [address] [place] [address] [address] [place] [address] Devyn Bernal Social History Tobacco Use Types Packs/Day Years Used Date Smoking Tobacco: Never Assessed Sex and Gender Information Value Date Recorded Sex Assigned at Not on file Legal Sex Male 4:15 AM SCALLOPER Gender Identity Not on file Sexual Orientation Not on file documented as of this encounter Plan of Treatment Not on file documented as of this encounter Visit Diagnoses Not on filedocumented in this encounter
--- OUTSIDE RECORDS SUMMARY | 2025-01-24 08:58 | XMS_ITS | Encounter Summary ---
Author Organization [facility] Address [address] [place] [address] Care Team Providers Care Blackjack Pit Boss Name Role Phone Unavailable Primary Care Provider Unavailabl e Encounter Details Date Type Department Care Team (Late st Contact Info) Description 02/09/2004 Outpatient Historical [facility] Primary Care - [address] [facility] [address] [place] [address] Braxton Deras MD [address] [facility] [address] [place] [address] Social History Tobacco Use Types Packs/Day Years Used Date Smoking Tobacco: Never Assessed Sex and Gender Information Value Date Recorded Sex Assigned at Not on file Legal Sex Male 4:15 AM JACK PRIZER Gender Identity Not on file Sexual Orientation Not on file documented as of this encounter Plan of Treatment Not on file documented as of this encounter Visit Diagnoses Not on filedocumented in this encounter
--- OUTSIDE RECORDS SUMMARY | 2025-01-24 08:58 | XMS_ITS | Encounter Summary ---
Author Organization [facility] Address [address] [place] [address] Care Team Providers Care Pet Handler Name Role Phone Unavailable Primary Care Provider Unavailabl e Encounter Details Date Type Department Care Team (Late st Contact Info) Description 07/03/2003 Outpatient Historical [facility] Primary Care - [facility] [address] [place] [address] [address] [place] [address] Devyn Bernal Social History Tobacco Use Types Packs/Day Years Used Date Smoking Tobacco: Never Assessed Sex and Gender Information Value Date Recorded Sex Assigned at Not on file Legal Sex Male 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
--- OUTSIDE RECORDS SUMMARY | 2025-01-24 08:58 | XMS_ITS | Encounter Summary ---
Author Organization [facility] Address [address] [place] [address] Care Team Providers Care It Security Analyst Name Role Phone Unavailable Primary Care Provider Unavailabl e Encounter Details Date Type Department Care Team (Late st Contact Info) Description 04/22/2003 Outpatient Historical [facility] Primary Care - [facility] [address] [place] [address] [address] [place] [address] Devyn Bernal Social History Tobacco Use Types Packs/Day Years Used Date Smoking Tobacco: Never Assessed Sex and Gender Information Value Date Recorded Sex Assigned at Not on file Legal Sex Male 4:15 AM DISTRICT CAPTAIN Gender Identity Not on file Sexual Orientation Not on file documented as of this encounter Plan of Treatment Not on file documented as of this encounter Visit Diagnoses Not on filedocumented in this encounter
--- OUTSIDE RECORDS SUMMARY | 2025-01-24 08:58 | XMS_ITS | Encounter Summary ---
Author Organization [facility] Address [address] [place] [address] Care Team Providers Care Ice Cream Dipper Name Role Phone Unavailable Primary Care Provider Unavailabl e Encounter Details Date Type Department Care Team (Late st Contact Info) Description 07/24/2002 Outpatient Historical [facility] Primary Care - [facility] [address] [place] [address] [address] [place] [address] Devyn Bernal Social History Tobacco Use Types Packs/Day Years Used Date Smoking Tobacco: Never Assessed Sex and Gender Information Value Date Recorded Sex Assigned at Not on file Legal Sex Male 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
--- OUTSIDE RECORDS SUMMARY | 2025-01-24 08:58 | XMS_ITS | Encounter Summary ---
Author Organization [facility] Address [address] [place] [address] Care Team Providers Care Ground Helper Street Railway Name Role Phone Unavailable Primary Care Provider Unavailabl e Encounter Details Date Type Department Care Team (Late st Contact Info) Description 02/12/2002 Outpatient Historical [facility] Primary Care - 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
--- OUTSIDE RECORDS SUMMARY | 2025-01-24 08:58 | XMS_ITS | Clinical Summary ---
Author Organization [facility] Address [address] 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
--- OUTSIDE RECORDS SUMMARY | 2025-01-24 08:58 | XMS_ITS | Data Portability ---
Author Organization [facility] FELICITASJose Argueta Address [address] [place] [address] Care Team Providers Care Clothing Examiner Name Role Phone ELEAZAR SIMMONS Primary Care Provider [phone] Assessment No assessment recorded. Plan of Treatment Reminders Order Date Submit Date Provider Last Modified By Organization Details Last Modified Time Details Appointments None recorded . Lab respirat ory allergen panel - [facility] c 2022 023 [facility], [address] [place] [address] [place], [address], 3 03:06:34 Referral sleep medicine referral 2021 022 [email or web address] Not available 3 13:44:[address] referral - Please contact patient to schedule appointm ent. Thank you 2021 022 STEFANI Not available 2 09:24:58 Procedures home sleep testing (PROC) 2022 023 [facility], [address], [place], [address], 3 15:07:09 Surgeries None recorded . Imaging oximetry monitori wale sutton 2022 023 [facility], [address], [place], [address], 3 15:33:50 PFT, complete - with post BD spiromet ry 2022 023 STEFANI Yañez (Radiology), [address], [place], [address], 3 13:17:54 Medication Orders Spiriva Respimat 1.25 mcg/actu ation solution for inhalati on [address] [id number], [address], [place], [place], [id number], 3 16:14:42 Belsomra 10 mg tablet [address] [facility]23319, [address], [place], [place], [id number], 3 11:49:13 Wixela Inhub 500 mcg-50 mcg/dose powder for inhalati on 2022 023 [facility]03424, [address], [place], [place], [id number], 3 12:47:20 ipratrop ium 0.5 mg-albut agapito 3 mg (2.5 mg base)/3 mL nebuliza tion soln 2022 023 [facility]46341, [address], [place], [place], [id number], 3 12:47:19 ipratrop ium 0.5 mg-albut agapito 3 mg (2.5 mg base)/3 mL nebuliza tion soln 2021 022 [facility] #58421, [address], [place], [place], [id number], 2 12:46:31 Advair Diskus 500 mcg-50 mcg/dose powder for inhalati on [address] [facility]65698, [address], [place], [place], [id number], 12:41:34 predniso ne 20 mg tablet 2021 [email or web address] [facility]76325, [address], [place], [place], [id number], 12:15:35 Zithroma x Z-Dickson 250 mg tablet 2021 STEFANI [facility]59478, [address], [place], [place], [id number], 12:46:30 amoxicil rom 500 mg tablet 2021 [facility]66118, [address], [place], [place], [id number], 12:26:42 Patient TargetsNo targets recorded. Patient Instructions Encounter Date Encounter Id Patient Instructions Last Modified By Organization Details Last Modified Time 07/15/2021 [id number] learning about healthy weight nsuthan Not available 07/15/2021 11:15:29 A healthy lifestyle: care instructions nsuthan Not available 07/15/2021 11:15:29 f/u in 6 month nsuthan Not available 0 07/15/2021 11:15:42 01/16/2022 [id number] f/u in 4 month nsuthan Not available 01/16/2022 11:28:12 02/27/2022 [id number] keep f/u nsuthan Not available 02/27 14:20:50 05/24/2022 [id number] insomnia: care instructions Not available 05/24/2022 14:35:57 08/23/2022 [id number] insomnia: care instructions Not available 08/23/2022 12:07:55 Reason for Referral 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 Thank you Referring Physician: Janeth Simmons, Internal Medicine, Encounter Date: 07/15/2021 Sleep Medicine Referral for Insomnia Referring Physician: Janeth Simmons, Internal Medicine, Encounter Date: 01/16/2022 Results Created Date Observation Date Name Description Value Unit Range Abnormal Flag Note LastModifiedBy Organization Detail LastModifiedTime 07/09/19 22 07/09/2021 COMP. METAB OLIC PANEL (14) glucose 93 mg/dL 65-99 Not Available [facility] ([facility]) [address] [place], [address], 07/09/2021 09:13:09 07/09/19 22 07/09/2021 COMP. METAB OLIC PANEL (14) BUN 8 mg/dL 6-24 Not Available [facility] ([facility]) [address] [place], [address], 07/09/2021 09:13:09 07/09/19 22 07/09/2021 COMP. METAB OLIC PANEL (14) creatinine 0.78 mg/dL 0.76-1 .27 Not Available [facility] ([facility]) [address] [place], [address], 07/09/2021 09:13:09 07/09/19 22 07/09/2021 COMP. METAB OLIC PANEL (14) eGFR 114 mL/mi n/1.7 3 >59 Not Available [facility] ([facility]) [address] [place], [address], 07/09/2021 09:13:09 07/09/19 22 07/09/2021 COMP. METAB OLIC PANEL (14) BUN/creatini ne ratio 10 9-20 Not Available [facility] ([facility]) [address] [place], [address], 07/09/2021 09:13:09 07/09/19 22 07/09/2021 COMP. METAB OLIC PANEL (14) sodium 141 mmol/ L 134-14 4 Not Available [facility] ([facility]) [address] [place], [address], 07/09/2021 09:13:09 07/09/19 22 07/09/2021 COMP. METAB OLIC PANEL (14) potassium 4.5 mmol/ L 3.5-5. 2 Not Available [facility] ([facility]) [address] [place], [address], 07/09/2021 09:13:09 07/09/19 22 07/09/2021 COMP. METAB OLIC PANEL (14) chloride 105 mmol/ L 96-106 Not Available [facility] ([facility]) [address] [place], [address], 07/09/2021 09:13:09 07/09/19 22 07/09/2021 COMP. METAB OLIC PANEL (14) carbon dioxide, total 21 mmol/ L 20-29 Not Available [facility] ([facility]) [address] [place], [address], 07/09/2021 09:13:09 07/09/19 22 07/09/2021 COMP. METAB OLIC PANEL (14) calcium 9.2 mg/dL 8.7-10 .2 Not Available [facility] ([facility] [address] [facility] [place] [address], 07/09/2021 09:13:09 07/09/19 22 07/09/2021 COMP. METAB OLIC PANEL (14) protein, total 6.7 g/dL 6.0-8. 5 Not Available [facility] ([facility]) [address] [place], [address], 07/09/2021 09:13:09 07/09/19 22 07/09/2021 COMP. METAB OLIC PANEL (14) albumin 4.2 g/dL 4.0-5. 0 Not Available [facility] ([facility]) [address] [place], [address], 07/09/2021 09:13:09 07/09/19 22 07/09/2021 COMP. METAB OLIC PANEL (14) globulin, total 2.5 g/dL 1.5-4. 5 Not Available [facility] ([facility]) [address] [place], [address], 07/09/2021 09:13:09 07/09/19 22 07/09/2021 COMP. METAB OLIC PANEL (14) A/G ratio 1.7 1.2-2. 2 Not Available [facility] ([facility]) [address] [place], [address], 07/09/2021 09:13:09 07/09/19 22 07/09/2021 COMP. METAB OLIC PANEL (14) bilirubin, total 0.3 mg/dL 0.0-1. 2 Not Available [facility] ([facility]) [address] [place], [address], 07/09/2021 09:13:09 07/09/19 22 07/09/2021 COMP. METAB OLIC PANEL (14) alkaline phosphatase 141 IU/L 44-121 above high normal Not Available [facility] ([facility]) [address] [place], [address], 07/09/2021 09:13:09 07/09/19 22 07/09/2021 COMP. METAB OLIC PANEL (14) AST (SGOT) 30 IU/L 0-40 Not Available [facility] ([facility]) [address] [place], [address], 07/09/2021 09:13:09 07/09/19 22 07/09/2021 COMP. METAB OLIC PANEL (14) ALT (SGPT) 35 IU/L 0-44 Not Available [facility] ([facility]) [address] [place], [address], 07/09/2021 09:13:09 07/09/19 22 07/09/2021 LIPID PANEL cholesterol, total 169 mg/dL 100-19 9 Not Available [facility] ([facility]) [address] [place], [address], 07/09/2021 09:13:10 07/09/19 22 07/09/2021 LIPID PANEL triglyceride s 111 mg/dL 0-149 Not Available [facility] ([facility]) [address] [facility], [place], [address], 07/09/2021 09:13:10 07/09/19 22 07/09/2021 LIPID PANEL HDL cholesterol 43 mg/dL >39 Not Available [facility] [address] [facility], [place], [address], 07/09/2021 09:13:10 07/09/19 22 07/09/2021 LIPID PANEL VLDL cholesterol elvia 20 mg/dL 5-40 Not Available [facility] ([facility]) [address] [facility], [place], [address], 07/09/2021 09:13:10 07/09/19 22 07/09/2021 LIPID PANEL LDL chol calc ([facility]) 106 mg/dL 0-99 above high normal Not Available [facility] ([facility]) [address] [facility], [place], [address], 07/09/2021 09:13:10 07/09/19 22 07/09/2021 LIPID PANEL comment: INFORMATION ASSURANCE SPECIALIST Not Available [facility] ([facility]) [address] [facility], [place], [address], 07/09/2021 09:13:10 05/25/19 23 05/24/2022 ALLER GENS W/TOT AL IGE AREA 8 class description Commen t Level s of Speci fic IgE Class Descr iptio n of Class ----- ----- ----- ----- ----- -- ----- ----- ----- ----- ----- < 0.10 0 Negat aaliyah 0.10 - 0.31 0/I Equiv ocal/ Low 0.32 - 0.55 I Low 0.56 - 1.40 II Moder ate 1.41 - 3.90 III High 3.91 - 19.00 IV Very High 19.01 - 100.0 0 V Very High >100. 00 Very High Not Available [facility] ([facility]) [address] [place], [address], 05/28/2022 03:06:34 05/25/19 23 05/27/2022 ALLER GENS W/TOT AL IGE AREA 8 immunoglobul in E, total 281 IU/mL 6-495 Not Available [facility] ([facility]) [address] [place], [address], 05/28/2022 03:06:34 05/25/19 23 05/27/2022 ALLER GENS W/TOT AL IGE AREA 8 Q479-QsD D pteronyssinu s 0.25 kU/L class0 /I abnormal Not Available [facility] ([facility]) [address] [place], [address], 05/28/2022 03:06:34 05/25/19 23 05/27/2022 ALLER GENS W/TOT AL IGE AREA 8 I901-ZbW D farinae 0.23 kU/L class0 /I abnormal Not Available [facility] ([facility]) [address] [place], [address], 05/28/2022 03:06:34 05/25/19 23 05/27/2022 ALLER GENS W/TOT AL IGE AREA 8 B306-YbW CAT dander 22.70 kU/L classv abnormal Not Available [facility] ([facility]) [address] [place], [address], 05/28/2022 03:06:34 05/25/19 23 05/27/2022 ALLER GENS W/TOT AL IGE AREA 8 H567-QbC dog dander 13.50 kU/L classi v abnormal Not Available [facility] ([facility]) [address] [place], [address], 05/28/2022 03:06:34 05/25/19 23 05/27/2022 ALLER GENS W/TOT AL IGE AREA 8 n553-CrW bermuda grass <0.10 kU/L class0 Not Available [facility] ([facility]) [address] [place], [address], 05/28/2022 03:06:34 05/25/19 23 05/27/2022 ALLER GENS W/TOT AL IGE AREA 8 h013-ErA charbel grass 0.79 kU/L classi i abnormal Not Available [facility] ([facility]) [address] [place], [address], 05/28/2022 03:06:34 05/25/19 23 05/27/2022 ALLER GENS W/TOT AL IGE AREA 8 L035-CkI cockroach, georgian <0.10 kU/L class0 Not Available [facility] ([facility]) [address] [place], [address], 05/28/2022 03:06:34 05/25/19 23 05/27/2022 ALLER GENS W/TOT AL IGE AREA 8 P154-YzA penicillium chrysogen 1.20 kU/L classi i abnormal Not Available [facility] ([facility]) [address] [place], [address], 05/28/2022 03:06:34 05/25/19 23 05/27/2022 ALLER GENS W/TOT AL IGE AREA 8 I942-NxC cladosporium herbarum 1.50 kU/L classi ii abnormal Not Available [facility] ([facility]) [address] [place], [address], 05/28/2022 03:06:34 05/25/19 23 05/27/2022 ALLER GENS W/TOT AL IGE AREA 8 G648-XmI aspergillus fumigatus 2.05 kU/L classi ii abnormal Not Available [facility] ([facility]) [address] [facility], [place], [address], 05/28/2022 03:06:34 05/25/19 23 05/27/2022 ALLER GENS W/TOT AL IGE AREA 8 I066-DaU alternaria alternata 7.09 kU/L classi v abnormal Not Available [facility] ([facility]) [address] [facility], [place], [address], 05/28/2022 03:06:34 05/25/19 23 05/27/2022 ALLER GENS W/TOT AL IGE AREA 8 G035-OnP maple/box elder <0.10 kU/L class0 Not Available [facility] ([facility]) [address] [facility], [place], [address], 05/28/2022 03:06:34 05/25/19 23 05/27/2022 ALLER GENS W/TOT AL IGE AREA 8 P572-McK cedar, mountain 0.67 kU/L classi i abnormal Not Available [facility] ([facility]) [address] [facility], [place], [address], 05/28/2022 03:06:34 05/25/19 23 05/27/2022 ALLER GENS W/TOT AL IGE AREA 8 T173-WeU oak, white 0.11 kU/L class0 /I abnormal Not Available [facility] ([facility]) [address] [place], [address], 05/28/2022 03:06:34 05/25/19 23 05/27/2022 ALLER GENS W/TOT AL IGE AREA 8 C283-CjS elm, albanian 0.18 kU/L class0 /I abnormal Not Available [facility] ([facility]) [address] [place], [address], 05/28/2022 03:06:34 05/25/19 23 05/27/2022 ALLER GENS W/TOT AL IGE AREA 8 Y433-DcV maple leaf sycamore <0.10 kU/L class0 Not Available [facility] ([facility]) [address] [place], [address], 05/28/2022 03:06:34 05/25/19 23 05/27/2022 ALLER GENS W/TOT AL IGE AREA 8 B268-HaA cottonwood <0.10 Not Available [facility] ([facility] [address] [place], [address], 05/28/2022 03:06:34 05/25/19 23 05/27/2022 ALLER GENS W/TOT AL IGE AREA 8 V139-PoE helen, white 0.23 kU/L class0 /I abnormal Not Available [facility] ([facility]) [address] [place], [address], 05/28/2022 03:06:34 05/25/19 23 05/27/2022 ALLER GENS W/TOT AL IGE AREA 8 I572-TfZ walnut 1.58 kU/L classi ii abnormal Not Available [facility] ([facility]) [address] [place], [address], 05/28/2022 03:06:34 05/25/19 23 05/27/2022 ALLER GENS W/TOT AL IGE AREA 8 Z684-EuK pecan, hickory 1.82 kU/L classi ii abnormal Not Available [facility] ([facility]) [address] [place], [address], 05/28/2022 03:06:34 05/25/19 23 05/27/2022 ALLER GENS W/TOT AL IGE AREA 8 M732-OwR white mulberry <0.10 kU/L class0 Not Available [facility] ([facility]) [address] [place], [address], 05/28/2022 03:06:34 05/25/19 23 05/27/2022 ALLER GENS W/TOT AL IGE AREA 8 P990-HpM ragweed, short 0.62 kU/L classi i abnormal Not Available [facility] ([facility]) [address] [facility], [place], [address], 05/28/2022 03:06:34 05/25/19 23 05/27/2022 ALLER GENS W/TOT AL IGE AREA 8 V396-SmS thistle, emirati <0.10 kU/L class0 Not Available [facility] ([facility]) [address] [facility], [place], [address], 05/28/2022 03:06:34 05/25/19 23 05/27/2022 ALLER GENS W/TOT AL IGE AREA 8 C659-ImA pigweed, common <0.10 Not Available [facility] ([facility]) [address] [facility], [place], [address], 05/28/2022 03:06:34 05/25/19 23 05/27/2022 ALLER GENS W/TOT AL IGE AREA 8 K414-RdA rough marshelder 0.42 kU/L classi abnormal Not Available [facility] ([facility]) [address] [facility], [place], [address], 05/28/2022 03:06:34 05/25/19 23 05/27/2022 ALLER GENS W/TOT AL IGE AREA 8 D382-NlH mouse urine 0.11 kU/L class0 /I abnormal Not Available [facility] ([facility]) [address] [facility], [place], [address], 05/28/2022 03:06:34 01/31/20 22 01/27/2022 XR, chest , 2 view No observ ation record ed. mary jane Adams [address] [place], [address], 01/30/2022 11:54:29 06/14/19 23 06/13/2022 home sleep testi ng (PROC ) No observ ation record ed. [facility] [address], [place], [address], 06/29/2022 16:28:49 07/28/19 23 07/26/2022 PFT, compl ete No observ ation record ed. [email or web address] [facility] (Radiology) [address] [place], [address], 07/28/2022 13:28:22 09/01/19 23 08/28/2022 oxime try monit oring overn ight No observ ation record ed. [email or web address] [address] [facility] [address], [address], 09/14/2022 18:28:40 Result Notes None recorded. Problems Name Problem SNOMED Code Status Onset Date Resolution Date Notes Provider Name and Address Organization Details Recorded Time Asthma 522800416 Active Eleazar Simmons MD Attn: [address]y,[address] [place], [address], [facility] 2 11:05:47 Insomnia 398155707 Active Eleazar Simmons MD Attn: Dutch g,[address] [place], [address], [place] [facility] 2 11:05:47 Cramp in lower leg 166296452 Active Eleazar Simmons MD Attn: [address] rey,[address] [place], [address], [place] [facility] 2 11:05:47 Hyperlipide dalia 18140281 Active 2016 Eleazar Simmons MD Attn: uDtch rey,[address] [place], [address], [place] [facility] 2 11:05:47 Smoker 47327838 Completed 201804/26/2020 Eleazar Simmons MD Attn: Dutch rey,[address], [place], [address], [facility] 1 09:42:10 Hiatal hernia 14687919 Active 2021 on cxr -large size Eleazar Simmons MD Attn: Dutch rey,[address], [place], [address], [facility] 2 11:54:28 Problem Notes None recorded. Medical Equipment None Reported. Allergies Allergen ID Allergen Name Allergen Category Reaction Reaction Severity Criticality Documentation Date Start Date Code Code System Note Provider Name and Address Organization Details Recorded Time 10992 cow milk allergeni c extract food,medi cation diarrhea Not available Not available 06/02/2014 15754 5 RxNorm Suki Waters MA null, [place] - [facility] 5 15:45:18 Medications Name Sig Start Date Stop Date Status Note LastModified by Organization Details LastModified Time cyclobenz aprine 10 mg tablet TAKE 1 TABLET(1 0 MG) BY MOUTH EVERY DAY NEEDED FOR MUSCLE SPASMS active Not Available Not Available No t Available amoxicill in 500 mg capsule Take 1 capsule( s) every 8 hours by oral route for 7 days. 11/15 completed Not Available Not Available Not Available Miralax 17 gram/dose oral powder Take 17 g by oral route. 01/16 completed Not Available Not Available Not Available prednison e 10 mg tablet 05/24 completed Not Available Not Available Not Available ipratropi um 0.5 mg-albute rol 3 mg (2.5 mg base)/3 mL nebulizat ion soln active Not Available Not Available Not Available albuterol sulfate 2.5 mg/3 mL (0.083 %) solution for nebulizat ion USE 1 VIAL VIA NEBULIZE R EVERY 6 HOURS NEEDED FOR WHEEZING FOR UP TO 14 DAYS active Not Available Not Available No t Available trazodone 50 mg tablet TAKE 1 TABLET BY MOUTH NIGHTLY NEEDED 08/23 completed Not Available Not Available Not Available atorvasta tin 10 mg tablet TAKE 1 TABLET BY MOUTH EVERY DAY active Not Available Not Available No t Available azithromy becka 250 mg tablet TAKE 2 TABLETS (500 MG) BY ORAL ROUTE ONCE DAILY FOR 1 DAY THEN 1 TABLET (250 MG) BY ORAL ROUTE ONCE DAILY FOR 4 DAYS active Not Available Not Available No t Available meloxicam 15 mg tablet Take 1 tablet every day by oral route with meals. 11/29 completed pt not taking Not Available Not Available Not Available prednison e 20 mg tablet TAKE 2 TABLETS BY MOUTH DAILY FOR 3 DAYS THEN TAKE 1 TABLET BY MOUTH DAILY UNTIL ALL TAKEN 05/24 completed Not Available Not Available Not Available clindamyc in HCl 150 mg capsule 11/25 completed Not Available Not Available Not Available tramadol 50 mg tablet 04/03 completed Not Available Not Available Not Available guaifenes in 100 mg/5 mL oral liquid 07/10 completed Not Available Not Available Not Available amoxicill in 500 mg tablet TAKE 1 TABLET BY MOUTH EVERY 8 HOURS FOR 7 DAYS 02/27 completed Not Available Not Available Not Available trazodone 100 mg tablet TAKE 1 TABLET BY MOUTH EVERY NIGHT AT BEDTIME 11/29 completed pt not taking Not Available Not Available Not Available dicyclomi ne 20 mg tablet TAKE 1 TABLET BY MOUTH TWICE DAILY NEEDED active Not Available Not Available No t Available dexametha sone 4 mg tablet active Not Available Not Available Not Available prednison e 50 mg tablet TK 1 T PO D FOR 5 DAYS 04/26 completed Not Available Not Available Not Available Advair Diskus 250 mcg-50 mcg/dose powder for inhalatio n INHALE 1 PUFF BY MOUTH TWICE DAILY 02/27 completed Not Available Not Available Not Available Advair Diskus 500 mcg-50 mcg/dose powder for inhalatio n Inhale 1 puff twice a day by inhalati on route. active Not Available Not Available No t Available montel[address] st 10 mg tablet TAKE 1 TABLET BY MOUTH EVERY DAY active Not Available Not Available No t Available pravastat in 20 mg tablet Take 1 tablet every day by oral route. 01/12 completed declined to take med Not Available Not Available Not Available ibuprofen 600 mg tablet 04/03 completed Not Available Not Available Not Available methylpre dnisolone 4 mg tablets in a dose pack FOLLOW PACKAGE DIRECTIO NS 02/27 completed Not Available Not Available Not Available albuterol sulfate HFA 90 mcg/actua tion aerosol inhaler INHALE 2 PUFFS BY MOUTH EVERY 4 TO 6 HOURS NEEDED active Not Available Not Available No t Available ipratropi um bromide 42 mcg (0.06 %) nasal spray 11/15 completed Not Available Not Available Not Available cefdinir 300 mg capsule TAKE 1 CAPSULE BY MOUTH TWICE DAILY FOR 10 DAYS. ANTIBIOT IC TO TREAT SINUS INFECTIO N AND BRONCHIT IS. active Not Available Not Available No t Available fluticaso ne propionat e 50 mcg/actua tion nasal spray,rogelio pension SHAKE LIQUID AND USE 1 SPRAY IN EACH NOSTRIL EVERY DAY active Not Available Not Available No t Available loratadin e 10 mg tablet TAKE 1 TABLET BY MOUTH EVERY DAY active Not Available Not Available No t Available amoxicill in 875 mg-potass ium clavulana te 125 mg tablet 07/10 completed Not Available Not Available Not Available Dulcolax (bisacody l) 5 mg tablet,de layed release Take 4 tablets every day by oral route. 01/16 completed Not Available Not Available Not Available Flovent HFA 220 mcg/actua tion aerosol inhaler INHALE 1 PUFF BY MOUTH TWICE DAILY 11/29 completed Not Available Not Available Not Available Symbicort 160 mcg-4.5 mcg/actua tion HFA aerosol inhaler INHALE 2 PUFFS BY MOUTH TWICE DAILY 11/15 completed not using Not Available Not Available Not Available doxepin 6 mg tablet Take by oral route for 30 days. 07/12 completed Not Available Not Available Not Available Aerospan 80 mcg/actua tion HFA aerosol inhaler Inhale 2 puffs twice a day by inhalati on route. 04/03 completed Not Available Not Available Not Available Belsomra 10 mg tablet TAKE 1 TABLET BY MOUTH AT BEDTIME FOR 30 DAYS NEEDED 2022 active Not Available Not Available Not Avai lable Spiriva Respimat 1.25 mcg/actua tion solution for inhalatio n Inhale 2 puffs every day by inhalati on route for 30 days. active Not Available Not Available No t Available fluticaso ne 113 mcg-salme terol 14 mcg/actua tion breath activated powdr INHALE 1 PUFF BY MOUTH TWICE DAILY active Not Available Not Available No t Available Vitals Date Recorded Body height Oxygen saturation Oxygen saturation in Arterial blood by Pulse oximetry Respiratory rate Heart rate Body mass index (BMI) Body weight Body temperature Systolic And Diastolic Provider Name and Address Organization Details Last Updated DateTime 3 180.34 cm 97 % 97 % 14 /min 120 /min 24.3 kg/m2 07721.0 7 g 99.2 [degF] 136/86 mm[Hg] Jennifer Rucker MA [facility] 3 12:18:44 Date Recorded Body height Body mass index (BMI) Body weight Heart rate Body temperature Oxygen saturation Oxygen saturation in Arterial blood by Pulse oximetry Systolic And Diastolic Provider Name and Address Organization Details Last Updated DateTime 2 180.34 cm 28.1 kg/m2 10215.8 6 g 128 /min 98.2 [degF] 97 % 97 % 144/86 mm[Hg] Rosangela Patel MA [facility] 2 10:58:12 Date Recorded Body height Respiratory rate Body temperature Body mass index (BMI) Body weight Oxygen saturation Oxygen saturation in Arterial blood by Pulse oximetry Heart rate Systolic And Diastolic Provider Name and Address Organization Details Last Updated DateTime 3 180.34 cm 16 /min 98.5 [degF] 24.3 kg/m2 36173.0 7 g 98 % 98 % 106 /min 136/83 mm[Hg] Jennifer Rucker MA [facility] 3 11:39:35 Date Recorded Body height Body mass index (BMI) Body weight Heart rate Respiratory rate Body temperature Oxygen saturation Oxygen saturation in Arterial blood by Pulse oximetry Systolic And Diastolic Provider Name and Address Organization Details Last Updated DateTime 2 180.34 cm 26.3 kg/m2 76549.2 4 g 92 /min 14 /min 97.3 [degF] 98 % 98 % 118/82 mm[Hg] Catrachita Moreno MA [facility] 2 11:07:10 Date Recorded Body height Body mass index (BMI) Body weight Heart rate Respiratory rate Body temperature Oxygen saturation Oxygen saturation in Arterial blood by Pulse oximetry Systolic And Diastolic Provider Name and Address Organization Details Last Updated DateTime 2 180.34 cm 26.3 kg/m2 79619.8 g 118 /min 14 /min 97.7 [degF] 96 % 96 % 148/96 mm[Hg] Catrachita Moreno [place] [facility] 2 12:30:10 Social History Question Answer Notes LastModified by Organizat ion Details LastModified Time Tobacco Smoking Status Former Smoker pt has not smoked since 10/2018 Jolie Kris, KATHYA null, [place] [facility] 01/12/2017 08:34:29 Are You Blind Or Do You Have Difficulty Seeing? No Some Information not available 02/27/2022 What Is Your Level Of Caffeine Consumption? Occasional Information not available 07/15/2021 How Much Tobacco Do You Chew? None Information not available 06/28/2016 In The 14 Days Before Symptom Onset, Have You Had Close Contact With A Laboratory-confir med COVID-19 While That Case Was Ill? No Information not available 07/11/2019 In The 14 Days Before Symptom Onset, Have You Had Close Contact With A Person Who Is Under Investigation For COVID-19 While That Person Was Ill? No Information not available 07/11/2019 Have You Been To An Area Known To Be High Risk For COVID-19? No Information not available 07/11/2019 Are You Deaf Or Do You Have Serious Difficulty Hearing? No Information not available 12/29/2020 What Type Of Diet Are You Following? REGULAR Milk Free Information not available 06/28/2016 Which Illicit Or Recreational Drugs Have You Used? Denies Information not available 06/28/2016 Education 12 Information no t available 05/17/2017 What Is The Highest Grade Or Level Of School You Have Completed Or The Highest Degree You Have Received? [id number] Information not available 12/29/2020 Are There Any Guns Present In Your Home? No Information not available 12/17/2018 Marital Status Informatio n not available 05/17/2017 What Was The Date Of Your Most Recent Tobacco Screening? 08/23/2022 [email or web address] Information not available 08/23/2022 What Is Your Relationship Status? Information not available 12/29/2020 Do You Use Your Seat Belt Or Car Seat Routinely? Yes Information not available 12/29/2020 Seat Belts Used Routinely Yes Information not available 12/17/2018 Smoke Alarm In Home Yes Information not available 12/17/2018 Do You Have Smoke And Carbon Monoxide Detectors In Your Home? Yes Information not available 12/29/2020 At What Age Did You Start Smoking Tobacco? 18 Information not available 06/28/2016 How Much Tobacco Do You Smoke? No Information not available 07/15/2021 General Stress Level Medium Information not available 11/15/2017 Do You Use Sunscreen Routinely? No Information not available 12/17/2018 Has Tobacco Cessation Counseling Been Provided? No Information not available 07/15/2021 Sex: Male Functional Status Question Answer Note LastModified by Organizat ion Details LastModified Time Do you use any illicit or recreational drugs? No Information not available 03/09/2021 Do you or have you ever used any other forms of tobacco or nicotine? No Information not available 12/29/2020 What is your level of alcohol consumption? None Information not available 01/16/2022 Do you or have you ever used smokeless tobacco? Never used smokeless tobacco Information not available 12/17/2018 Are you currently employed? No Information not available 12/29/2020 Are you able to care for yourself independently? Yes Information not available 12/29/2020 What is your occupation? Disabled Information not available 06/28/2016 Do you or have you ever used e-cigarettes or vape? Never used electronic cigarettes Information not available 12/17/2018 What is your exercise level? None some Information not available 03/09/2021 Mental Status Question Answer Note LastModified by Organization D etails LastModified Time Do you feel stressed (tense, restless, nervous, or anxious, or unable to sleep at night)? [id number] Information not available 02/27/2022 Family History Relationship Description Onset Age of this Age Resolved Age Notes LastModified by Organization Details LastModified Time Mother Essential hypertension [email or web address] Not available 04/2015 10:11:32 Medical History Condition Response Muscle, Joint, or Bone Problems Y Other Y Depression Y Asthma Y Allergies Y Immunizations Vaccine Type Date Status Note Provider Everette carcamo and Address Organization Details Recorded Time Tdap 7 completed Not Available [facility] 04/12/2019 02:33:29 Influenza, split virus, quadrivalent, preservative 7 completed Not Available [facility] 04/12/2019 02:45:30 pneumococcal polysaccharide PPV23 5 completed Not Available [facility] 04/12/2019 02:29:46 Influenza, split virus, quadrivalent, preservative 5 completed Not Available [facility] 04/12/2019 02:51:04 Past Encounters Encounter ID Performer Location Encounter Start Date Encounter Closed Date Diagnosis/Indication Diagnosis SNOMED-CT Code Diagnosis ICD10 Code Diagnosis IMO Codes Diagnosis Note [id number] [facility] [address] [place] [address] 06/02/2014 15:23:52 06/02/2014 16:26:45 Asthma 183868138 continue same pt needs nebulizer machine arranged Insomnia 987175357 stable on Trazodone Administra tion of pneumococcal vaccine [id number] [facility] [address] [place] [address] 12/28/2014 10:58:23 12/28/2014 14:07:02 Asthma 887582319 J45.909 pt to use Symbicort bid pt to call if cough or problem persists -will give antibiotic Insomnia 822733035 G47.0 9 stable on Trazodone Adult heal th examination 105132410 Z00.00 Administra tion of influenza vaccine 23420886 Z23 Cramp in lower leg 88386 8009 R25.2 with history of muscular dystrophy [id number] [facility] [address] [place] [address] 05/27/2015 08:48:11 05/28/2015 11:02:53 Asthma 338559790 J45.30 with acute bronchitis -continue Augmantin and prednisone pt to use Symbicort bid Insomnia 811224265 G47.0 9 Increase Trazodone Cramp in lower leg 96581 8009 R25.2 with history of muscular dystrophy pt was seeing neuro in the past for muscular dystrophy per pt [id number] Eleazar Simmons MD [facility] (Adult Med) [address] [place] [address] 11/26/2015 09:56:08 11/30/2015 16:48:07 Asthma 261452115 J45.30 with acute bronchitis -continue prednisone pt to use Symbicort bid Add Z dickson Adult heal th examination 048638823 Z00.00 Insomnia 162223827 G47.0 9 continue Trazodone [id number] Eleazar Simmons MD [facility] (Adult Med) [address] [place] [address] 06/28/2016 08:34:13 06/28/2016 13:43:03 Asthma 298712733 J45.30 stable continue Symbicort bid /albuterol prn Insomnia 076493543 G47.0 9 continue Trazodone Administra tion of diphtheria, pertussis, and tetanus vaccine 572782465 Z23 [id number] Eleazar Simmons MD [facility] (Adult Med) [address] [place] [address] 01/12/2017 08:15:30 01/16/2017 17:36:23 Administration of influenza vaccine 72207343 Z23 Asthma 922984153 J45.90 9 with tracheobro nchitiscon tinue prednisone will rx with Z pakcontinu e inhalers Hyperlipidemia 10781686 E78.4 pt declined to take statin medpt is watching diet [facility] [address] [place] [address] 05/17/2017 14:31:01 05/22/2017 14:56:24 Asthma 353869807 J45.909 stablecont inue inhalers Insomnia 471256564 G47.0 9 continue Trazodone Acute sinusitis 95611826 J01.90 keep good hydration Hyperlipidemia 91228198 E78.4 pt declined to take statin medpt is watching diet [id number] [facility] [address] [place] [address] 11/15/2017 14:19:40 11/16/2017 18:01:17 Asthma 530736715 J45.909 pt has frequent wheezing / also smoking few cigaretsAd d floventcon tinue inhalerspt to quit smoking Hyperlipidemia 44361367 E78.4 pt declined to take statin medpt is watching diet Insomnia 199889829 G47.0 9 continue Trazodone [id number] [facility] [address] [place] [address] 04/03/2018 14:11:27 04/04/2018 13:30:52 Hyperlipidemia 97047398 E78.49 declined med / did not do labsfollow ing diet Asthma 596785153 J45.90 9 pt has frequent wheezing / also smoking few cigaretsco ntinue inhalerspt to quit smoking Smoker 55127435 F17.200 Thoracic back pain 10807 8004 M54.6 heat therapy / back exercisesc heck xraymobic daily prn with cyclobenza landen Insomnia 059742685 G47.0 9 continue Trazodone [id number] [facility] [address] [place] [address] 11/29/2018 08:46:31 12/02/2018 09:25:31 Asthma 729988162 J45.31 with bronchitis continue inhalerspt quit smoking a month ago Hyperlipidemia 81370834 E78.49 declined med / did not do labs yetfollowi ng diet Elevated blood-pressure reading without diagnosis of hypertension 621238140 R03.0 possibly due to asthma attack-cristhian l reassess in a wk [id number] [facility] [address] [place] [address] 12/06/2018 09:35:45 12/09/2018 09:51:07 Asthma 620521074 J45.31 with bronchitis which has resolvedco ntinue inhalerspt quit smoking a month ago Hyperlipidemia 22844942 E78.49 declined med / had labs done today -will wait for lab reportfoll owing diet [id number] MD [facility]upa Jerome (Adult Med) [address] [place] [address] 12/17/2018 11:44:50 12/18/2018 10:04:02 Leukocytosis 967569204 D72.829 with h/o steroid rx for asthma and h/o smoking ( quit 11/11) check lab again and will refer to hematologi st if needed Liver func tion tests outside reference range 473392351 R94.5 with hypertrigl yceridemia possibly due to fatty liver.diet and exercise with loosing wt will help with fatty liver [id number] MD [facility] (Adult Med) [address] [place] [address] 07/11/2019 08:19:17 07/15/2019 13:53:51 Asthma 976065663 J45.31 stablecont inue inhalers Hyperlipidemia 89426526 E78.49 healthy diet and exercise discussed with pt [id number] MD [facility]up[facility] Jerome (Adult Med) [address] [place] [address] 04/26/2020 08:16:30 04/27/2020 12:23:50 Asthma 712072638 J45.31 with uri-keep goodcontin ue inhalers Hyperlipidemia 03501996 E78.49 healthy diet and exercise discussed with pt Upper resp iratory infection 79002332 J06.9 keep good hydration [id number] MD Rupa Jerome (Adult Med) [address] [place] [address] 12/29/2020 10:32:10 01/03/2021 09:44:39 Asthma 249894012 J45.31 with uri-keep good hydrationc ontinue inhalers Upper resp iratory infection 98198147 J06.9 keep good hydration/ take antihistam ine - pt to call if problem persists Hyperlipidemia 99561439 E78.49 healthy diet and exercise discussed with pt [id number] MD [facility]up[facility] (Adult Med) [address] [place] [address] 03/09/2021 10:59:03 03/10/2021 06:42:42 Asthma 163481581 J45.31 with uri-keep good hydrationc ontinue inhalers Hyperlipidemia 35935616 E78.49 healthy diet and exercise discussed with pt-pt is willing to try statin [id number] MD Daly [facility] (Adult Med) [address] [place] [address] 07/15/2021 10:47:14 07/18/2021 10:23:47 Hyperlipidemia 68114342 E78.49 healthy diet and exercise discussed with pt-pt to continue statin Asthma 728159218 J45.31 stable -continue inhalers Body mass index 25-29 - overweight 253904527 E66.3 Elevated blood-pressure reading without diagnosis of hypertension 694755879 R03.0 possibly due to asthma attack-cristhian l reassess in a wk Painless r ectal bleeding 201066344 K62.5 - pt wants to see GI [id number] [facility] [address] [place] [address] 01/16/2022 10:54:01 01/17/2022 11:08:47 Hyperlipidemia 36291298 E78.49 healthy diet and exercise discussed with pt-pt to continue statin Asthma 184675608 J45.31 with bronchitis - keep good hydration- continue inhalers Insomnia 570329247 G47.0 9 pt tried Trazodone in the past- pt to go for sleep study [id number] MD Rupa Jerome (Adult Med) [address] [place] [address] 02/27/2022 12:14:43 02/28/2022 09:29:55 Asthma 984998199 J45.31 with bronchitis - keep good hydration- continue inhalers -will increase advair dose for couple of months- pt to go to ER if sob or problem gets worse Elevated blood-pressure reading without diagnosis of hypertension 452479033 R03.0 possibly due to asthma attack-cristhian l reassess with f/u [id number] MD Rupa Ram[facility]rez (Adult Med) [address] [place] [address] 05/24/2022 12:02:36 05/29/2022 14:34:50 Insomnia 426728654 G47.00 Will obtain home sleep study firstsleep hygiene discussed Asthma 435057776 J45.90 9 Advair not covered by insurance, will replace with Wixela 500 mcgRefill on nebsP Ex-cigarette smoker 2810 87164 Z87.891 tobacco : smoked for 15-20 years, stopped 6 months qgu3vcz for 15 Environmental allergy 42 3237124 T78.49XA Check allergen and IgE [id number] MD Rupa Ramírez (Adult Med) [address] [facility] [place] [address] 08/23/2022 11:34:28 08/24/2022 09:11:36 Insomnia 468529378 G47.00 negative home sleep studyinsom carmita 100 mg does not improve insomniast rop trazodoneS tart Belsomra Asthma 452832063 J45.90 9 Advair not covered by insurance, will replace with Wixela [facility]Ref[facility] on [facility] Environmental allergy 42 9634571 T78.49XA Ex-cigarette smoker 2810 77327 Z87.891 tobacco : smoked for 15-20 years, stopped 6 months dts4htn for 15 Health Concerns Section Related Observation LastModified by Organization Detai ls LastModified Time None Recorded Concern Status LastModified by Organization Details LastModified Time None Recorded Advance Directives Directive None Recorded Payers Insurance Date Sequence Insurance Name Policy Number Policy Santana Covered Member ID Santana Member ID Guarantor Name 08/24/2022 1 [facility] ON OR AFTER 09/23/20 (MEDICAID REPLACEMENT - HMO) Reji Aj [id number] Reji Aj 07/08/2019 2 *SELF PAY* Jonathon Aj 10/26/2020 1 [facility] PRIOR TO 09/23/2020 (MEDICAID REPLACEMENT - HMO) Reji Aj [id number] Reji Aj Notes Date Note Type Note Provider Name and Address Organization Details Recorded Time 07/16/19 22 text/htm l HyperlipidemiaReported by PatientHPIFor type of hyperlipidemia, patient reportscombined. For duration, patient reportschronic. For prior tests, patient reportshighest ldl level: (150). For control, patient reportsimprovingandat goal. For current therapy, patient reportscurrently taking: (statin). For compliance, patient reportscompliantandcompliant with diet. For complications, patient reportsno coronary artery disease,no peripheral artery disease, andno cardiovascular disease. Asthma F/UReported by PatientHPIFor associated symptoms, patient reportscough (mild cough with sinus drainage and congestion for a day)but reportsno fever,no cough, andno shortness of breath. For severity, patient reportsdoes not interfere with daily activities. For onset/timing, patient reportschronic. For context, patient reportsimproving. For modifying factors, patient reportsallergies(inhalers). For prior history, patient reportsoral steroids have been used for treatment. For quality, (improving). pt noticed blood in stool on and off Eleazar Simmons MD Attn: [facility], [address] [place], [address], [facility] 07/15/2021 11:34:35 01/17/20 22 text/htm l InsomniaReported by PatientHPIFor severity, patient reportsworsening. For context, patient reportstakes 2 hours to fall asleep. For quality, patient reportssymptoms worse during the day. For associated symptoms, patient reportsno anxietyandno snoring. HyperlipidemiaReported by PatientHPIFor type of hyperlipidemia, patient reportscombined. For duration, patient reportschronic. For prior tests, patient reportshighest ldl level: (150). For control, patient reportsimprovingandat goal. For current therapy, patient reportscurrently taking: (statin). For compliance, patient reportscompliantandcompliant with diet. For complications, patient reportsno coronary artery disease,no peripheral artery disease, andno cardiovascular disease. Asthma F/UReported by PatientHPIFor associated symptoms, patient reportscough (cough with sinus drainage and congestion for more than a wk)but reportsno fever,no cough, andno shortness of breath. For severity, patient reportsdoes not interfere with daily activities. For onset/timing, patient reportschronic. For context, patient reportssame. For modifying factors, patient reportsallergies(inhalers). For prior history, patient reportsoral steroids have been used for treatment. For quality, (fairly stable). Eleazar Simmons MD Attn: [employer], [address] [place], [address], [facility] 01/16/2022 15:29:30 02/28/20 22 text/htm l Upper Respiratory SymptomsReported by PatientUpper Respiratory SymptomsFor quality, patient reportscongestedandwheezy cough. For context, patient reportsasthmabut reportsno sick contacts. For associated symptoms, patient reportswheezingandfatiguebut reportsno feverandno sore throat. For location, patient reportschest. For severity, patient reportsmoderate. For duration, (1 wk). Eleazar Simmons MD Attn: [employer], [address] [place], [address], [facility] 02/27/2022 14:21:34 05/25/19 23 text/htm l ROS as noted in the HPI Referred for insomnia pmh; asthma, hiatal hernia,hld Complaint of awakening in middle of night with difficulty going back to sleephas been an issue for most of his life denies snoring or morning headaches+daytime fatigue+awakens with SOB, also has asthma trailed on trazodone for sleep in the past with no improvementalso no improvement with melatonin weight fluctuation of 30 lbs during winter and summer caffeine - soda, throughout the day tobacco : smoked for 15-20 years, stopped 6 months msd4gtt for 15denies drug use asthma as a childalbuteroladvair 500 mcgalbuterol nebontelukast 4-5 ER/urgent car visit in past 1 yrdenies hospitalizationmultiple steroid rounds over past year smokers in home1 dog ADRIANA YOUSSEF NP Attn: [employer], [address] [place], [address], [facility] 05/24/2022 14:36:20 08/24/19 23 text/htm l ROS as noted in the HPI f/u for insomnia pmh; asthma, hiatal hernia,hld Complaint of awakening in middle of night with difficulty going back to sleephas been an issue for most of his life home sleep study- negative for [facility] weight fluctuation of 30 lbs during winter and summer caffeine - soda, throughout the day tobacco : smoked for 15-20 years, 1ppd for 15stopped 9 months ago denies drug use asthma as a childalbuteroladvair 500 mcgalbuterol nebs montelukast and loratadinehas appointment with business programmer at [facility] next month smokers in home1 dog ADRIANA YOUSSEF NP Attn: [employer], [address] [place], [address], [facility] 08/24/2022 00:17:02
--- OUTSIDE RECORDS SUMMARY | 2025-01-24 08:58 | XMS_ITS | Encounter Summary ---
Author Organization [facility] Address [address] [place] [address] Care Team Providers Care Shear Operator Automatic Name Role Phone Unavailable Primary Care Provider Unavailabl e Encounter Details Date Type Department Care Team (Late st Contact Info) Description 10/11/2001 Outpatient Historical 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
--- OUTSIDE RECORDS SUMMARY | 2025-01-24 08:58 | XMS_ITS | Clinical Summary ---
Author Organization [facility] Address [address] [place] [address] Care Team Providers Care Producer Assistant Name Role Phone Unavailable Primary Care Provider Unavailabl e Source Comments [facility],non-owned Affiliates and Associated Physician Practices is amultiple site organization consisting of ambulatory clinics and hospital sitesin [place], [place], [place] and [place]. This disclosure is being madepursuant to the Care Everywhere program and may not contain all information available regarding this patient. Last updated 17.[facility] Social History Tobacco Use Types Packs/Day Years [...] patient's age to complete this topic Insurance [facility]
[2025-01-24 09:04] VITALS: BP 149/96; PULSE 89; RESP 20; TEMP 36.7; O2SAT 96
--- NOTE | 2025-01-24 09:09 | ED.URI ---
HPI - URI/Sore Throat General Chief Complaint: Upper Respiratory Infection Stated Complaint: Congestion/asthma Patient presents to the [facility] with complaints of continued wheezing, shortness of breath, chest tightness, nasal congestion, and fatigue. Patient reports being evaluated 1 week ago at this facility and was evaluated in the emergency room 5 days ago. Patient started on prednisone and finished that today but reports he feels he does need another round of steroids and possibly an antibiotic due to continued symptoms and his history of asthma, bronchitis asthma and sinus infections. Patient has been taking his daily steroid inhaler as well as [id number] medications. Denies fever, chills, body aches, dizziness, nausea, vomiting, diarrhea Related Data Home Medications ?Medication ?Instructions ?Recorded ?Confirmed ?Last Taken ?Type albuterol sulfate 90 mcg/actuation 2 puff inhalation QID PRN 04/24/19 12/17/23 Unknown History aerosol inhaler Shortness Of Breath Or Wheezing atorvastatin 10 mg tablet 10 mg PO DAILY 05/08/21 12/17/23 Unknown History ipratropium 0.5 mg-albuterol 3 mg 3 ml inhalation Q4-6H PRN 04/14/22 12/17/23 Unknown History (2.5 mg base)/3 mL nebulization Shortness Of Breath soln trazodone 50 mg tablet 50 mg PO DAILY 02/24/23 12/17/23 Unknown History budesonide-formoterol HFA 160 See Rx Instructions .Route .COMPLEX 07/30/23 12/17/23 Unknown History mcg-4.5 mcg/actuation aerosol inhaler (Symbicort) loratadine 10 mg tablet 10 mg PO DAILY 07/30/23 12/17/23 Unknown History tiotropium bromide 1.25 See Rx Instructions .Route .COMPLEX 07/30/23 12/17/23 Unknown History mcg/actuation mist for inhalation (Spiriva Respimat) fluticasone propionate 50 intranasal 01/14/25 Unknown History mcg/actuation nasal spray,suspension montelukast 10 mg tablet mg 01/14/25 Unknown History Allergies Allergy/AdvReac Type Severity Reaction Status Date / Time No Known Allergies Allergy Verified 01/24/25 08:57 Review of Systems Constitutional: Constitutional: Reports as per HPI, Denies chills, Reports fatigue, Denies fever(s) and Denies weakness Eyes: Eyes: Reports no additional eye complaints ENT: Reports as per HPI, Denies vertigo, Denies dizziness, Reports nasal congestion and Denies sore throat Cardiovascular: Cardiovascular: Reports no additional cardiovascular complaints Respiratory: Respiratory: Reports as per HPI, Reports chest congestion, Reports cough, Reports dyspnea and Reports wheezing Gastrointestinal: Gastrointestinal: Reports no additional gastrointestinal complaints Genitourinary: Genitourinary: Reports no additional male genitourinary complaints Musculoskeletal: Musculoskeletal: Reports no additional musculoskeletal complaints Integumentary/Breasts: Skin/Breast: Reports system reviewed and no additional complaints, except as docu Neurologic: Reports as per HPI, Denies vertigo, Denies dizziness, Denies headache(s), Denies numbness and Denies weakness Psychiatric: Psychiatric: Reports no additional psychiatric complaints Endocrine: Endocrine: Reports no additional endocrine complaints Hematologic/Lymphatic: Hematologic/Lymphatic: Reports no additional hematologic/lymphatic complaints Allergic/Immunologic: Allergic/Immunologic: Reports as per HPI and Reports wheezing PMFSH Past Medical History Medical History Elevated cholesterol Muscular dystrophy Seasonal allergies Asthma Surgical History Surgical History No pertinent past surgical history Family History Family History Mother Family history non-contributory Social History Social History Social History: Has some exposure to 2nd hand tobacco Smoking packs per day: 0.25 Smoking cigarettes per day: 5.0 Years smoked: 20 Smoking pack-years: 5.00 Smoking status: Former smoker Additional smoking assessment comments: quit one year ago Alcohol intake: never Substance use: never Living arrangements: with family Gender identity (if verbalized by the patient): Male Exam Const: General: healthy appearing and no acute distress Nutritional Appearance: well nourished Orientation/consciousness: patient oriented x3 Limitations: no limitations HENMT: Head: normal to inspection Ears: external ears normal and TM's normal bilaterally Face/Nose/Sinus: Normal external nose present and Normal nares present Face and sinus: normal facial exam and sinuses nontender Mouth: Yes Normal oral and palatal mucosa present, Yes lip normal and Yes moist mucous membranes Throat: posterior oropharynx normal Neck: Neck: normal visual inspection and no lymphadenopathy Resp: Effort & Inspection: normal respiratory effort Auscultation: rhonchi, wheezes and diminished lung sounds Other: congested cough noted Cardio: Rate: regular rate Rhythm: regular rhythm Skin: General skin exam: normal color Rashes: no rashes Wounds: no wounds Neuro: General: patient oriented x3 and moves all extremities Speech: normal speech Gait exam (Neuro): Normal gait present Psych: Mental Status: mental status grossly normal Affect: normal affect Attitude: cooperative Course Course Level of Care: Express Care Visit MDM - URI/Sore Throat MDM Narrative Medical decision making narrative: Continued significant wheezing throughout lung wilkinson. The patient was evaluated by myself in the express care. History is obtained from patient who is an independent historian and physical exam was performed. Available medical records were reviewed at this time. Exam findings show no acute concerns or changes; patient is non-toxic appearing and is in no distress. Patient is appropriate for outpatient treatment and follow-up. I have evaluated and discussed social determinants of health with the patient that could potentially impact subsequent diagnosis and treatment plans. Differential diagnosis and treatment plan were discussed with the patient. Patient agrees with discussion and after shared medical decision making agrees with plan of care. All questions were answered to the patient's satisfaction. Differential Diagnosis Differential diagnosis: Likely upper respiratory infection, otitis media, sinusitis, viral infection, bronchitis and pharyngitis Medical Records Attestation: I reviewed the patient's medical records. Discharge Plan Discharge Clinical Impression: Bronchitis, Sinusitis Patient Disposition: Home Condition: Stable Instructions: Antibiotic Form, Chronic Bronchitis (ED) Additional Instructions: Take the antibiotics as directed for the entire course. Do not miss any doses. What you are taking antibiotics and is recommended to take a probiotic or have yogurt daily to return the good gut bacteria to your system. This can also help with acute diarrhea while taking antibiotics. It can take 24-48 hours for the antibiotics to start to relieve your symptoms continue to take these medications to help with various symptoms: Tylenol or Motrin for pain, headache, or fever Flonase/fluticasone or Nasacort/triamcinolone nasal spray- helps with congestion and nasal drainage. Sudafed/pseudoephedrine helps with sinus pain and congestion. Caution with high blood pressure. Use a humidifier or vaporizer at night. Drink plenty of water. 8-10 glasses per day. Mucinex/[place] directed and be sure to take with 8oz of water. Warm compresses over the forehead and cheeks to promote sinus drainage. Return to urgent care or go to the ER for new or worsening symptoms. Follow up with Primary provider if not improved after 1 week. Patient Language: Icelandic Prescriptions: New prednisone 10 mg tablet 10 mg PO DIRECTED Qty: 18 0RF Rx Instructions: take 3 tablets for 3 days, 2 tablets for 3 days, 1 tablet for 3 days doxycycline monohydrate 100 mg capsule 100 mg PO BID Qty: 20 0RF ipratropium-albuterol 0.5 mg-3 mg(2.5 mg base)/3 mL solution for nebulization 3 ml inhalation QID PRN (Reason: shortness of breath or wheezing) Qty: 90 0RF No Action albuterol sulfate 2.5 mg /3 mL (0.083 %) solution for nebulization 2.5 mg INHALATION Q4H PRN (Reason: shortness of breath or wheezing) Qty: 90 0RF atorvastatin 10 mg Tablet 10 mg PO DAILY trazodone 50 mg tablet 50 mg PO DAILY loratadine 10 mg tablet 10 mg PO DAILY budesonide-formoterol [Symbicort] 160-4.5 mcg/actuation HFA aerosol inhaler See Rx Instructions .ROUTE .COMPLEX Rx Instructions: as prescribed Spiriva Respimat 1.25 mcg/actuation mist See Rx Instructions .ROUTE .COMPLEX Rx Instructions: as prescribed montelukast 10 mg tablet fluticasone propionate 50 mcg/actuation spray,suspension INTRANASAL dexamethasone [TaperDex] 1.5 mg (21 tabs) tablets,dose pack See Rx Instructions .ROUTE .COMPLEX Qty: 21 0RF Rx Instructions: orally per package directions albuterol sulfate 90 mcg/actuation Hfa Aerosol Inhaler 2 puff INHALATION QID PRN (Reason: Shortness Of Breath Or Wheezing) ipratropium-albuterol 0.5 mg-3 mg(2.5 mg base)/3 mL solution for nebulization 3 ml INHALATION Q4-6H PRN (Reason: Shortness Of Breath) albuterol sulfate 2.5 mg /3 mL (0.083 %) solution for nebulization 2.5 mg inhalation Q4H PRN (Reason: shortness of breath or wheezing) Qty: 75 0RF Follow-up/Referrals: PHYSICIAN NOT ON STAFF,NONSTAFF [Primary Care Provider] Time of Disposition: 09:19
== END 2025-01-24 09:31 | disposition home or self-care (01) ==
PROVIDERS: Emergency Provider Nurse Practitioner Family
DX: J40 Bronchitis, not specified as acute or chronic (principal); J32.9 Chronic sinusitis, unspecified; Z87.891 Personal history of nicotine dependence; G71.00 Muscular dystrophy, unspecified; E78.00 Pure hypercholesterolemia, unspecified; J45.909 Unspecified asthma, uncomplicated
CPT/HCPCS: 99213; G0463